=== PATIENT | female | born 1945 | race Caucasian/White ===

== ENCOUNTER → 2019-01-23 11:14 | Outpatient (CLI) | payer MEDICARE, OTHER, SELFPAY ==
[2019-01-23 13:02] LABS: Anion Gap 8 (5-15); BUN 29 mg/dL (7-18); Calcium,Total 9.2 mg/dL (8.5-10.1); Chloride 104 mmol/L (98-107); Cholesterol 211 mg/dL (200); Creatinine, Serum 0.64 mg/dL (0.55-1.02); EST Glomerular Filtration Rate 96 mL/min (>60); Est Glom Filt Rate - Afr Amer 116 mL/min (>60); Glucose 80 mg/dL (74-106); High Density Lipoprotein 80 mg/dL; Sodium Level 140 mmol/L (136-145); Triglycerides 108 mg/dL; Very Low Density Lipoprotein 22 mg/dL (5-40)
== END ==
PROVIDERS: Family Provider Family Medicine; PCP Family Medicine; Referring Provider Family Medicine; Visit Provider Family Medicine
DX: I10 Essential (primary) hypertension (principal)
CPT/HCPCS: 36415; 80048; 80061

== ENCOUNTER → 2019-07-28 | Outpatient (CLI) | payer MEDICARE, OTHER, SELFPAY ==
--- NOTE | 2019-07-28 14:30 | RAD_ITS ---
STUDY: X-RAY CHEST REASON FOR EXAM: Female, 73 years old. Shortness of breath. Right lung mass. TECHNIQUE: Frontal view of the chest COMPARISON: None. FINDINGS: There is a 5.0 x 4.3 cm right apical mass. The lungs are otherwise clear. There are no pleural effusions. There is no pneumothorax. The heart is normal in size. The visualized osseous structures are within normal limits. RAD/Chest PA and Lateral IMPRESSION: 5.0 x 4.3 cm right apical mass. No pulmonary infiltrates or pleural effusions. Electronically Signed: Matty Caldera, at 15:00 EDT Tel , Service support ,
[2019-07-28 17:58] LABS: T4 Total, Thyroxin 9.4 ug/dL (4.8-13.9); Thyroid Stim Hormone (TSH) 1.82 uIU/mL (0.358-3.74)
== END | disposition home or self-care (01) ==
LOC: MTLAB 14:27
PROVIDERS: Family Provider Family Medicine; PCP Family Medicine; Referring Provider Family Medicine; Visit Provider Family Medicine
DX: E04.1 Nontoxic single thyroid nodule (principal); R91.8 Other nonspecific abnormal finding of lung field
CPT/HCPCS: 36415; 71046; 84436; 84443

== ENCOUNTER → 2019-07-31 | Outpatient (CLI) | payer MEDICARE, OTHER, SELFPAY ==
--- NOTE | 2019-07-31 13:13 | US_ITS ---
STUDY: THYROID ULTRASOUND REASON FOR EXAM: Female, 73 years old. Nodule. TECHNIQUE: Ultrasound evaluation of the thyroid was performed with real-time and static silveira-scale imaging. COMPARISON: None. FINDINGS: RIGHT LOBE: The right lobe of the thyroid gland measures 4.1 x 1.0 x 1.6 cm. There is a homogeneous echotexture. There are no demonstrated solid, cystic or complex lesions. Normal vascularity on Doppler imaging. LEFT LOBE: The left lobe of the thyroid gland measures 2.6 x 1.7 x 1.2 cm. There is a homogeneous echotexture. There are no demonstrated solid, cystic or complex lesions. There is normal vascularity on Doppler imaging. ISTHMUS: The isthmus measures 0.2 cm. The regional lymph nodes are normal. US/Thyroid IMPRESSION: Normal ultrasound examination of the thyroid. Electronically Signed: Ilan Delarosa DO at 17:17 EDT Tel [phone], Service support ,
== END | disposition home or self-care (01) ==
LOC: US 13:09
PROVIDERS: Family Provider Family Medicine; PCP Family Medicine; Referring Provider Family Medicine; Visit Provider Family Medicine
DX: E04.1 Nontoxic single thyroid nodule (principal)
CPT/HCPCS: 76536

== ENCOUNTER → 2020-03-02 | Outpatient (CLI) | payer MEDICARE, OTHER, SELFPAY ==
--- NOTE | 2020-03-02 09:15 | RAD_ITS ---
STUDY: X-RAY - LEFT WRIST REASON FOR EXAM: Female, 74 years old. NO KNOWN INJURY. PAIN IN LEFT WRIST LATERALLY FOR ALMOST 2 WEEKS NOW. TECHNIQUE: 3 view(s) of the wrist were obtained. COMPARISON: None. FINDINGS: Normal visualized distal radius and ulna. Normal radiocarpal articulation. Normal distal radioulnar articulation. Normal carpal bones. Normal carpal articulations. Normal carpometacarpal articulation of the thumb. Normal second through fifth carpometacarpal articulations. Normal visualized metacarpal bones. Mild degree of soft tissue swelling. RAD/Wrist min 3 Views IMPRESSION: Mild soft tissue swelling. Electronically Signed: Rik Hanna, at 11:11 EDT , Service support ,
[2020-03-02 10:15] LABS: Anion Gap 1 (5-15); BUN 25 mg/dL (7-18); BUN/Creat Ratio 29.9 RATIO (10-20); Calcium,Total 9.8 mg/dL (8.5-10.1); Chloride 106 mmol/L (98-107); Creatinine, Serum 0.84 mg/dL (0.55-1.02); EST Glomerular Filtration Rate 71 mL/min (>60); Est Glom Filt Rate - Afr Amer 85 mL/min (>60); Glucose 66 mg/dL (74-106); Potassium 4.3 mmol/L (3.5-5.1); Sodium Level 140 mmol/L (136-145)
== END | disposition home or self-care (01) ==
PROVIDERS: PCP Family Medicine; Referring Provider Family Medicine; Visit Provider Family Medicine
DX: I10 Essential (primary) hypertension (principal); M25.532 Pain in left wrist
CPT/HCPCS: 36415; 73110; 80048

== ENCOUNTER → 2020-11-22 14:09 | Outpatient (CLI) | payer MEDICARE, OTHER, SELFPAY ==
[2020-11-22 18:09] LABS: Absolute Lymphocyte Count 1.33 X10^3/uL (0.83-4.51); Absolute Neutrophil Count 3.4 X10^3/uL (2.0-7.7); Basophil# 0.05 X10^3/uL; Basophil% 0.8 % (0-1); Eosinophil# 0.48 X10^3/uL; Eosinophils% 8.1 % (0-5); Hemoglobin 11.1 g/dL (12.0-15.0); Lymphocyte # 1.33 X10^3/ul (4.0); Lymphocyte % 22.6 % (19-41); Mean Corp Hgb Conc 29.2 g/dL (32-36); Mean Corpuscular Hgb 26.9 pg (27.0-32.0); Mean Platelet Vol. 10.4 fl (6.2-12.0); Monocyte# 0.63 X10^3/uL; Monocyte% 10.7 % (0-10); NRBC Flagged by Analyzer 0 % (0-5); Neutrophil # 3.39 X10^3/uL (2.7-7.7); Neutrophil % 57.6 % (47-70); Platelet Count 466 K/mm3 (150-450); RBC Distribution Width CV 14.7 % (11.6-14.6); RBC Distribution Width SD 49.8 fl (35.1-43.9); Red Blood Count 4.13 M/mm3 (4.2-5.4); White Blood Count 5.9 K/mm3 (4.4-11.0)
== END ==
PROVIDERS: PCP Family Medicine; Visit Provider Family Medicine
DX: D64.9 Anemia, unspecified (principal)
CPT/HCPCS: 36415; 85025

== ENCOUNTER → 2021-03-15 12:34 | Outpatient (CLI) | payer MEDICARE, OTHER, SELFPAY ==
--- NOTE | 2021-03-15 12:42 | RAD_ITS ---
INDICATION: NUMBNESS AND TINGLING EXAMINATION/TECHNIQUE: X-RAY - XR Spine Cervical 4 or 5 Views COMPARISON: None. FINDINGS: VERTEBRAE: Preserved vertebral body height. No fracture. Multilevel spondylolisthesis including 2 mm retrolisthesis C2 on C3, 3 mm anterolisthesis C4 on C5, 1 mm anterolisthesis C6 on C7 and 2 mm anterolisthesis C7 on T1. Preservation of the normal cervical lordosis. Moderate multilevel facet arthropathy. Posterior fusion hardware from T1 to T3. DISCS: Moderate multilevel disc space narrowing and osteophytosis. NECK SOFT TISSUES: No prevertebral soft tissue widening. LUNG APICES: Clear. RAD/Cerv Spine 4 or 5 Views IMPRESSION: Multilevel spondylolisthesis as described above. Moderate multilevel cervical spondylosis and facet arthropathy. Posterior fusion T1 to T3. Electronically Signed: Saeid Moyer MD at 23:56 EDT Tel , Service support ,
== END ==
PROVIDERS: PCP Family Medicine; Referring Provider Family Medicine; Visit Provider Family Medicine
DX: R20.0 Anesthesia of skin (principal); R20.2 Paresthesia of skin
CPT/HCPCS: 72050

== ENCOUNTER → 2021-05-31 14:10 | Outpatient (CLI) | payer MEDICARE, OTHER, SELFPAY ==
[2021-05-31 17:39] LABS: Absolute Lymphocyte Count 0.99 X10^3/uL (0.83-4.51); Absolute Neutrophil Count 4.2 X10^3/uL (2.0-7.7); Basophil# 0.04 X10^3/uL; Basophil% 0.7 % (0-1); Eosinophil# 0.09 X10^3/uL; Eosinophils% 1.5 % (0-5); Hematocrit 46.1 % (37-47); Hemoglobin 14.7 g/dL (12.0-15.0); Lymphocyte # 0.99 X10^3/ul (0.83-4.51); Lymphocyte % 16.9 % (19-41); Mean Corp Hgb Conc 31.9 g/dL (32-36); Mean Corpuscular Hgb 27.9 pg (27.0-32.0); Mean Corpuscular Volume 87.6 fL (81-99); Mean Platelet Vol. 10.8 fl (6.2-12.0); Monocyte# 0.58 X10^3/uL; Monocyte% 9.9 % (0-10); NRBC Flagged by Analyzer 0 % (0-5); Neutrophil # 4.15 X10^3/uL (2.7-7.7); Neutrophil % 70.7 % (47-70); Platelet Count 311 K/mm3 (150-450); RBC Distribution Width CV 13.9 % (11.6-14.6); RBC Distribution Width SD 44.5 fl (35.1-43.9); Red Blood Count 5.26 M/mm3 (4.2-5.4); White Blood Count 5.9 K/mm3 (4.4-11.0)
[2021-05-31 18:42] LABS: Anion Gap 6 (5-15); BUN 22 mg/dL (7-18); BUN/Creat Ratio 28.9 RATIO (10-20); Calcium,Total 9.4 mg/dL (8.5-10.1); Chloride 102 mmol/L (98-107); Creatinine, Serum 0.76 mg/dL (0.55-1.02); EST Glomerular Filtration Rate 78 mL/min (>60); Est Glom Filt Rate - Afr Amer 95 mL/min (>60); Glucose 89 mg/dL (74-106); Magnesium 2.1 mg/dL (1.6-2.6); Potassium 3.8 mmol/L (3.5-5.1); Sodium Level 139 mmol/L (136-145)
== END ==
PROVIDERS: PCP Family Medicine; Visit Provider Family Medicine
DX: K21.9 Gastro-esophageal reflux disease without esophagitis (principal); D64.9 Anemia, unspecified; I10 Essential (primary) hypertension
CPT/HCPCS: 36415; 80048; 83735; 85025

== ENCOUNTER → 2022-06-12 | Outpatient (CLI) | payer MEDICARE, OTHER, SELFPAY ==
[2022-06-12 12:31] LABS: Anion Gap 5 (5-15); BUN 25 mg/dL (7-18); BUN/Creat Ratio 39.8 RATIO (10-20); Calcium,Total 9.4 mg/dL (8.5-10.1); Chloride 105 mmol/L (98-107); Cholesterol 217 mg/dL (200); Creatinine, Serum 0.63 mg/dL (0.55-1.02); EST Glomerular Filtration Rate 98 mL/min (>60); Est Glom Filt Rate - Afr Amer 118 mL/min (>60); Glucose 79 mg/dL (74-106); High Density Lipoprotein 70 mg/dL; Sodium Level 142 mmol/L (136-145); Triglycerides 166 mg/dL; Very Low Density Lipoprotein 33 mg/dL (5-40)
== END | disposition home or self-care (01) ==
LOC: MFPLAB 10:17
PROVIDERS: PCP Family Medicine; Visit Provider Family Medicine
DX: I10 Essential (primary) hypertension (principal)
CPT/HCPCS: 36415; 80048; 80061

== ENCOUNTER → 2022-06-21 | Outpatient (CLI) | payer MEDICARE, OTHER, SELFPAY ==
--- NOTE | 2022-06-21 11:00 | BD_ITS ---
STUDY: DUAL ENERGY X-RAY ABSORPTIOMETRY / DXA REASON FOR EXAM: Female, 76 years old. [id number]. Patient is postmenopausal. TECHNIQUE: Bone Mineral Density (BMD) measurements of lumbar spine and bilateral hips were obtained. COMPARISON: None. FINDINGS: Lumbar Spine (L1-L4): g/cm2 (0.680) / T-score (-3.3) / Z-score (-0.8) Findings are suggestive of osteoporosis with a high fracture risk. Left Femur Total: g/cm2 (0.619) / T-score (-2.7) / Z-score (-0.7) Left Femoral Neck: g/cm2 (0.507) / T-score (-3.1) / Z-score (-0.9) Right Femur Total: g/cm2 (0.576) / T-score (-3.0) / Z-score (-1.1) Right Femoral Neck: g/cm2 (0.498) / T-score (-3.2) / Z-score (-1.0) BD/Dexa Bone Density Study IMPRESSION: The patient is considered osteoporotic as outlined below according to World [employer] Organization (WHO) criteria with a high fracture risk. Reference Information: The T-score is the number of standard deviations above or below the standard which is normal for young adults at their peak bone mineral density. The World Health Organization (WHO) interprets the T-scores as follows: Above -1 Normal bone density Between -1 and -2.5 Osteopenia Equal to / or below -2.5 Osteoporosis As a practical clinical guideline, osteopenia may be graded as follows: Mild -1 through -1.5 Moderate -1.6 through -2.0 Severe -2.1 through -2.4 The Z-score is the number of standard deviations above or below age-matched controls. A Z-score of less than -1.5 would be considered abnormal. References: 1. NIH Osteoporosis and Related Bone Diseases www osteo.org 2. International Society for Clinical Densitometry www iscd.org 3. National Osteoporosis Foundation www nof.org Electronically Signed: Rik Hanna MD at 11:21 EDT ,
== END | disposition home or self-care (01) ==
LOC: OPBD 10:52
PROVIDERS: PCP Family Medicine; Visit Provider Family Medicine
DX: M81.0 Age-related osteoporosis without current pathological fracture (principal); Z78.0 Asymptomatic menopausal state; M85.80 Other specified disorders of bone density and structure, unspecified site
CPT/HCPCS: 77080

== ENCOUNTER → 2023-03-11 | Outpatient (CLI) | payer MEDICARE, OTHER, SELFPAY | END | disposition home or self-care (01) | PROVIDERS: PCP Family Medicine; Visit Provider Family Medicine | DX: R19.7 Diarrhea, unspecified (principal) | CPT/HCPCS: 87177; 87209; 87493 ==

== ENCOUNTER → 2023-04-16 | Outpatient (CLI) | payer MEDICARE, OTHER, SELFPAY ==
[2023-04-16 17:58] LABS: Absolute Lymphocyte Count 1.11 X10^3/uL (0.83-4.51); Absolute Neutrophil Count 3.5 X10^3/uL (2.0-7.7); Basophil# 0.04 X10^3/uL; Basophil% 0.7 % (0-1); Eosinophil# 0.22 X10^3/uL; Hematocrit 42.8 % (37-47); Hemoglobin 13.3 g/dL (12.0-15.0); Lymphocyte # 1.11 X10^3/ul (0.83-4.51); Lymphocyte % 20.1 % (19-41); Mean Corp Hgb Conc 31.1 g/dL (32-36); Mean Corpuscular Hgb 28.2 pg (27.0-32.0); Mean Corpuscular Volume 90.9 fL (81-99); Mean Platelet Vol. 10.8 fl (6.2-12.0); Monocyte# 0.63 X10^3/uL; Monocyte% 11.4 % (0-10); NRBC Flagged by Analyzer 0 % (0-5); Neutrophil # 3.52 X10^3/uL (2.7-7.7); Neutrophil % 63.6 % (47-70); Platelet Count 290 K/mm3 (150-450); RBC Distribution Width CV 14.1 % (11.6-14.6); RBC Distribution Width SD 47.4 fl (35.1-43.9); Red Blood Count 4.71 M/mm3 (4.2-5.4); White Blood Count 5.5 K/mm3 (4.4-11.0)
[2023-04-16 18:45] LABS: ALB/GLOB Ratio 0.9 RATIO (0.9-2.4); AST(SGOT) 29 U/L (15-37); Alanine Aminotransfer ALT/SGPT 29 U/L (13-56); Albumin, Serum 3.4 g/dL (3.2-5.0); Alkaline Phosphatase 100 U/L (45-117); Anion Gap 6 (5-15); BUN 27 mg/dL (7-18); BUN/Creat Ratio 36.7 RATIO (10-20); Calcium,Total 8.9 mg/dL (8.5-10.1); Chloride 107 mmol/L (98-107); Creatinine, Serum 0.74 mg/dL (0.55-1.02); EST Glomerular Filtration Rate 81 mL/min (>60); Est Glom Filt Rate - Afr Amer 98 mL/min (>60); Globulin 3.7 g/dL (2.2-4.2); Glucose 88 mg/dL (74-106); Protein, Total 7.1 g/dL (6.4-8.2); Sodium Level 141 mmol/L (136-145); Thyroid Stim Hormone (TSH) 1.55 uIU/mL (0.358-3.74)
== END | disposition home or self-care (01) ==
LOC: MTLAB 16:26
PROVIDERS: PCP Family Medicine; Referring Provider Family Medicine; Visit Provider Family Medicine
DX: R06.02 Shortness of breath (principal)
CPT/HCPCS: 36415; 80053; 82378; 84443; 85025

== ENCOUNTER → 2023-06-12 | Outpatient (CLI) | payer MEDICARE, OTHER, SELFPAY ==
[2023-06-12 12:51] LABS: Cholesterol 210 mg/dL (200); High Density Lipoprotein 78 mg/dL; Triglycerides 124 mg/dL; Very Low Density Lipoprotein 25 mg/dL (5-40)
[2023-06-12 13:14] LABS: Vitamin D,25 Hydroxy 47.8 ng/mL
== END | disposition home or self-care (01) ==
LOC: MFPLAB 09:47
PROVIDERS: PCP Family Medicine; Visit Provider Family Medicine
DX: I10 Essential (primary) hypertension (principal); M81.0 Age-related osteoporosis without current pathological fracture
CPT/HCPCS: 36415; 80061; 82306

== ENCOUNTER 2024-06-28 10:46 | Emergency (ER) | payer MEDICARE, OTHER, SELFPAY ==
[2024-06-28 10:47] VITALS: BP 179/77; PULSE 64; RESP 16; TEMP 36.7; O2SAT 97; BMI 19.5
--- NOTE | 2024-06-28 11:01 | EDS_ITS ---
HPI HPI - Fall History of Present Illness Chief Complaint: Fall PFSH PFSH Allergy/AdvReac Type Severity Reaction Status Date / Time atenolol (From Tenormin) Allergy Mild Other Verified 06/28/24 10:52 lisinopril Allergy Mild Swelling Verified 06/28/24 10:52 Penicillins Allergy Mild RASH Verified 06/28/24 10:52 Social History Smoking Status: Never smoker EXAM Physical Exam Const Vital Signs: 06/28/24 10:47 06/28/24 11:14 Temperature 98.0 F Temperature Source Temporal Pulse Rate 64 Respiratory Rate 16 Respiratory Effort Normal Respiratory Depth Normal Blood Pressure 179/77 H Blood Pressure Mean 111 Pulse Ox 97 Oxygen Delivery Method Room Air MDM MDM MDM Narrative Medical decision making narrative: HISTORY OF PRESENT ILLNESS: 78-year-old female reports fall from stool last night with report of injury to left wrist, bilateral shoulders. Patient also complains about headache but denies head trauma. Notes she was standing on a kid stool. States she was trying to reattach a tension. She notes she fell down onto her back. She is unsure how she fell. She is sure she not hit her head. She complains of bilateral shoulder pain left wrist pain. She notes history of spinal surgery. Denies taking blood thinners. Denies any vomiting. Nothing focal loss of movement or sensation. REVIEW OF SYSTEMS: Pertinent positives: Wrist pain, shoulder pain and headache Pertinent negatives: Vomiting, abdominal pain PHYSICAL EXAM: Nursing triage notes reviewed, Vital signs reviewed Primary Survey Airway: Intact Breathing: Bilateral breath sounds Circulation: Palpable bilateral femorals, Palpable bilateral radial, Palpable bilateral DP and Palpable bilateral PT Disability / Spine precautions GCS Score: Eye Openin Verbal Response: 5 Motor Response: 6 Secondary Survey Constitutional: Please see MDM Head: Atraumatic, Midface stable, NO jaw malocclusion, No Cephalohematoma, and No Lacerations noted Eye: Pupils equal round and reactive to light, Extraocular muscles intact and No periorbital ecchymosis or stepoff, no evidence of entrapment ENT: Oropharynx clear, no lacerations, no hemotympanum, no raccoon eyes or umaña sign Cervical spine / Neck: No cervical spine bony tenderness, crepitance, or stepoff deformity Trachea midline Lungs: Clear to auscultation, No asymmetric rise and No crepitus, no flail chest Cardiac: Regular rate and rhythm and No murmurs Abdomen: Soft, Nontender and No rebound Pelvis: Pelvis stable to compression : No evidence of genital injury Back: TTP over cervical thoracic and upper lumbar vertebrae. Neuro: At baseline, intact strength and sensation in bilateral upper and lower extremities. 2+ patellar reflexes bilaterally. Extremities: NO gross Deformities, TTP over bilateral shoulders and left wrist. Psych: Normal affect Skin: Surgical scars noted over the thoracic spine, clean dry intact no fluctuance induration. Nursing triage notes reviewed, Vital signs reviewed MEDICAL DECISION MAKING: Chief Complaint: Fall External records reviewed: Imaging reviewed: X-ray of the cervical spine from 2020 shows multilevel spondylolisthesis, fusion of T1-T3 Factors affecting care: Prior spinal fusion Social determinants of health: Elderly History obtained from others: Family friend Consults: none MDM Narrative: Patient was initially hypertensive with a blood pressure 179/77, afebrile and nontoxic-appearing Primary and secondary trauma surveys concerning for intracranial, cervical, thoracic, lumbar spine injury, bilateral shoulder injury and left wrist injury. I considered the following differential diagnosis: As above I obtained a broad imaging workup to further elucidate the etiology of the patient complaint. I treated the patient's symptoms with oral Tylenol. ALL IMAGES (IF OBTAINED) HAVE BEEN PERSONALLY REVIEWED AND INTERPRETED BY MYSELF. X-ray of the left wrist and bilateral shoulder was read and reviewed personally by myself and showed no evidence of obvious fracture dislocation. Radiologist agrees my interpretation CT scans of the head, cervical spine thoracic lumbar spine showed no evidence of obvious bony abnormality. Tertiary trauma exam without new injury. Patient ambulated well Emergency Department. Appropriate discharge home. She is concern for contusions of the involved areas. This will improve without intervention. Strict return precautions discussed. The patient and/or family, caregivers express understanding. The patient and/or family, caregivers agrees with the plan. Shared decision making: I will have a discussion with the patient and or visitors regarding risk/benefits of further testing or admission. They will be made aware of of the risk/benefits inherent in this decision they will be given the opportunity to voice understanding. Total critical care time today provided was at least 0 minutes. This excludes separately billable procedures. Critical care time (if documented) is secondary to the patient having high probability of clinically significant/life threatening deterioration in the patient's condition which required my urgent intervention. Impression: 1. Fall 2. Bilateral shoulder contusion 3. Left wrist contusion 4. History of T1-T3 posterior spinal fusion Dispo: Discharge home This note was generated with [employer] dictation software. It may contain incorrect words, spelling, and punctuation that were not noted in review of the chart prior to signing. Radiography Diagnostic Testing: Clinical Impression(s) from Imaging Studies Brain CT 06/28/24 11:12 IMPRESSION: No acute intracranial abnormality. Chronic ischemic and atrophic changes. Electronically Signed: Matty Caldera MD at 12:02 EDT , Cervical Spine CT 06/28/24 11:12 IMPRESSION: No fracture or dislocation in the cervical spine. Normal alignment. Mild degenerative change. Electronically Signed: Matty Caldera MD at 12:05 EDT , Lumbar Spine CT 06/28/24 11:12 IMPRESSION: Multilevel degenerative changes worse at the level of L4-L5 as described above. Electronically Signed: Black León MD at 12:10 EDT , Shoulder X-Ray 06/28/24 11:12 IMPRESSION: Negative radiographs of the bilateral shoulders. Electronically Signed: Matty Caldera MD at 11:55 EDT , Thoracic Spine CT 06/28/24 11:12 IMPRESSION: No fracture or dislocation in the thoracic spine. Status post posterior fusion of T1-T3. Mild degenerative change. Electronically Signed: Matty Caldera MD at 12:11 EDT , Wrist X-Ray 06/28/24 11:12 IMPRESSION: No fracture or dislocation in the left wrist. Mild degenerative change. Electronically Signed: Matty Caldera MD at 11:56 EDT , Discharge Plan Triage Chief Complaint: Fall ED Provider: Ty Veliz Dx/Rx/DC Orders Primary Care Provider: Lesley Bang Referrals: Leslye Bang MD [Primary Care Provider] - Print Language: Croatian
--- NOTE | 2024-06-28 11:12 | CT_ITS ---
INDICATION: back pain EXAMINATION: CT LUMBAR SPINE - CT Spine Lumbar W/O Contrast Injection TECHNIQUE: Helically acquired images were obtained of the lumbar spine. 2D reformats were reviewed. A radiation dose optimization technique was used for this scan. The protocol utilizes one or more of the following dose reduction techniques: automated exposure control, adjustment of mA and/or kV according to patient size,and/or use of iterative reconstruction technique. IV Contrast dosage and agent: None. RADIATION DOSAGE (If Supplied By Facility): CTDIvol = ( 15.05 ) mGy, DLP = ( 347.03 ) mGycm COMPARISON: No relevant prior comparison study available FINDINGS: VERTEBRAE: Demineralization of the osseous structures. No evidence of acute compression fracture deformity. No discrete lytic or blastic abnormality observed. Normal lumbar lordosis. Mild dextroscoliosis. DISCS and SPINAL CANAL: L1-L2: No evidence of central spinal canal or neuroforamina stenosis. L2-L3: Narrowing of the disc space. No evidence of central spinal canal or neural foraminal stenosis. L3-L4: Narrowing of the disc space. Broad-based disc bulging extending to the lateral recesses. No critical stenosis. L4-L5: Mild grade 1 anterolisthesis of L4 over L5. Broad-based disc protrusion extending to the lateral recesses. Hypertrophic degenerative changes of the facet joints. Moderate narrowing of the central spinal canal and left neural foramina. L5-S1: Degenerative changes of the facet joints. Mild broad-based disc bulging. No critical stenosis. VISUALIZED ABDOMEN: Visualized abdominal aorta is not dilated. Right renal cyst. CT/Spine Lumbar without Contrast IMPRESSION: Multilevel degenerative changes worse at the level of L4-L5 as described above. Electronically Signed: Black León MD at 12:10 EDT ,
--- NOTE | 2024-06-28 11:12 | RAD_ITS ---
STUDY: X-RAY - LEFT WRIST REASON FOR EXAM: Female, 78 years old. Fall TECHNIQUE: 3 view(s) of the wrist were obtained. COMPARISON: None. FINDINGS: There is no evidence of fracture or dislocation. There are mild degenerative changes in the radiocarpal joints. There are no radiodense foreign bodies. RAD/Wrist min 3 Views IMPRESSION: No fracture or dislocation in the left wrist. Mild degenerative change. Electronically Signed: Matty Caldera MD at 11:56 EDT ,
--- NOTE | 2024-06-28 11:12 | CT_ITS ---
STUDY: CT BRAIN WITHOUT CONTRAST REASON FOR EXAM: Female, 78 years old. Fall RADIATION DOSAGE (If Supplied By Facility): CTDIvol = ( 44.99 ) mGy, DLP = ( 748.30 ) mGycm TECHNIQUE: Transaxial CT imaging of the brain was performed without administration of intravenous contrast material. Individualized dose optimization techniques were used for this CT. COMPARISON: No relevant prior comparison study available FINDINGS: PARENCHYMA: There is no acute bleed or infarct. There are chronic ischemic and atrophic changes. VENTRICLES: There is no hydrocephalus. MASTOID AIR CELLS AND PARANASAL SINUSES: The visualized paranasal sinuses are clear. The mastoid air cells are clear. BONES: There is no skull fracture. SOFT TISSUES: The visualized soft tissues are within normal limits. CT/Brain/Head without Contrast IMPRESSION: No acute intracranial abnormality. Chronic ischemic and atrophic changes. Electronically Signed: Matty Caldera MD at 12:02 EDT ,
--- NOTE | 2024-06-28 11:12 | CT_ITS ---
STUDY: CT CERVICAL SPINE WITHOUT CONTRAST REASON FOR EXAM: Female, 78 years old. Fall. Pain. RADIATION DOSAGE (If Supplied By Facility): CTDIvol = ( 13.84 ) mGy, DLP = ( 294.75 ) mGycm TECHNIQUE: High resolution transaxial imaging was performed without contrast material. Sagittal and coronal images were reconstructed. Individualized dose optimization techniques were used for this CT. COMPARISON: No relevant prior comparison study available FINDINGS: BONES: There is no fracture in the cervical spine. The dens is intact. The vertebral body heights are maintained. There is fusion hardware noted in the upper thoracic spine. ALIGNMENT: There is no dislocation. Alignment is normal. DISC SPACES: There are mild degenerative changes. LUNG APICES: There is scarring in the lung apices. SOFT TISSUES: The visualized paraspinal soft tissues are within normal limits. CT/Spine Cervical without Contras IMPRESSION: No fracture or dislocation in the cervical spine. Normal alignment. Mild degenerative change. Electronically Signed: Matty Caldera MD at 12:05 EDT ,
--- NOTE | 2024-06-28 11:12 | RAD_ITS ---
STUDY: X-RAY - BILATERAL SHOULDERS REASON FOR EXAM: Female, 78 years old. Fall TECHNIQUE - RIGHT SHOULDER: 2 view(s) of the right shoulder were obtained. TECHNIQUE - LEFT SHOULDER: 2 view(s) of the left shoulder were obtained. COMPARISON: None. FINDINGS - RIGHT SHOULDER: There is no evidence of fracture or dislocation. There are no significant degenerative changes. There are no radiodense foreign bodies. FINDINGS - LEFT SHOULDER: There is no evidence of fracture or dislocation. There are no significant degenerative changes. There are no radiodense foreign bodies. RAD/Shoulder min 2 Views IMPRESSION: Negative radiographs of the bilateral shoulders. Electronically Signed: Matty Caldera MD at 11:55 EDT ,
--- NOTE | 2024-06-28 11:12 | CT_ITS ---
STUDY: CT THORACIC SPINE WITHOUT CONTRAST REASON FOR EXAM: Female, 78 years old. Fall. Pain. RADIATION DOSAGE (If Supplied By Facility): CTDIvol = ( 18.42 ) mGy, DLP = ( 581.19 ) mGycm TECHNIQUE: The patient was scanned in a multi detector CT scanner. High resolution imaging was performed. Images were obtained through the thoracic spine. Sagittal and coronal images were reconstructed. Individualized dose optimization techniques were used for this CT. COMPARISON: No relevant prior comparison study available FINDINGS: BONES: There is fusion hardware spanning T1-T3. There is no fracture in the thoracic spine. The vertebral body heights are maintained. ALIGNMENT: There is no dislocation. DISC SPACES: There are mild degenerative changes. SOFT TISSUES: The visualized paraspinal soft tissues are within normal limits. CT/Spine Thoracic without Contras IMPRESSION: No fracture or dislocation in the thoracic spine. Status post posterior fusion of T1-T3. Mild degenerative change. Electronically Signed: Matty Caldera MD at 12:11 EDT ,
[2024-06-28] MEDS: Acetaminophen 325 MG Tablet 650 MG PO (11:48)
[2024-06-28 13:16] VITALS: BP 156/61; PULSE 64; RESP 16; TEMP 36.7; O2SAT 97
== END 2024-06-28 13:19 | disposition home or self-care (01) ==
PROVIDERS: Emergency Provider Emergency Medicine; PCP Family Medicine; Visit Provider Emergency Medicine
DX: S40.011A Contusion of right shoulder, initial encounter (principal); S40.012A Contusion of left shoulder, initial encounter; S60.212A Contusion of left wrist, initial encounter; W08.XXXA Fall from other furniture, initial encounter; R51.9 Headache, unspecified; Z98.1 Arthrodesis status
CPT/HCPCS: 70450; 72125; 72128; 72131; 73030; 73110; 99282

== ENCOUNTER → 2024-07-17 | Outpatient (CLI) | payer MEDICARE, OTHER, SELFPAY ==
--- NOTE | 2024-07-17 15:17 | RAD_ITS ---
HISTORY: pain, fall. TECHNIQUE: XR Humerus Min 2 Views. COMPARISON: None. FINDINGS: BONES : No acute fracture identified. Mild osteopenia. JOINTS: No dislocation. Mild degenerative change. RAD/Humerus min 2 Views IMPRESSION: No acute fracture or dislocation identified in the right humerus. Electronically Signed: Kalpana Diana MD at 9:58 EDT ,
== END | disposition home or self-care (01) ==
LOC: MTRAD 15:16
PROVIDERS: PCP Family Medicine; Referring Provider Family Medicine; Visit Provider Family Medicine
DX: M79.621 Pain in right upper arm (principal)
CPT/HCPCS: 73060

== ENCOUNTER → 2024-07-26 | Outpatient (CLI) | payer OTHER, MEDICARE, SELFPAY ==
[2024-07-26 14:53] LABS: Bacteria 0 SEEN /hpf (None Seen)
[2024-07-26 16:08] LABS: Color, Urine Yellow (Yellow); Glucose, Dipstick Normal (Normal); Ketone-Dipstick Negative (Negative); Leukocyte Esterase-Dipstick 500 /ul (Negative); Nitrite-Dipstick Negative (Negative); Occult Blood-Urine 50 /ul (Negative); Protein-Dipstick 15 mg/dl (Negative); Specific Gravity, Urine 1.015 (1.002-1.030); Urine Bilirubin Dipstick Negative (Negative); Urine Clarity Sl. Cloudy (Clear); Urine Urobilinogen Normal (Normal)
[2024-07-26 16:52] LABS: Mucous, Urine RARE /hpf (<or=2+); Red Blood Cells-Urine 0-5 SEEN /hpf (0-5); Squamous Epithelial Cells - UA 0-5 SEEN /hpf (5-10); White Blood Cells 5-10 SEEN /hpf (0-5)
== END | disposition home or self-care (01) ==
PROVIDERS: PCP Family Medicine; Referring Provider Physician Assistant; Visit Provider Physician Assistant
DX: N30.01 Acute cystitis with hematuria (principal)
CPT/HCPCS: 81001; 87086; 87088

== ENCOUNTER → 2024-09-21 | Outpatient (CLI) | payer MEDICARE, OTHER, SELFPAY ==
[2024-09-21 15:48] LABS: Mucous, Urine 0 SEEN /hpf (<or=2+); Squamous Epithelial Cells - UA 0 SEEN /hpf (5-10)
[2024-09-21 18:00] LABS: Color, Urine Straw (Yellow); Glucose, Dipstick Normal (Normal); Ketone-Dipstick Negative (Negative); Leukocyte Esterase-Dipstick 500 /ul (Negative); Nitrite-Dipstick Negative (Negative); Occult Blood-Urine 50 /ul (Negative); Protein-Dipstick 30 mg/dl (Negative); Specific Gravity, Urine 1.015 (1.002-1.030); Urine Bilirubin Dipstick Negative (Negative); Urine Clarity Sl. Cloudy (Clear); Urine Urobilinogen Normal (Normal)
[2024-09-21 18:22] LABS: Bacteria 2+ /hpf (None Seen); Red Blood Cells-Urine 5-10 SEEN /hpf (0-5); White Blood Cells 25-50 SEEN /hpf (0-5)
[2024-09-21 18:23] LABS: Amorphous Sediment 2+
--- OUTSIDE RECORDS SUMMARY | 2024-09-21 19:47 | XMS RPT_ITS | CCD ---
Author Organization [facility] Care Team Providers [place] Weighmaster Name Role Phone IMCA Unavailable Unavailable IMCA Unavailable Unavailable IMCA Unavailable Unavailable IMCA Unavailable Unavailable MAGGY SHARP (PA) Unavailable Unavailable MAGGY SHARP (SAVANA) Unavailable Unavailable PRABHU VILLAREAL Unavailable Unavailable Leslye Bang MD Primary Care Provider VELMA GUERIN, DR THORNTON Primary Care Physician Roosevelt PT, Ami Unavailable Unavailable Leslye Bang MD Primary Care Provider Leslye Bang MD Primary Care Provider Hernando OD, India J Unavailable [phone] Tray GUERIN, PhD, Sudish Unavailable Tray GUERIN, PhD, Sudish Unavailable [phone] Veronica Martinez RN Unavailable OHR, ANH Mauricio Attending Unavailable OHR, ANH Mauricio Admitting Unavailable JOLLIFF, LESLYE S Primary Care Unavailable JOLLIFF, LESLYE S Primary Care Unavailable OHR, ANH Mauricio Attending Unavailable SELF, SELF Referring Unavailable JOLLIFF, LESLYE S Attending Unavailable JOLLIFF, LESLYE S Referring Unavailable JOLLIFF, LESLYE S Primary Care Unavailable OHR, ANH Mauricio Referring Unavailable OHR, ANH Mauricio Attending Unavailable JOLLIFF, LESLYE S Primary Care Unavailable SELF, SELF Referring Unavailable OHR, ANH Mauricio Attending Unavailable JOLLIFF, LESLYE S Primary Care Unavailable JOLLIFF, LESLYE S Primary Care Unavailable SELF, SELF Referring Unavailable JOLLIFF, LESLYE S Primary Care Unavailable OHR, ANH Mauricio Attending Unavailable SELF, SELF Referring Unavailable JOLLIFF, LESLYE S Primary Care Unavailable OHR, ANH P Attending Unavailable SELF, SELF Referring Unavailable LESLYE BANG Primary Care Unavailable OHR, ANH P Attending Unavailable SELF, SELF Referring Unavailable MITZI, UZMA Referring Unavailable UZMA HOLGUIN Attending Unavailable UZMA HOLGUIN Referring Unavailable TRAY, SUDISH Referring Unavailable TRAY, SUDISH Referring Unavailable KRISHNANEY, CELIA A Referring Unavailable KRISHNANEY, CELIA A Referring Unavailable KRISHNANEY, CELIA A Attending Unavailable CHARLES PATHAK Attending Unavailable UZMA HOLGUIN Attending Unavailable UZMA HOLGUIN Referring Unavailable Allergies Allergy Classification Reported Allergen(s) Allergy Type Date of Onset Reaction(s) Facility (12 sources) amLODIPine; Translations: [AMLODIPINE BESYLATE] Drug Allergy 6 Swelling [facility] Repository (20 sources) levoFLOXacin; Translations: [LEVOFLOXACIN] Drug Allergy 4 Intolerance [facility] Repository (20 sources) Penicillins; Translations: [PENICILLINS] Propensity to adverse reactions (disorder) 3 Rash [facility] Repository (20 sources) raNITIdine; Translations: [RANITIDINE HCL] Drug Allergy 2 Dizzy/Vertigo, Other: See Comments [facility] Repository (9 sources) amLODIPine; Translations: [AMLODIPINE] Drug Allergy 3 Swelling, Dizzy/Vertigo [facility] Repository (1 source) atenolol; Translations: [ATENOLOL] Drug Allergy 8 [facility] Repository (8 sources) Bacitracin Drug Allergy 0 Itching, Rash, Swelling [facility] (18 sources) Doxycycline; Translations: [DOXYCYCLINE] Drug Allergy 0 Dyspepsia, GI Upset [facility] (12 sources) Lisinopril; Translations: [LISINOPRIL] Drug Allergy 0 [facility] Omeprazole Drug Allergy 3 [facility]iz[facility] (8 sources) Neomycin-Bacitr acin Zn-Polymyx Propensity to adverse reactions to drug 0 Rash [facility] (6 sources) Lisinopril Propensity to adverse reactions to drug 0 Swelling [facility] (10 sources) bacitracin / neomycin / polymyxin b; Translations: [NEOMYCIN-BACIT RACIN-POLYMYXIN ] Drug Allergy 0 Other: See Comments [facility] (10 sources) Mupirocin; Translations: [MUPIROCIN] Drug Allergy 0 Other: See Comments [facility] (10 sources) traMADol; Translations: [TRAMADOL] Drug Allergy 0 Mental Status Change [facility] Work Phone: Medications Current Medications Medication Drug Class(es) Dates Sig (Normalized) Sig (Original) acetaminophen 500 mg oral tablet (17 sources) Start: 11-15-2020 take 1 tablet by mouth every eight hours as needed acetaminophen (TYLENOL EXTRA STRENGTH) 500 mg tablet Take 500 mg by mouth every 8 hours as needed for Pain. 11/15/2020 Active Acetaminophen (T YLENOL EXTRA STRENGTH PO) PRN Active Acetaminophen (T YLENOL EXTRA STRENGTH PO) PRN 0 Active Comment on above: Take 500 mg by mouth every 8 hours as needed for Pain. Biotin w/ Vitamins C & E (HAIR SKIN & NAILS GUMMIES PO) (5 sources) Biotin w/ Vitami ns C & E (HAIR SKIN & NAILS GUMMIES PO) Take by mouth daily. Active Biotin w/ Vitami ns C & E (HAIR SKIN & NAILS GUMMIES PO) Take by mouth daily. 0 Active Calcium Carbonate (9 sources) Start: 11-15-2020 CALCIUM CARBON ATE (TUMS ORAL) Take 1 tablet by mouth as needed (GERD). 11/15/2020 Active Start: 11-15-2020 CALCIUM CARBON ATE (TUMS ORAL) Take 1 tablet by mouth as needed (GERD). 0 11/15/2020 Active Comment on above: Take 1 tablet by juliann th as needed (GERD). Calcium Carbonate Antacid (TUMS PO) (8 sources) Calcium Carbonat e Antacid (TUMS PO) as needed. Active Calcium Carbonat e Antacid (TUMS PO) as needed. 0 Active Calcium Carbonat e Antacid (TUMS PO) cholecalciferol 0.025 mg oral capsule (17 sources) Vitamin D take 1 capsule by mouth once daily Cholecalciferol, Vitamin D3, 1,000 unit cap Take 1,000 Units by mouth once daily. Active Cholecalciferol (VITAMIN D3 PO) Take by mouth. Active Cholecalciferol (VITAMIN D3 PO) Take by mouth. 0 Active Comment on above: Take 1,000 Units by mouth once daily. diphenhydrAMINE hydrochloride 25 mg oral tablet (17 sources) Histamine-1 Receptor Antagonist Start: 11-15-20 take 1 tablet by mouth every six hours as needed diphenhydrAMINE (BENADRYL) 25 mg tablet Take 25 mg by mouth every 6 hours as needed for Itching/Rash. 11/15/2020 Active DiphenhydrAMINE HCl (BENADRYL ALLERGY PO) PRN Active DiphenhydrAMINE HCl (BENADRYL ALLERGY PO) PRN 0 Active Comment on above: Take 25 mg by mouth every 6 hours as needed for Itching/Rash. docusate sodium 100 mg oral tablet (20 sources) take 2 tablets by mouth once daily Docusate Sodium 100 mg Tab Take 2 tablets by mouth once daily. Active DOCUSATE SODIUM 100 mg. 1-2 tablets daily Active DOCUSATE SODIUM 100 mg. 1-2 tablets daily 0 Active Comment on above: Take 2 tablets by [facility] once daily. erythromycin 0.005 mg/mg ophthalmic ointment (8 sources) Macrolide, Macrolide Antimicrobial Start: 12-15-19 apply 3.5 g into the eye(s) three times daily erythromycin 5 MG/GM Ointment ophthalmic ointment Apply to incisions 3 times a day 3.5 g 1 12/15/2021 Active famotidine 20 mg oral tablet (5 sources) Histamine-2 Receptor Antagonist faMOTIdine 20 MG tablet Take 1 tablet by mouth as needed. Active fluticasone propionate 0.05 mg/actuat metered dose nasal spray (17 sources) Corticosteroid Start: 11-15-20 take 2 spray(s) nasal route once daily as needed fluticasone (FLONASE) 50 mcg/actuation nasal spray Use 2 Sprays in each nostril once daily as needed for Cold/Allergy Symptoms. 11/15/2020 Active Start: 01-10-2012 fluticasone (F LONASE) 50 MCG/ACT NA SUSP 2 Sprays by Nasal route daily. 1 Bottle 11 01/10/2012 Active Comment on above: Use 2 Sprays in each nostril once daily as needed for Cold/Allergy Symptoms. hydroCHLOROthiazide 25 mg oral tablet (18 sources) Thiazide Diuretic Start: 11-15-20 20 hydroCHLOROthiazide (HYDRODIURIL, ESIDRIX) 25 mg tablet Take 12.5-25 mg by mouth once daily. 11/15/2020 Active End: 09-20-2023 HYDROCHLOROTHIAZIDE PO HYDROCHLOROTHIAZ DANNY PO Comment on above: Take 12.5-25 mg by m outh once daily. ipratropium bromide 0.021 mg/actuat metered dose nasal spray (8 sources) Anticholinergic Start: 01-10-20 12 ipratropium (ATROVENT) 0.03 % NA SOLN 2 Sprays by Nasal route every 12 hours. 1 Bottle 11 01/10/2012 Active ketorolac tromethamine 5 mg/ml ophthalmic solution (8 sources) Nonsteroidal Anti-inflammatory Drug, Cyclooxygenase Inhibitor Start: 06-29-20 15 take 1 drop(s) into the eye(s) four times daily ketorolac 0.5 % Solution 1 drop by Right Eye route 4 times daily. 1 Bottle 0 06/29/2015 Active Magnesium (8 sources) Magnesium 200 MG Chew Tab 1 tab daily Active Magnesium 200 MG Chew Tab 1 tab daily 0 Active Magnesium 100 MG Cap 1 tab daily 0 Active magnesium hydroxide 80 mg/ml oral suspension (9 sources) Start: 11-04-2020 take 30 mL by mouth once daily as needed for constipation magnesium hydroxide (MOM) 400 mg/5 mL suspension Take 30 mL by mouth once daily as needed for Constipation. 11/04/2020 Active Comment on above: Take 30 mL by mouth once daily as needed for Constipation. Multiple Vitamin (MULTIVITAMIN PO) (8 sources) take 1 tablet by mouth once daily Multiple Vitamin (MULTIVITAMIN PO) 1 Tab daily. Active take 1 tablet by mouth once kya y Multiple Vitamin (MULTIVITAMIN PO) 1 Tab daily. 0 Active MULTIVITAMIN TABLET (9 sources) Start: 08-20-2003 MULTIVITAMIN TABLET Take one(1) tablet daily. 0 08/20/2003 Active Comment on above: Take one(1) tablet d aily. ofloxacin 3 mg/ml ophthalmic solution (5 sources) Quinolone Antimicrobial Start: 12-23-2023 take 1 drop(s) into the eye(s) four times daily ofloxacin (Ocuflox) 0.3 % ophthalmic solution Place 1 drop in left eye 4 times daily. 5 mL 12/23/2023 Active oxymetazoline hydrochloride 1 mg/ml ophthalmic solution (8 sources) Start: 08-16-2021 Oxymetazoline HCl (Upneeq) 0.1 % Solution Indications: Paralytic ptosis, acquired, right Apply 1 vial to eye daily. Lot # [id number] Exp 06/15 5 Each 08/16/2021 Active polymyxin b 22019 unt/ml / trimethoprim 1 mg/ml ophthalmic solution (8 sources) Dihydrofolate Reductase Inhibitor Antibacterial, Polymyxin-class Antibacterial Start: 06-29-2015 take 1 drop(s) into the eye(s) four times daily polymyxin b-trimethoprim (POLYTRIM) 06625-5.1 UNIT/ML-% Solution 1 drop by Right Eye route 4 times daily. 1 Bottle 0 06/29/2015 Active prednisoLONE acetate 10 mg/ml ophthalmic suspension (13 sources) Corticosteroid Start: 06-29-2015 take 1 drop(s) into the eye(s) four times daily prednisoLONE acetate 1 % Suspension ophthalmic suspension Place 1 drop in left eye 4 times daily. 5 mL 12/23/2023 Active vitamin b12 1 mg oral tablet (17 sources) Vitamin B12 take 1 tablet by mouth once daily cyanocobalamin (VITAMIN B-12) 1,000 mcg tab Take 1,000 mcg by mouth once daily. Active Comment on above: Take 1,000 mcg by [facility] once daily. Completed/Discontinued Medications Medication Drug Class(es) Dates Sig (Normalized) Sig (Original) Acetaminophen / HYDROcodone (1 source) Opioid Agonist Start: 11-15-2020 End: 02-12-2022 take 5-325 mg by mouth every eight hours as needed HYDROCODONE-ACETA MINOPHEN ORAL Take 5-325 mg by mouth every 8 hours as needed (Pain). 11/15/2020 02/12/2022 Discontinued (Course of therapy completed) lidocaine 0.04 mg/mg medicated patch (1 source) Antiarrhythmic, Amide Local Anesthetic Start: 11-04-2020 End: 02-12-2022 lidocaine (SALONPAS) 4 % patch Apply 1 Patch as directed as needed. 11/04/2020 02/12/2022 Discontinued (Course of therapy completed) perflutren lipid microspheres 1.3 mL in NaCl (PF) 0.9% 10 mL injection (DEFINITY) (1 source) Start: 09-12-2020 End: 12-12-2021 perflutren lipid microspheres 1.3 mL in NaCl (PF) 0.9% 10 mL injection (DEFINITY) predniSONE 10 mg oral tablet (2 sources) Start: 05-13-2019 End: 03-03-2024 predniSONE (DELTASONE) 10 mg tablet 10 mg. 0 05/13/2019 03/03/2024 Discontinued Comment on above: 10 mg. 125 ml sodium chloride 9 mg/ml prefilled syringe (1 source) Start: 09-12-2020 End: 12-12-2021 sodium chloride 0.9 % (flush) 10 mL (BD POSIFLUSH) sulfamethoxazole 800 mg / trimethoprim 160 mg oral tablet (2 sources) Dihydrofolate Reductase Inhibitor Antibacterial, Sulfonamide Antimicrobial Start: 02-09-2022 End: 03-03-2024 take 1 tablet by mouth twice daily sulfamethoxazole- trimethoprim (BACTRIM DS,SEPTRA DS) 800-160 mg per tablet Take 1 tablet by mouth twice daily. 0 02/09/2022 03/03/2024 Discontinued Comment on above: Take 1 tablet by juliann twice daily. Jhoan misc (1 source) Start: 11-03-2020 End: 02-12-2022 Jhoan misc Indications: Schwannoma , Pain, postoperative, acute 1 Device as needed. 1 Each 11/03/2020 02/12/2022 Discontinued (Course of therapy completed) Problems Active Problems Problem Classification Problem Date Documented Date Episodic/Chronic Blindness and vision defects (1 source) Generalized contraction of visual field, left eye; Translations: [Generalized visual field contraction or constriction] 01-03-2024 Episodic Cancer of rectum and anus (20 sources) History of malignant neoplasm of digestive organ; Translations: [Personal history of other malignant neoplasm of rectum, rectosigmoid junction, and anus] Onset: 05-13-2009 05-13-2009 Episodic Cardiac and circulatory congenital anomalies (9 sources) Patent foramen ovale; Translations: [PFO (patent foramen ovale)] Onset: 10-09-2020 10-09-2020 Chronic Cataract (20 sources) Senile cataract; Translations: [Unspecified age-related cataract] Onset: 05-03-2011 05-03-2011 Chronic Disorders of lipid metabolism (8 sources) Hyperlipidemia; Translations: [Hyperlipidemia, unspecified] Onset: 11-30-2010 11-30-2010 Chronic Esophageal disorders (9 sources) Gastroesophageal reflux disease; Translations: [Gastro-esophageal reflux disease without esophagitis] Onset: 06-01-2013 07-09-2019 Chronic Essential hypertension (17 sources) Hypertensive disorder; Translations: [Essential (primary) hypertension] Onset: 11-30-2010 11-30-2010 Chronic Fracture of lower limb (1 source) Displaced comminuted fracture of right patella, initial encounter for closed fracture; Translations: [Displaced comminuted fracture of right patella, initial encounter for closed fracture] Onset: 06-05-2018 Episodic Heart valve disorders (8 sources) Mitral valve prolapse; Translations: [Nonrheumatic mitral (valve) prolapse] Onset: 11-30-2010 11-30-2010 Chronic Neoplasms of unspecified nature or uncertain behavior (1 source) Neoplasm of lung ; Translations: [Neoplasm of unspecified behavior of respiratory system] 03-03-2024 Episodic Other aftercare (4 sources) Surgical follow-up; Translations: [Encounter for follow-up examination after completed treatment for conditions other than malignant neoplasm] Episodic Other and unspecified benign neoplasm (1 source) Benign neoplasm of peripheral nerves and autonomic nervous system, unspecified; Translations: [Benign neoplasm of peripheral nerves and autonomic nervous system, unspecified] Onset: 05-08-2018 Episodic Other and unspecified benign neoplasm (12 sources) Nevus of choroid of left eye; Translations: [Benign neoplasm of left choroid] Onset: 01-25-2015 Episodic Other and unspecified benign neoplasm (2 sources) Schwannoma of nerve of chest; Translations: [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] 03-02-2024 Episodic Other eye disorders (8 sources) Posterior vitreous detachment; Translations: [Vitreous degeneration, unspecified eye] Onset: 05-03-2011 05-03-2011 Chronic Other eye disorders (1 source) Posterior vitreous detachment of left eye; Translations: [Vitreous degeneration, left eye] 04-13-2024 Chronic Other eye disorders (2 sources) Vitreous degeneration, left eye; Translations: [Vitreous degeneration, left eye] Onset: 05-03-2011 Chronic Other nervous system disorders (1 source) Acquired right-sided Aydin syndrome; 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 Other nervous system disorders (1 source) Abnormal gait; Translations: [Unspecified abnormalities of gait and mobility] 06-23-2024 Episodic Other nervous system disorders (1 source) Poor manual dexterity; Translations: [Other lack of coordination] 06-23-2024 Episodic Other upper respiratory infections (8 sources) Chronic sinusitis; Translations: [Chronic sinusitis, unspecified] Onset: 02-21-2012 02-21-2012 Chronic Retinal detachments; defects; vascular occlusion; and retinopathy (20 sources) Epiretinal membrane; Translations: [Puckering of macula, unspecified eye] Onset: 09-01-2012 09-01-2012 Chronic Spondylosis; intervertebral disc disorders; other back problems (1 source) Cervical spondylosis; Translations: [Other spondylosis with myelopathy, cervical region] 04-24-2024 Chronic Spondylosis; intervertebral disc disorders; other back problems (13 sources) Cervical radiculopathy; Translations: [Radiculopathy, cervical region] Onset: 05-27-2018 05-27-2018 Episodic Unclassified (12 sources) Encounter for screening for other disorder; Translations: [Electrocardiogram abnormal] Onset: 11-30-2010 11-30-2010 Episodic Unclassified (2 sources) Unknown / UNK(Unknown) Onset: 05-08-2018 Unclassified (1 source) Knee Injury / [id number]() Onset: 06-05-2018 Unclassified (1 source) Fall / [id number]() Onset: 06-05-2018 Unclassified (2 sources) Post Op Visit; Translations: [Post Op Visit] Onset: 01-03-2024 Unclassified (2 sources) Blurred Vision; Translations: [Blurred Vision] Onset: 01-03-2024 Past or Other Problems Problem Classification Problem Date Documented Date Episodic/Chronic Acute posthemorrhagic anemia (9 sources) Acute posthemorrhagic anemia; Translations: [Acute posthemorrhagic anemia] Onset: 11-04-2020 11-04-2020 Episodic Administrative/social admission (9 sources) Discharge status; Translations: [Other problems related to medical facilities and other health care] Onset: 11-01-2020 11-04-2020 Episodic Cardiac dysrhythmias (8 sources) Palpitations; Translations: [Palpitations] Onset: 11-30-2010 11-30-2010 Episodic Nonspecific chest pain (20 sources) Chest pain; Translations: [Chest pain, unspecified] Onset: 11-30-2010 Resolved: 07-09-2019 11-30-2010 Episodic Other aftercare (2 sources) Encounter for surgical aftercare following surgery on the sense organs; Translations: [Encounter for surgical aftercare following surgery on the sense organs] Onset: 01-21-2024 Episodic Other and unspecified benign neoplasm (1 source) Nevus of choroid; Translations: [Benign neoplasm of left choroid] Onset: 01-25-2015 01-25-2015 Episodic Other and unspecified benign neoplasm (9 sources) Schwannoma; Translations: [Benign neoplasm of peripheral nerves and autonomic nervous system, unspecified] Onset: 10-27-2020 11-21-2021 Episodic Other and unspecified benign neoplasm (2 sources) Benign neoplasm of left choroid; Translations: [Benign neoplasm of left choroid] Onset: 01-25-2015 Episodic Other and unspecified benign neoplasm (1 source) 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; Translations: [Schwannoma of nerve of chest] Onset: 02-24-2024 Episodic Other eye disorders (9 sources) Paralytic ptosis of right eyelid; Translations: [Paralytic ptosis] Onset: 08-24-2021 Episodic Other eye disorders (8 sources) Ptosis of eyebrow; Translations: [Brow ptosis, unspecified] Onset: 08-24-2021 08-24-2021 Episodic Other eye disorders (9 sources) Ptosis of right upper eyelid; Translations: [Unspecified ptosis of right eyelid] Onset: 11-01-2020 11-04-2020 Episodic Other female genital disorders (8 sources) Mass of vulva; Translations: [Other specified noninflammatory disorders of vulva and perineum] Onset: 06-27-2011 01-28-2022 Episodic Other lower respiratory disease (9 sources) Lung mass; Translations: [Other nonspecific abnormal finding of lung field] Onset: 02-09-2016 02-09-2016 Episodic Other lower respiratory disease (7 sources) Dyspnea; Translations: [Shortness of breath] Onset: 07-08-2019 Resolved: 07-09-2019 07-09-2019 Episodic Other nervous system disorders (9 sources) Acute postoperative pain; Translations: [Other acute postprocedural pain] Onset: 11-01-2020 11-04-2020 Episodic Other upper respiratory disease (8 sources) Hypertrophy of nasal turbinates; Translations: [Hypertrophy of nasal turbinates] Onset: 01-10-2012 01-10-2012 Episodic Other upper respiratory disease (9 sources) Congestion of nasal sinus; Translations: [Nasal congestion] Onset: 06-01-2013 06-01-2013 Episodic Unclassified (1 source) Encounter for screening for other disorder Onset: 05-08-2018 Results Test Name Value Interpretation Reference Range Facility MR Cervical spine WO contras ton 06-10-2024 IMPRESSION: Postsurgical changes from right-sided T2 dorsal decompression and T1-T3 posterior instrumented fusion for right thoracic paraspinal schwannoma resection. Focal area of T1 hypointense tissue in the lateral aspect of the right T2-T3 foramen extending to the paraspinal soft tissues, grossly similar to prior chest CT examinations, most likely reflecting postoperative change/granulation tissue. Attention on follow-up examinations recommended. Cervical spondylosis as detailed, without high-grade canal narrowing. Findings worst at C5-6, with mild canal narrowing, moderate to severe right foraminal narrowing, and moderate left foraminal narrowing. Additional moderate to severe bilateral foraminal narrowing at C4-5. No cord compression or cord signal abnormality. Additional details as above. Anatomic Variant: None. Assume 7 cervical vertebrae with counting from the craniocervical junction. Building Construction Superintendent: PSCB Transcribe Date/Time: Jun 10 2024 9:10A Dictated by : SRIDHAR SAWYER MD This examination was interpreted and the report reviewed and electronically signed by: SRIDHAR SAWYER MD on Jun 10 2024 9:27AM [facility] DIVISION OF RADIOLOGY * * *Final Report* * * DATE OF EXAM: Jun 10 2024 8:45AM [facility] [id number] - MRI CERVICAL SPINE WO IVCON / PROCEDURE REASON: Spinal stenosis of cervical region * * * * Physician Interpretation * * * * EXAMINATION: MRI CERVICAL SPINE WO IVCON CLINICAL HISTORY: Spinal stenosis of cervical region Prior right upper thoracic schwannoma resection 10/2020. Bilateral hand weakness, gait instability, hip flexor weakness, concern for cervical myelopathy. TECHNIQUE: Routine cervical spine MR protocol without gadolinium. MQ: [id number] COMPARISON: Chest CT 03/02/2024. Thoracic MRI 08/12/2020.. RESULT: Counting reference: Craniocervical junction. Anatomic Variants: None. Localizer images: No additional findings. Alignment: S-shaped scoliosis of the cervicothoracic spine, with dextrocurvature at the cervicothoracic junction, apex to the right middle ear T1, and levocurvature partially visualized in the thoracic spine, apex to the left at T7-8. Grade 1 degenerative chronic) of C4 on C5. Craniocervical junction: Craniocervical junction is normal. Cord: The visualized cord is within normal limits of signal intensity and morphology. Bone marrow signal/fracture: Postoperative changes are seen from prior right-sided dorsal decompression at T2, for prior schwannoma resection. Posterior segmented fusion T1-T3 with bilateral pedicle screws at T1 T3, left-sided pedicle screw at T2. Associated hardware artifact partially obscures evaluation in the vicinity. There is T1 hypointense soft tissue along the lateral aspect of the right T2-3 foramen extending to the right paraspinal region, which is only visualized on sagittal images, not included within the [id number] on axial images, with associated hypointense appearance on T2. This measures approximately 1.2 x 2.1 cm in the sagittal plane (oblique AP by CC, series 3, image 4). No prior postoperative MRI for comparison. However, this is grossly similar in size and configuration to CT 03/02/2024 and also dating back to 02/09/2022, within constraints of modality differences. This most likely reflects postoperative change/granulation tissue, however attention on follow-up suggested. Adjacent scarring/atelectasis in the posterior right lung apex. Chronic osseous fusion across left C3-4 facet joint. No evidence of pathologic marrow infiltration. No evidence of prior fracture. Cervical soft tissues: See above. C2-C3: Canal and foramina are patent. C3-C4: Facet and uncovertebral arthropathy, with mild bilateral foraminal narrowing, left worse than right. Canal is patent. C4-C5: Disc bulge and anterolisthesis with slight ventral thecal sac effacement and otherwise been canal. Facet and uncovertebral arthropathy, with moderate to severe bilateral foraminal narrowing. C5-C6: Disc osteophyte convex, eccentric to the right, with mild canal narrowing and slight effacement of the right ventral cord without significant compression or signal abnormality. Facet and uncovertebral arthropathy, with moderate to severe right and moderate left foraminal narrowing. C6-C7: Facet and uncovertebral arthropathy, with mild to moderate right foraminal narrowing. Canal and left foramen are patent. C7-T1: Facet and uncovertebral prominence with mild right foraminal narrowing. Canal and left foramen are patent. Partially visualized subacute changes in the upper thoracic spine, with patent appearance of the upper thoracic canal. See above regarding right T2-3 foramen. Expanded appearance of the right T1-T2 foramen. Otherwise, visualized upper thoracic canal and foramina are grossly patent. 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 Bilateral hand weakness, gait instability, hip flexor weakness, concern for cervical myelopathy. TECHNIQUE: Routine cervical spine MR protocol without gadolinium. MQ: [id number] COMPARISON: Chest CT 03/02/2024. Thoracic MRI 08/12/2020.. RESULT: Counting reference: Craniocervical junction. Anatomic Variants: None. Localizer images: No additional findings. Alignment: S-shaped scoliosis of the cervicothoracic spine, with dextrocurvature at the cervicothoracic junction, apex to the right middle ear T1, and levocurvature partially visualized in the thoracic spine, apex to the left at T7-8. Grade 1 degenerative chronic) of C4 on C5. Craniocervical junction: Craniocervical junction is normal. Cord: The visualized cord is within normal limits of signal intensity and morphology. Bone marrow signal/fracture: Postoperative changes are seen from prior right-sided dorsal decompression at T2, for prior schwannoma resection. Posterior segmented fusion T1-T3 with bilateral pedicle screws at T1 T3, left-sided pedicle screw at T2. Associated hardware artifact partially obscures evaluation in the vicinity. There is T1 hypointense soft tissue along the lateral aspect of the right T2-3 foramen extending to the right paraspinal region, which is only visualized on sagittal images, not included within the [id number] on axial images, with associated hypointense appearance on T2. This measures approximately 1.2 x 2.1 cm in the sagittal plane (oblique AP by CC, series 3, image 4). No prior postoperative MRI for comparison. However, this is grossly similar in size and configuration to CT 03/02/2024 and also dating back to 02/09/2022, within constraints of modality differences. This most likely reflects postoperative change/granulation tissue, however attention on follow-up suggested. Adjacent scarring/atelectasis in the posterior right lung apex. Chronic osseous fusion across left C3-4 facet joint. No evidence of pathologic marrow infiltration. No evidence of prior fracture. Cervical soft tissues: See above. C2-C3: Canal and foramina are patent. C3-C4: Facet and uncovertebral arthropathy, with mild bilateral foraminal narrowing, left worse than right. Canal is patent. C4-C5: Disc bulge and anterolisthesis with slight ventral thecal sac effacement and otherwise been canal. Facet and uncovertebral arthropathy, with moderate to severe bilateral foraminal narrowing. C5-C6: Disc osteophyte convex, eccentric to the right, with mild canal narrowing and slight effacement of the right ventral cord without significant compression or signal abnormality. Facet and uncovertebral arthropathy, with moderate to severe right and moderate left foraminal narrowing. C6-C7: Facet and uncovertebral arthropathy, with mild to moderate right foraminal narrowing. Canal and left foramen are patent. C7-T1: Facet and uncovertebral prominence with mild right foraminal narrowing. Canal and left foramen are patent. Partially visualized subacute changes in the upper thoracic spine, with patent appearance of the upper thoracic canal. See above regarding right T2-3 foramen. Expanded appearance of the right T1-T2 foramen. Otherwise, visualized upper thoracic canal and foramina are grossly patent. IMPRESSION IMPRESSION: Postsurgical changes from right-sided T2 dorsal decompression and T1-T3 posterior instrumented fusion for right thoracic paraspinal schwannoma resection. Focal area of T1 hypointense tissue in the lateral aspect of the right T2-T3 foramen extending to the paraspinal soft tissues, grossly similar to prior chest CT examinations, most likely reflecting postoperative change/granulation tissue. Attention on follow-up examinations recommended. Cervical spondylosis as detailed, without high-grade canal narrowing. Findings worst at C5-6, with mild canal narrowing, moderate to severe right foraminal narrowing, and moderate left foraminal narrowing. Additional moderate to severe bilateral foraminal narrowing at C4-5. No cord compression or cord signal abnormality. Additional details as above. Anatomic Variant: None. Assume 7 cervical vertebrae with counting from the craniocervical junction. Building Construction Superintendent: PATRICIA Transcribe Date/Time: Jun 10 2024 9:10A Dictated by : SRIDHAR SAWYER MD This examination was interpreted and the report reviewed and electronically signed by: SRIDHAR SAWYER MD (more content not included)... 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 Bilateral hand weakness, gait instability, hip flexor weakness, concern for cervical myelopathy. TECHNIQUE: Routine cervical spine MR protocol without gadolinium. MQ: [id number] COMPARISON: Chest CT 03/02/2024. Thoracic MRI 08/12/2020.. RESULT: Counting reference: Craniocervical junction. Anatomic Variants: None. Localizer images: No additional findings. Alignment: S-shaped scoliosis of the cervicothoracic spine, with dextrocurvature at the cervicothoracic junction, apex to the right middle ear T1, and levocurvature partially visualized in the thoracic spine, apex to the left at T7-8. Grade 1 degenerative chronic) of C4 on C5. Craniocervical junction: Craniocervical junction is normal. Cord: The visualized cord is within normal limits of signal intensity and morphology. Bone marrow signal/fracture: Postoperative changes are seen from prior right-sided dorsal decompression at T2, for prior schwannoma resection. Posterior segmented fusion T1-T3 with bilateral pedicle screws at T1 T3, left-sided pedicle screw at T2. Associated hardware artifact partially obscures evaluation in the vicinity. There is T1 hypointense soft tissue along the lateral aspect of the right T2-3 foramen extending to the right paraspinal region, which is only visualized on sagittal images, not included within the [id number] on axial images, with associated hypointense appearance on T2. This measures approximately 1.2 x 2.1 cm in the sagittal plane (oblique AP by CC, series 3, image 4). No prior postoperative MRI for comparison. However, this is grossly similar in size and configuration to CT 03/02/2024 and also dating back to 02/09/2022, within constraints of modality differences. This most likely reflects postoperative change/granulation tissue, however attention on follow-up suggested. Adjacent scarring/atelectasis in the posterior right lung apex. Chronic osseous fusion across left C3-4 facet joint. No evidence of pathologic marrow infiltration. No evidence of prior fracture. Cervical soft tissues: See above. C2-C3: Canal and foramina are patent. C3-C4: Facet and uncovertebral arthropathy, with mild bilateral foraminal narrowing, left worse than right. Canal is patent. C4-C5: Disc bulge and anterolisthesis with slight ventral thecal sac effacement and otherwise been canal. Facet and uncovertebral arthropathy, with moderate to severe bilateral foraminal narrowing. C5-C6: Disc osteophyte convex, eccentric to the right, with mild canal narrowing and slight effacement of the right ventral cord without significant compression or signal abnormality. Facet and uncovertebral arthropathy, with moderate to severe right and moderate left foraminal narrowing. C6-C7: Facet and uncovertebral arthropathy, with mild to moderate right foraminal narrowing. Canal and left foramen are patent. C7-T1: Facet and uncovertebral prominence with mild right foraminal narrowing. Canal and left foramen are patent. Partially visualized subacute changes in the upper thoracic spine, with patent appearance of the upper thoracic canal. See above regarding right T2-3 foramen. Expanded appearance of the right T1-T2 foramen. Otherwise, visualized upper thoracic canal and foramina are grossly patent. IMPRESSION: Postsurgical changes from right-sided T2 dorsal decompression and T1-T3 posterior instrumented fusion for right thoracic paraspinal schwannoma resection. Focal area of T1 hypointense tissue in the lateral aspect of the right T2-T3 foramen extending to the paraspinal soft tissues, grossly similar to prior chest CT examinations, most likely reflecting postoperative change/granulation tissue. Attention on follow-up examinations recommended. Cervical spondylosis as detailed, without high-grade canal narrowing. Findings worst at C5-6, with mild canal narrowing, moderate to severe right foraminal narrowing, and moderate left foraminal narrowing. Additional moderate to severe bilateral foraminal narrowing at C4-5. No cord compression or cord signal abnormality. Additional details as above. Anatomic Variant: None. Assume 7 cervical vertebrae with counting from the craniocervical junction. Building Construction Superintendent: [facility] HOSPITAL[facility]uela Transcribe Date/Time: Jun 10 2024 9:10A Dictated by : SRIHDAR SAWYER MD This examination was interpreted and the report reviewed and electronically signed by: SRIDHAR SAWYER MD on Jun 10 2024 9:27AM EST [id number] Normal [facility] Eye - left US 2Don [facility] FUNDUS PHOTOGRAPHY-OUon 03-26 [facility] No Panel Informationon 04-21 Radiology Study observation (narrative) [facility] OCT/HRT [facility] CNOV Office Visit (GILLIAN ) HEIDI MTZ ([id number]) 1945 F Date Time Provider Department 04/09/24 10:00 AM CHARLES PATHAK During your visit today, we recorded the following information about you: Temperature Pulse Blood pressure Weight 97.7 degrees 62/minute 188/78 43.5 kg Height 1.543 m Charles Pathak MD 04/10/2024 10:49 AM Signed COLORECTAL SURGERY New Patient Visit April 09, 2024 New Pt former Pt DX: Surgery/Procedure 08/24/20 Colonoscopy Findings: The digital rectal examinations via stoma but able to accomodate small finger. No stricture at stoma. There was evidence of a prior surgical anastomosis in the ascending colon. The anastomosis was traversed. Biopsies were taken with a cold forceps for histology. The terminal ileum appeared normal. Impression: - Several sharp angulations in colon but no strictures. Likley related to adhesions in the pelvis. - Surgical anastomosis with some eythema. Biopsied. - The examined portion of the ileum was normal. Clinical Notes 07/18/20 Office Visit Chief Complaint: Establish follow up History of Present Illness: Heidi Mtz is a 74 year old year old female with h/o rectal cancer, s/p FEB 1997, then in 1997 underwent an exlap for EDUIN for recurrent small bowel obstruction and placement of a g-tube, and in 05/1998 went back to OR at which time she got strictureplasties. Since that time, Her last colonoscopy in [address] Dave and no polyps were found. Has chronic bowel obstructions, last hospitalized about 5 years ago in [place]. However in the last 2 months, she feels like she's had 3 obstructions with crampy pain, nausea and vomiting and decreased ostomy output. She resolves this herself by making herself nothing by mouth and will take a laxative and that will usually resolve it usually in a day or 2. On average she thinks she has 5 episodes of bowel obstructions a year. She is mainly here to establish care as Dr. Dave is no longer available especially because she requires anesthesia for her colonoscopies Assessment and Plan: Heidi Mtz is a 74 year old female with history of rectal cancer s/p APR in 1996 and recurrent bowel obstructions previous underwent 2 exlaps during which time she got stricturplasties. She's here to establish care for her surveillance colonoscopies as she requires anesthesia for them. She has recurrent bowel obstructions but they have always resolved on their own. - Will refer her to Dr. Hardy for colonoscopy under [place] IMPRESSION: Heidi Mtz is a 74 year old s/p remote APR / adjuvant XRT now with recurrent psbo - manages conservatively. Here to establish care and arrange colostomy. PLAN: will refer to Dr. Vilchis for colonoscopy under [place] with a peds scope. 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 She states that she feels that she gets obstructed once in a month or every other month, she did not need to be hospitalized for these episodes, after she vomits the symptoms resolve in 1-2 days, ostomy working well now, today denies any obstructive symptoms Never been in the hospital for this. Stops eating and it goes away. She will throw up and then intestines start working. Tries to avoid heavy eating or rice, beef or other roughage or dry foods Assessment 71 year old female with h/o rectal cancer, s/p FEB 1997, lat colonoscopy in 2012 RECOMMENDATION 71yo F s/p APER for rectal cancer for colonoscopy in OR due to tortuous colon ET care Chief Complaint: chronic SBOs History of Present Illness: Heidi Mtz is a 78 year old year old female with complex history as above including APR for rectal cancer and recurrent SBOs requiring surgical and endoscopic interventions. Since 2019 she's been doing ok, but has had some obstructive episodes that she self manages. She can feel an obstruction starting and then self-regulates with decreased PO intake, and milk of mag and dulcolax. These types of episodes have happened 3-5 times a year. Otherwise she eats well with regular stoma output and her weight is stable. The stoma is patent and working but she feels it's looking wrinkly. However it is still protruding and productive. No bagging issues. 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 Normal [facility] HISTORY PHYSICALon HISTORY PHYSICAL HNO ID: [id number] Author: CHARLES PATHAK MD Service: ? Author Type: Physician Type: H&P Filed: 04/10/2024 10:49 Note Text: COLORECTAL SURGERY New Patient Visit April 09, 2024 New Pt former Pt DX: Surgery/Procedure 08/24/20 Colonoscopy Findings: The digital rectal examinations via stoma but able to accomodate small finger. No stricture at stoma. There was evidence of a prior surgical anastomosis in the ascending colon. The anastomosis was traversed. Biopsies were taken with a cold forceps for histology. The terminal ileum appeared normal. Impression: - Several sharp angulations in colon but no strictures. Likley related to adhesions in the pelvis. - Surgical anastomosis with some eythema. Biopsied. - The examined portion of the ileum was normal. Clinical Notes 07/18/20 Office Visit Chief Complaint: Establish follow up History of Present Illness: Heidi Mtz is a 74 year old year old female with h/o rectal cancer, s/p FEB 1997, then in 1997 underwent an exlap for EDUIN for recurrent small bowel obstruction and placement of a g-tube, and in 05/1998 went back to OR at which time she got strictureplasties. Since that time, Her last colonoscopy in [address] Dave and no polyps were found. Has chronic bowel obstructions, last hospitalized about 5 years ago in [place]. However in the last 2 months, she feels like she's had 3 obstructions with crampy pain, nausea and vomiting and decreased ostomy output. She resolves this herself by making herself nothing by mouth and will take a laxative and that will usually resolve it usually in a day or 2. On average she thinks she has 5 episodes of bowel obstructions a year. She is mainly here to establish care as Dr. Dave is no longer available especially because she requires anesthesia for her colonoscopies Assessment and Plan: Heidi Mtz is a 74 year old female with history of rectal cancer s/p APR in 1996 and recurrent bowel obstructions previous underwent 2 exlaps during which time she got stricturplasties. She's here to establish care for her surveillance colonoscopies as she requires anesthesia for them. She has recurrent bowel obstructions but they have always resolved on their own. - Will refer her to Dr. Hardy for colonoscopy under [place] IMPRESSION: Heidi Mtz is a 74 year old s/p remote APR / adjuvant XRT now with recurrent psbo - manages conservatively. Here to establish care and arrange colostomy. PLAN: will refer to Dr. Vilchis for colonoscopy under [place] with a peds scope. 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 She states that she feels that she gets obstructed once in a month or every other month, she did not need to be hospitalized for these episodes, after she vomits the symptoms resolve in 1-2 days, ostomy working well now, today denies any obstructive symptoms Never been in the hospital for this. Stops eating and it goes away. She will throw up and then intestines start working. Tries to avoid heavy eating or rice, beef or other roughage or dry foods Assessment 71 year old female with h/o rectal cancer, s/p FEB 1997, lat colonoscopy in 2013 RECOMMENDATION 71yo F s/p APER for rectal cancer for colonoscopy in OR due to tortuous colon ET care Chief Complaint: chronic SBOs History of Present Illness: Heidi Mtz is a 78 year old year old female with complex history as above including APR for rectal cancer and recurrent SBOs requiring surgical and endoscopic interventions. Since 2019 she's been doing ok, but has had some obstructive episodes that she self manages. She can feel an obstruction starting and then self-regulates with decreased PO intake, and milk of mag and dulcolax. These types of episodes have happened 3-5 times a year. Otherwise she eats well with regular stoma output and her weight is stable. The stoma is patent and working but she feels it's looking wrinkly. However it is still protruding and productive. No bagging issues. 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 Normal [facility] MAMMO SCREENING WITH SHARONDA BI LATERALon 03-04-2024 MAMMO SCREENING WITH SHARONDA BILATERAL EXAM: MAMMO SCREENING WITH SHARONDA BILATERAL, 03/03/2024 15:57 PM CLINICAL INDICATIONS: Screening COMPARISON: Screening mammogram 02/14/2023, 11/30/2021, 04/19/2020. TECHNIQUE: 3-D MLO and CC digital tomosynthesis images were obtained of the bilateral breasts. Synthetic 2-D images were generated from the tomosynthesis data. Computer aided detection was utilized. FINDINGS: Breast Density: The breasts are heterogeneously dense, which may obscure small masses. Bilateral benign appearing calcifications are noted. There are no suspicious masses, calcifications, or architectural distortions. IMPRESSION: No mammographic evidence of malignancy. BI-RADS: 2: Benign Recommendation: Routine mammography. Recommendation Laterality: Bilateral The current National [employer] Network and [place] [employer] guidelines recommend women undergo a screening mammogram every year over the age of 40 and continue mammographic screening as long as they are in good health. Screening mammography under age 40 may occur for women who are at increased risk for breast cancer. I personally viewed and interpreted these images and I have reviewed and approved this report. Table formatting from the original result was not included. MAMMO STANDARD RISK Normal [facility] CT CHEST W IVCONon CT CHEST W IVCON * * *Final Report* * * DATE OF EXAM: Mar 02 2024 11:46AM [facility] [id number] - CT CHEST W IVCON / PROCEDURE REASON: Schwannoma of nerve of chest * * * * Physician Interpretation * * * * EXAMINATION: CHEST CT WITH CONTRAST CLINICAL HISTORY: Schwannoma of chest. Technique: Spiral CT acquisition of the chest from the thoracic inlet to the upper abdomen following IV contrast. MQ: [id number] Contrast: 50 mL Omnipaque [address] Radiation dose: Integrated Dose-length product (DLP) for this visit = 111 mGy*cm CT Dose Reduction Employed: Automated exposure control(AEC) and iterative recon Comparison: 11/29/2023 RESULT: Limitations: None. Lines, tubes, and devices: None. Lung parenchyma and airways: Evaluation of lung parenchyma demonstrates biapical fibrosis, not significantly changed. The previously noted 4 mm nodule in the posterior medial left lower lobe has resolved. There has been interval development of a subtle groundglass infiltrate in the superior segment of the right lower lobe as seen on image 74. No new nodule is identified. No bronchiectasis is present. Pleural space: No pleural effusion. No pleural thickening. Lower neck, lymph nodes, and mediastinum: The imaged thyroid gland is normal. No lymphadenopathy in the supraclavicular, axillary, mediastinal, or hilar regions. Heart, pericardium, and thoracic vessels: The thoracic aorta and main pulmonary artery are normal in caliber. The cardiac chambers are normal in size. No coronary artery atherosclerotic calcifications are noted, although the study is not optimized for coronary assessment. No pericardial effusion or thickening. Bones and soft tissues: No destructive bone lesion. Chest wall is unremarkable. Upper abdomen: No abnormality in the imaged upper abdomen. Localizer images: No additional findings. IMPRESSION: 1. Resolution of the previously noted 4 mm nodule in the posterior medial left lower lobe. 2. Interval development of a subtle groundglass opacity in the superior segment of the right lower lobe possibly in the setting of an infectious/inflammatory process. This is amenable to follow-up. Building Construction Superintendent: AR[facility] WAY HOSPITALManuela Transcribe Date/Time: Mar 06 2024 8:35A Dictated by : VENECIA BARRY MD This examination was interpreted and the report reviewed and electronically signed by: VENECIA BARRY MD on Mar 06 2024 8:42AM EST [id number] Normal [facility] CREATININE [facility] 02-24-2024 Creatinine [Mass/Vol] 0.75 mg/dL Normal 0.58-0.96 [facility] Comment on above: Order Comment: Speci men Type: BLOOD SPECIMEN Ordering Facility: [facility] Address: [address] [place] [address] Performed By: #### C RET1 #### [facility] CLIA [id number] [address] [place] [address] [place] [address] [place] Creatinine and Glomerular filtration rate.predicted panel (S/P/Bld) 81 mL/min/1.73m??? Normal >=60 [facility] Comment on above: Order Comment: Ana Paula kan Type: BLOOD SPECIMEN Ordering Facility: [facility] Address: [address] [place] [address] Result Comment: Gissell mated Glomerular Filtration Rate (eGFR) is calculated using the 2020 CKD-EPI creatinine equation. This equation utilizes serum creatinine, sex, and age as parameters. The creatinine assay has traceable calibration to isotope dilution-mass spectrometry. Refer to KDIGO guidelines for clinical interpretation. In patients with unstable renal function, e.g. those with acute kidney injury, the eGFR may not accurately reflect actual GFR. Performed By: #### C RET1 #### [facility] CLIA [id number] [address] [place] [address] OF [facility] Mitch 02-20-2024 CNPN Telephone (HVICTR) HEIDI MTZ ([id number]) 1945 F Date Time Provider Department 02/20/24 BRANDEE FELIZ LICHA During your visit today, we recorded the following information about you: Vini Valdivia I, RN 02/20/2024 9:38 AM Signed [facility] Phone Encounter DATE of SERVICE: 02/20/2024 TIME of SERVICE: 9:33 AM Status: Non-urgent, needs attention Service/Provider: Thoracic Surgery Brandee Feliz M.D. Reason for call: Other Issue Contact information: [phone] Resolution: Sent to [facility] Comments: Pt calling in. States she is scheduled to have CT w/contrast on March 02. Typically she has creatinine level drawn prior to testing. Asking that if this needs to be done, can an order be placed and she will have drawn at [facility] location in [place]. Please notify. Thank you, Vini Valdivia RN [facility] Resource Nurse Date of Resolution: 02/20/2024 Time of Resolution 9:33 AM Allergies As of Date: 02/20/2024 Noted Allergy Reaction DOXYCYCLINE 07/18/2020 8 - GI Upset Comments: pt states GI system shut down LEVAQUIN (LEVOFLOXACIN) 02/09/2016 5 - Intolerance Comments: Joint/muscle pain LISINOPRIL 10/27/2020 7 - Swelling Comments: Swelling in legs MUPIROCIN 10/07/2020 14 - Other: See Comments Comments: Skin irritation. Allergy confirmed by testing. NEOSPORIN ([id number]* 14 - Other: See Comments Comments: Skin reaction. Allergy confirmed by testing. NORVASC (AMLODIPINE BESYLATE) 02/09/2016 7 - Swelling Comments: Lower extremity swelling PENICILLINS 08/20/2003 2 - Rash TRAMADOL 11/11/2020 1 - Mental Status Change ZANTAC (RANITIDINE HCL) 05/29/2017 14 - Other: See Comments Comments: Dizziness Date Reviewed: 12/03/2023 Reviewed by: Dari Youngblood MA - Fully Assessed Reason for Visit: Post Dc Program Call - Needs Attn [[id number]] Prescriptions as of 02/20/2024 - sulfamethoxazole-trimethopr im (BACTRIM DS,SEPTRA DS) 800-160 mg per tablet Take 1 tablet by mouth twice daily. - predniSONE (DELTASONE) 10 mg tablet 10 mg. - magnesium hydroxide (MOM) 400 mg/5 mL suspension Take 30 mL by mouth once daily as needed for Constipation. - hydroCHLOROthiazide (HYDRODIURIL, ESIDRIX) 25 mg tablet Take 12.5-25 mg by mouth once daily. - acetaminophen (TYLENOL EXTRA STRENGTH) 500 mg tablet Take 500 mg by mouth every 8 hours as needed for Pain. - cyanocobalamin (VITAMIN B-12) 1,000 mcg tab Take 1,000 mcg by mouth once daily. - Cholecalciferol, Vitamin D3, 1,000 unit cap Take 1,000 Units by mouth once daily. - diphenhydrAMINE (BENADRYL) 25 mg tablet Take 25 mg by mouth every 6 hours as needed for Itching/Rash. - fluticasone (FLONASE) 50 mcg/actuation nasal spray Use 2 Sprays in each nostril once daily as needed for Cold/Allergy Symptoms. - Docusate Sodium 100 mg Tab Take 2 tablets by mouth once daily. - CALCIUM CARBONATE (TUMS ORAL) Take 1 tablet by mouth as needed (GERD). - MULTIVITAMIN TABLET Take one(1) tablet daily. Meds Comments as of 12/07/2020: 12/07/20 No severe interactions noted at time of Discharge Problem List As Of Date 02/20/2024 Noted Resolved PERS HX RECTAL AND ANAL MALIGN [Z85.048] 05/13/2009 Sinus congestion [R09.81] 06/01/2013 GERD (gastroesophageal reflux disease) [K21.9] 06/01/2013 Essential hypertension [I10] 06/01/2013 Mass of right lung [R91.8] 02/09/2016 Radiculopathy, cervical region [M54.12] 05/27/2018 Other chest pain [R07.89] 07/08/2019 07/09/2019 SOB (shortness of breath) [R06.02] 07/08/2019 07/09/2019 Chest pain [R07.9] 07/08/2019 07/09/2019 PFO (patent foramen ovale) [Q21.12] 10/09/2020 History of rectal cancer [Z85.048] Schwannoma [D36.10] 10/27/2020 Pain, postoperative, acute [G89.18] 11/01/2020 Discharge planning issues [Z02.9] 11/01/2020 Ptosis of right eyelid [H02.401] 11/01/2020 Acute blood loss anemia [D62] 11/04/2020 Encounter Status:Closed by VINI DOSHI I on 02/20/24 Normal [facility] FUNDUS PHOTOGRAPHY-OU*on FUNDUS PHOTOGRAPHY-OU* Right Eye Floaters. Disc findings include increased cup to disc ratio. Vessel findings include normal. Macula findings include normal observations. Normal. Interval change is same. Recommendation for management is to observe. Left Eye Clear. Disc findings include normal observations. Vessel findings include normal. Macula findings include normal observations. Normal. Interval change is same. Recommendation for management is to observe. Normal [facility] Right Eye Floaters. Disc findings include increased cup to disc ratio. Vessel findings include normal. Macula findings include normal observations. Normal. Interval change is same. Recommendation for management is to observe. Left Eye Clear. Disc findings include normal observations. Vessel findings include normal. Macula findings include normal observations. Normal. Interval change is same. Recommendation for management is to observe. ORDEROUT [facility] FUNDUS PHOTOGRAPHY-OU*on Radiology Study observation (narrative) [facility] OCT/HRT MACULA OU*on 024 OCT/HRT MACULA OU* Right Eye Quality was good. Findings include inner retinal layer disruption. Interval change is same. Recommendation for management is to observe. Left Eye Quality was good. Findings include normal observations. Interval change is same. Recommendation for management is to observe. Normal [facility] Right Eye Quality was good. Findings include inner retinal layer disruption. Interval change is same. Recommendation for management is to observe. Left Eye Quality was good. Findings include normal observations. Interval change is same. Recommendation for management is to observe. RADIOLOGY [facility] Radiology Study observation (narrative) [facility] FUNDUS PHOTOGRAPHY-OU*on FUNDUS PHOTOGRAPHY-OU* Right Eye Floaters. Disc findings include increased cup to disc ratio. Vessel findings include normal. Macula findings include normal observations. Normal. Interval change is same. Recommendation for management is to observe. Left Eye Clear. Disc findings include normal observations. Vessel findings include normal. Macula findings include normal observations. Normal. Interval change is same. Recommendation for management is to observe. Normal [facility] Right Eye Floaters. Disc findings include increased cup to disc ratio. Vessel findings include normal. Macula findings include normal observations. Normal. Interval change is same. Recommendation for management is to observe. Left Eye Clear. Disc findings include normal observations. Vessel findings include normal. Macula findings include normal observations. Normal. Interval change is same. Recommendation for management is to observe. ORDEROUT [facility] Radiology Study observation (narrative) [facility] HVF 30-2 FAST - OUon 024 HVF 30-2 FAST - OU Baseline, Good Quali ty, Decreased temporal sensitivity Right Eye - decreased central sensitivity Left Eye Normal [facility] OCT/HRT MACULA OUon 01-03-20 24 OCT/HRT MACULA OU Right Eye Quality was good. Findings include thickening without cystic edema. Interval change is same. Recommendation for management is to observe. Left Eye Quality was good. Findings include normal observations. Interval change is same. Recommendation for management is to observe. Normal [facility] Right Eye Quality was good. Findings include thickening without cystic edema. Interval change is same. Recommendation for management is to observe. Left Eye Quality was good. Findings include normal observations. Interval change is same. Recommendation for management is to observe. RADIOLOGY [facility] Radiology Study observation (narrative) [facility] Perimetry studyon 01-03-2024 Baseline, Good Quali ty, Decreased temporal sensitivity Right Eye - decreased central sensitivity Left Eye RADIOLOGY [facility] Radiology [facility] (narrative) [facility] Office Visit (ALBERT ) HEIDI MTZ ([id number]) 1945 F Date Time Provider Department 12/03/23 11:30 AM UZMA HOLGUIN During your visit today, we recorded the following information about you: Pulse Respiration Blood pressure Weight 66/minute 14/minute 167/88 44 kg Height 1.448 m Uzma Holguin APRN.PIANO REGULATOR 12/03/2023 4:02 PM Signed Part of this note was copied from previous note, all content has been individually reviewed, updated as necessary, and thoroughly reviewed. [facility] - OUTPATIENT THORACIC SURGERY CLINIC NOTE PT NAME: Heidi Mtz [facility] NO: [id number] THORACIC SURGEON: Brandee Feliz M.D. DATE OF SERVICE: 12/03/2023 PRINCIPAL DX: Schwannoma SURGICAL HX: 10/27/2020: JASON- Neurosurg T1-T3 posterior segmental instrumentation ([place]), T1-T3 posterolateral arthrodesis with local bone autograft, T1, T2, T3 right-sided costotransversectomy and extracavitary approach for resection and separation of spinal/paraspinal mass, use of operating microscope, use of intraoperative navigation, use of intraoperative neuromonitoring. 10/31/2020: Robotic-assisted resection of superior sulcus/thoracic inlet mass with mediastinum. Surgical Pathology: FINAL DIAGNOSIS 1. Mediastinal mass with superior and inferior margins, excisions (A-C) - Schwannoma. - Resection margins are negative for tumor. 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 Feliz on 10/31/20. First incidental discovered paraspinal mass with no symptoms. Met with thoracic surgery, decision made to observe. Over time, developed numbness in R arm, SOB, and back pain. Imaging with interval growth. Pain with staged/combined resection with neurosurgery. On 10/27/20, underwent T1-T4 posterior instrumented fusion, allograft. T2 laminectomy with pedicle takedown and separation of tumor with Dr Soto. On 10/31/2020 Dr Feliz performed a Robotic-assisted resection of superior sulcus/thoracic inlet mass with mediastinum. BP 167/88 Pulse 66 Resp 14 Ht 144.8 cm (4' 9 ) Wt 44 kg (97 lb) SpO2 95% BMI 20.99 kg/m? GENERAL no acute distress alert and oriented x3 HEENT normocephalic, head midline, oral mucous membranes moist HEART regular rate and rhythm S1-S2 normal, no murmur LUNGS clear to auscultation bilaterally, no rhonchi rales or wheezing ABDOMEN soft nontender, nondistended. Bowel sounds active x 4 quadrants EXTREMITIES no clubbing, cyanosis or edema MUSCULOSKELETAL gait within normal limits SKIN no rashes or petechiae IMAGING/TESTS: CT Chest 12/03/2023: IMPRESSION: Right upper paravertebral postoperative changes with no compelling CT evidence of recurrence. Left lower lobe new small nodular opacity, nonspecific, likely benign and to be assessed on follow up exam. INTERVAL HISTORY: Ms Mtz returns to clinic today following CT scan of the chest. She states that over the last few months she has been more fatigued. She had COVID in July, but feels this has been going on longer than the covid. Also has some tingling in her hands and sometimes in her feet. Has not had a follow up with Dr Overton in some time. Will get her back to see him. Weight is stable, but finds it difficult to gain. CT scan shows no evidence of new or recurrent disease. New small left lower lobe lung nodule noted which is most likely benign. Will repeat a CT scan in 3 months in [place] and follow up with a virtual visit. If the nodule has cleared, will then follow with next scan in 2 years. IMPRESSION: 77 year old female s/p Robotic-assisted resection of superior sulcus/thoracic inlet mass with mediastinum 10/31/[address] Feliz for schwannoma. New small LLL nodule PLAN: - CT chest in 3 months at [place], VV next day - f/u with dr Carmel Holguin, ANDROID IOS DEVELOPER.PIANO REGULATOR Referring Provider: UZMA HOLGUIN [[id number]] Allergies As of Date: 12/03/2023 Noted Allergy Reaction DOXYCYCLINE 07/18/2020 8 - GI Upset Comments: pt states GI system shut down LEVAQUIN (LEVOFLOXACIN) 02/09/2016 5 - Intolerance Comments: Joint/muscle pain LISINOPRIL 10/27/2020 7 - Swelling Comments: Swelling in legs MUPIROCIN 10/07/2020 14 - Other: See Comments Comments: Skin irritation. Allergy confirmed by testing. NEOSPORIN ([id number]* 14 - Other: See Comments Comments: Skin reaction. Allergy confirmed by testing. NORVASC (AMLODIPINE BESYLATE) 02/09/2016 7 - Swelling Comments: Lower extremity swelling PENICILLINS 08/20/2003 2 - Rash TRAMADOL 11/11/2020 1 - Mental Status Change ZANTAC (RANITIDINE HCL) 05/29/2017 14 - Other: See Comments Comments: Dizziness Date Reviewed: 12/03/2023 Reviewed by: Dari Youngblood MA - Full (more content not included)... Normal [facility] CT CHEST W IVCONon 4 CT CHEST W IVCON * * *Final Report* * * DATE OF EXAM: Nov 29 2023 9:39AM [facility] 0539 - CT CHEST W IVCON / PROCEDURE REASON: Schwannoma of nerve of chest * * * * Physician Interpretation * * * * EXAMINATION: CHEST CT WITH CONTRAST CLINICAL HISTORY: History of thoracic inlet schwannoma status post resection in 2019. Technique: Spiral CT acquisition of the chest from the thoracic inlet to the upper abdomen following IV contrast. MQ: [id number]_6 Contrast: 50 mL Omnipaque [address] Radiation dose: Integrated Dose-length product (DLP) for this visit = 114 mGy*cm CT Dose Reduction Employed: Automated exposure control(AEC) and iterative recon Comparison: Chest CT 02/09/2022, 11/10/2021, 10/07/2020, 07/08/2019 RESULT: Limitations: None. Lines, tubes, and devices: None. Lung parenchyma and airways: Patent central airways. Biapical scarring with nodular opacities, unchanged. Scattered linear scarring. Mild lingular and middle lobe cylindrical bronchiectasis with small mucous plugs. - New left basilar centrilobular 4 mm nodular opacity, nonspecific and likely benign, image 161. - No enlarging or suspicious nodule Pleural space: No effusion or nodular thickening Lower neck, lymph nodes, and mediastinum: Stable small thyroid nodule. No enlarged lymph nodes Heart, pericardium, and thoracic vessels: Normal heart size. Mild coronary calcification. No central PE. Normal pericardium Bones and soft tissues: Stable right upper thoracic paravertebral postsurgical changes with no discrete nodule or nodular thickening. Decreased bone density. Mild scoliosis. Upper thoracic spinal fusion. Upper abdomen: Right renal cyst. Transfer And Line Up Worker (topogram) images: No additional findings. IMPRESSION: Right upper paravertebral postoperative changes with no compelling CT evidence of recurrence. Left lower lobe new small nodular opacity, nonspecific, likely benign and to be assessed on follow up exam. Building Construction Superintendent: PATRICIA Transcribe Date/Time: Nov 29 2023 12:00P Dictated by : RIO CASILLAS MD This examination was interpreted and the report reviewed and electronically signed by: JULIO CONWAY MD on Nov 29 2023 2:06PM EST [id number] Normal [facility] CREATININE BLDon 11-19-2023 Creatinine [Mass/Vol] 0.88 mg/dL Normal 0.58-0.96 [facility] Comment on above: Order Comment: Speci men Type: BLOOD SPECIMENOrdering Facility: [facility] Address: [address] [place] [address] Performed By: #### C RET1 ####[facility] [id number] [place] [address] [place] Creatinine and Glomerular filtration rate.predicted panel (S/P/Bld) 67 mL/min/1.73m??? Normal >=60 [facility] Comment on above: Order Comment: Speci men Type: BLOOD SPECIMENOrdering Facility: [facility] Address: [place] [id number] Result Comment: Gissell mated Glomerular Filtration Rate (eGFR) is calculated using the 2020 CKD-EPI creatinine equation. This equation utilizes serum creatinine, sex, and age as parameters. The creatinine assay has traceable calibration to isotope dilution-mass spectrometry. Refer to KDIGO guidelines for clinical interpretation. In patients with unstable renal function, e.g. those with acute kidney injury, the eGFR may not accurately reflect actual GFR. Performed By: #### C RET1 ####[facility] [id number] [address] [place] Mitch 11-15-2023 CNPN Telephone (ALBERT) HEIDI MTZ ([id number]) 1945 F Date Time Provider Department 11/15/23 BRANDEE FELIZ During your visit today, we recorded the following information about you: Denice Venegas 11/15/2023 12:31 PM Signed Received call from pt stating she was suppose to have a f/u visit with CT scan 11/16 she has not heard from anyone to schedule her. Pt's last office visit note states f/u 11/16 CT Chest and f/u with ENT Pt was informed, nurse will put in orders and scheduling will call pt to schedule. Denice Venegas, loan administrator [place] Aburto RN 11/15/2023 2:06 PM Signed per last OPD appt 01/2022 PIANO REGULATOR Season IMPRESSION: 76 year old female s/p Robotic-assisted resection of superior sulcus/thoracic inlet mass with mediastinum 10/31/[address] Feliz for schwannoma. PLAN: - Return in October of [address] Chest [place] Aburto RN 11/15/2023 2:06 PM Signed Addended by: INDIA ABURTO on: 11/15/2023 02:06 PM Modules accepted: Orders Shonna Rodrigez 11/21/2023 12:30 PM Signed Patient was contacted and scheduled for f/u per [place]'s tele Allergies As of Date: 11/15/2023 Noted Allergy Reaction DOXYCYCLINE 07/18/2020 8 - GI Upset Comments: pt states GI system shut down LEVAQUIN (LEVOFLOXACIN) 02/09/2016 5 - Intolerance Comments: Joint/muscle pain LISINOPRIL 10/27/2020 7 - Swelling Comments: Swelling in legs MUPIROCIN 10/07/2020 14 - Other: See Comments Comments: Skin irritation. Allergy confirmed by testing. NEOSPORIN ([id number]* 14 - Other: See Comments Comments: Skin reaction. Allergy confirmed by testing. 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 Discontinue saline lock post exam. If Pt. has a central line or IVAD, may access for administration according to line specific nursing protocol. Once exam is complete flush line and de-access according to line specific nursing protocol in the CT contrast administration guidelines link.Disp: 1 EachRfl: 0 CREATININE BLD [SQCRET] Order #: [id number] FUTURE Prescriptions as of 11/21/2023 - sulfamethoxazole-trimethopr im (BACTRIM DS,SEPTRA DS) 800-160 mg per tablet Take 1 tablet by mouth twice daily. - predniSONE (DELTASONE) 10 mg tablet 10 mg. - magnesium hydroxide (MOM) 400 mg/5 mL suspension Take 30 mL by mouth once daily as needed for Constipation. - hydroCHLOROthiazide (HYDRODIURIL, ESIDRIX) 25 mg tablet Take 12.5-25 mg by mouth once daily. - acetaminophen (TYLENOL EXTRA STRENGTH) 500 mg tablet Take 500 mg by mouth every 8 hours as needed for Pain. - cyanocobalamin (VITAMIN B-12) 1,000 mcg tab Take 1,000 mcg by mouth once daily. - Cholecalciferol, Vitamin D3, 1,000 unit cap Take 1,000 Units by mouth once daily. - diphenhydrAMINE (BENADRYL) 25 mg tablet Take 25 mg by mouth every 6 hours as needed for Itching/Rash. - fluticasone (FLONASE) 50 mcg/actuation nasal spray Use 2 Sprays in each nostril once daily as needed for Cold/Allergy Symptoms. - Docusate Sodium 100 mg Tab Take 2 tablets by mouth once daily. - CALCIUM CARBONATE (TUMS ORAL) Take 1 tablet by mouth as needed (GERD). - MULTIVITAMIN TABLET Take one(1) tablet daily. Meds Comments as of 12/07/2020: 12/07/20 No severe interactions noted at time of Discharge Problem List As Of Date 11/15/2023 Noted Resolved PERS HX RECTAL AND ANAL MALIGN [Z85.048] 05/13/2009 Sinus congestion [R09.81] 06/01/2013 GERD (gastroesophageal reflux disease) [K21.9] 06/01/2013 Essential hypertension [I10] 06/01/2013 Mass of right lung [R91.8] 02/09/2016 Radiculopathy, cervical region [M54.12] 05/27/2018 Other chest pain [R07.89] 07/08/2019 07/09/2019 SOB (shortness of breath) [R06.02] 07/08/2019 07/09/2019 Chest pain [R07.9] 07/08/2019 07/09/2019 PFO (patent foramen ovale) [Q21.12] 10/09/2020 History of rectal cancer [Z85.048] Schwannoma [D36.10] 10/27/2020 Pain, postoperative, acute [G89.18] 11/01/2020 Discharge planning issues [Z02.9] 11/01/2020 Ptosis of right eyelid [H02.401] 11/01/2020 Acute blood loss anemia [D62] 11/04/2020 Prescriptions ordered this encounter Disp Refills Start End IV CONTRAST (RADIOLOGY [place] (more content not included)... Normal [facility] CORNEAL TOPOGRAPHY OU*on Baseline, Good Quali ty, Moderate/Minimal Astigmatism RADIOLOGY [facility] CORNEAL TOPOGRAPHY-OUon 08-26 CORNEAL TOPOGRAPHY-OU Baseline, Good Quality, Moderate/Minimal Astigmatism Normal [facility] FUNDUS PHOTOGRAPHY-OUon 08-26 FUNDUS PHOTOGRAPHY-OU Right Eye Hazy. Disc findings include normal observations. Vessel findings include normal. Macula findings include RPE mottling. Interval change is same. Recommendation for management is to observe. Left Eye Soliz ring. Disc findings include normal observations. Vessel findings include normal. Macula findings include nevus, RPE mottling. Nevus. Interval change is same. Recommendation for management is to observe. Normal [facility] Right Eye Hazy. Disc findings include normal observations. Vessel findings include normal. Macula findings include RPE mottling. Interval change is same. Recommendation for management is to observe. Left Eye Soliz ring. Disc findings include normal observations. Vessel findings include normal. Macula findings include nevus, RPE mottling. Nevus. Interval change is same. Recommendation for management is to observe. RADIOLOGY [facility] IOL MASTER OUon 09-21-2023 IOL MASTER OU [id number] 19.50 Diopter (-2.72) Left Eye Normal [facility] [id number] 19.50 Diopter (-2.72) Left Eye RADIOLOGY [facility] OCT/HRT MACULA OUon 09-21-20 [facility] No Panel Informationon 09-20 Radiology Study observation (narrative) [facility] Eye - left US 2Don Ultrasound findings were a mass Notes Transverse: 2.46 mm Ht: 0.97 mm Longitudinal: 2.80 mm Ht: 0.75 mm [facility]ative[facility] FUNDUS PHOTOGRAPHY-OUon 03- Right Eye Clear. Disc findings include normal observations. Vessel findings include normal. Macula findings include normal observations. Interval change is same. Recommendation for management is to observe. Left Eye Clear. Disc findings include normal observations. Vessel findings include normal. Macula findings include nevus. Nevus. Interval change is same. Recommendation for management is to observe. [facility] Study [facility] (narrative) [facility] OCT/HRT MACULA OUon 02-15-20 Right Eye Central subfield thickness is 350. Quality was good. Findings include thickening without cystic edema. Interval change is same. Recommendation for management is to observe. Left Eye Central subfield thickness is 267. Quality was good. Findings include normal observations. Interval change is same. Recommendation for management is to observe. [facility] (narrative) [facility] .GFRon 04-13-2022 GFR 97 ml/min/1.73sqm Normal [facility] ([place]) Comment on above: Result Comment: GFR Population mean for , Non- Americans Ages 20-29 = 116 mL/min/1.73 sq.m. Ages 30-39 = 107 mL/min/1.73 sq.m. Ages 40-49 = 99 mL/min/1.73 sq.m. Ages 50-59 = 93 mL/min/1.73 sq.m. Ages 60-69 = 85 mL/min/1.73 sq.m. Ages 70+ = 75 mL/min/1.73 sq.m. Chronic Kidney Disease: Less than 60 mL/min/1.73 square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 HISTORYNo family history on file.SOCIAL HISTORYSocial HistorySocial History -Marital status:MarriedSpouse name:N/A -Number of children:N/A -Years of education:N/ASocial History Main Topics -Smoking status:Never Smoker -Smokeless tobacco:Never Used -Alcohol useYesComment: occ -Drug use:No -Sexual activity:Not AskedOther TopicsConcern -NoneSocial History Narrative -NoneSURGICAL HISTORYPast Surgical History:ProcedureLaterality Date -COLON SURGERY -EXPLORATORY LAPAROTOMY -HYSTERECTOMYCURRENT MEDICATIONSOutpatient Prescriptions Marked as Taking for the 06/05/18 encounter (Hospital Encounter)MedicationSigDisp enseRefill -hydroCHLOROthiazide (HYDRODIURIL) 25 mg tabletTake 25 mg by mouth daily.ALLERGIESAllergiesAll ergenReactions -Norvasc [Amlodipine] -Penicillins -Tenormin [Atenolol]PHYSICAL EXAMVITAL SIGNS:ED Triage Vitals [06/05/18 1641]BP171/66Axlh95.2 ?F (36.8 ?C)Heart [id number] %Nnbvyo197 lb (46.7 kg)Index Coma Scale Jrvbc03RWR (Calculated)17.7Constitutio nal: Well developed, Well nourished, No acute distress, Non-toxic appearance.HENT: Normocephalic, Atraumatic, Bilateral external ears normal, Oropharynx moist, No oralexudates, Nose normal.Eyes: PERRLA, EOMI, Conjunctiva normal, No discharge.Neck: Normal range of motion, No tenderness, Supple, No stridor.Cardiovascular: Normal heart rate, Normal rhythm, No murmurs, No rubs, No gallops.Thorax AND Lungs: Normal breath sounds, No respiratory distress, No wheezing, No chest tenderness.Abdomen: Bowel sounds normal, Soft, No tenderness, No masses, No pulsatile masses.Skin: Warm, Dry, No erythema, No rash.Back: No tenderness, No CVA tenderness.Extremities: Patient has moderate swelling and ecchymosis to the right knee. Patient tender withpalpation of the patella. Limited range of motion at the knee. Patient has good distal sensationcapillary refill and pulses. No ankle tenderness or hip tenderness in the right leg withpalpation. Patient moving all other extremities without difficulty.Neurologic: Alert AND oriented x 3, Normal motor function, Normal sensory function, No focal deficitsnoted. GCS 15RADIOLOGY/PROCEDURESLast Imaging resultsResults for orders placed or performed during the hospital encounter of 06/05/18XR-KNEE RIGHT 1-2 VIEWSNarrativePROCEDURE:XR- KNEE RIGHT 1-2 VIEWSDATE OF EXAM: 06/05/2018 5:39 PMDEMOGRAPHICS: 72 years old FemaleINDICATION: fall with injury History: fall with injury. Number of Series/Images: 2.COMPARISON: No existing relevant imaging study corresponding to the same anatomical region isavailable.FINDINGS:2 views of the Right knee were obtained. There is a transverse fracture through the midportion ofthe patella with proximal migration of the proximal pole. There is angulation at fracture site withmild comminution. Soft tissue swelling overlies the fracture site. The joint spaces are maintained.There is no significant soft tissue swelling.ImpressionMildly comminuted and distracted fracture of the mid patella.Electronically Signed by: Efrain Alcantar MD, 06/05/2018 5:44 PMCOURSE AND MEDICAL DECISION MAKINGPertinent Labs AND Imaging studies reviewed. (See chart for details)I have seen this patient in conjunction with Dr. VillarealBP 171/62 Pulse 63 Temp 98.2 ?F (36.8 ?C) Resp 18 Ht 5' 4 (1.626 m) Wt 103 lb (46.7kg) SpO2 100% BMI 17.68 kg/m? Patient with patellar fracture. Spoke with orthopedic physician on-call who requested placing thepatient in the immobilizer and given her a walker. Will follow-up in the office as directed.Discussed reasons for immediate return the emergency department with patient. Patient given Norcofor pain. Vital signs stable prior to discharge.FINAL [id number].Closed displaced comminuted fracture of right patella, rspnmyubihzyvyjeI35.041AHYD ROcodone-acetaminophen (NORCO) 5-325 mg tabletElectronicallysigned by: Fabian Trejo PA-C, 06/05/2018 7:05 PMMELY BradyC006/05/18 1904BranMELY BuenoC006/05/18 1905BranMELY BuenoC006/05/18 1909 Normal [facility] XR-KNEE RIGHT 1-2 VIEWSon XR-KNEE RIGHT 1-2 VIEWS PROCEDURE: XR-KNEE RIGHT 1-2 VIEWSDATE OF EXAM: 06/05/2018 5:39 PMDEMOGRAPHICS: 72 years old Female INDICATION: fall with injury History: fall with injury. Number of Series/Images: 2. COMPARISON: No existing relevant imaging study corresponding to the same anatomical region is available.FINDINGS:2 views of the Right knee were obtained. There is a transverse fracture through the midportion of the patella with proximal migration of the proximal pole. There is angulation at fracture site with mild comminution. Soft tissue swelling overlies the fracture site. The joint spaces are maintained. There is no significant soft tissue swelling. IMPRESSION:IMPRESSION:Mildl y comminuted and distracted fracture of the mid patella. Electronically Signed by: Efrain Alcantar MD, 06/05/2018 5:44 PM Normal [facility] Basic Metabolic Panelon 04-25 Anion gap molar conc 12.90 mmol/L Normal 8.00-16.00 [facility] Comment on above: Order Comment: Fasti n hours Performed By: #### C 215, C304, C8, C45, C48, C4124 #### [facility] [address] [place] [address] B/C Ratio 25.7 Ratio Normal [facility] Comment on above: Order Comment: Fasti n hours Performed By: #### C 215, C304, C8, C45, C48, C4124 #### [facility] [address] [place] [address] Calcium mass conc 9.6 mg/dL Normal 8.5-10.5 [facility] Comment on above: Order Comment: Fasti n hours Performed By: #### C 215, C304, C8, C45, C48, C4124 #### [facility] [place] [address] Chloride molar conc 98 mmol/L Normal 98-107 [facility] Comment on above: Order Comment: Fasti n hours Performed By: #### C 215, C304, C8, C45, C48, C4124 #### [facility] [address] [place] [address] [place] [address] CO2 molar conc 31.1 mmol/L High 22.0-30.0 [facility] Comment on above: Order Comment: Fasti n hours Performed By: #### C 215, C304, C8, C45, C48, C4124 #### [facility] [address] [place] [address] [place] [address] Creatinine mass conc 0.7 mg/dL Normal 0.1-1.2 [facility] Comment on above: Order Comment: Fasti n hours Performed By: #### C 215, C304, C8, C45, C48, C4124 #### [facility] [address] [place] [address] [address] [place] [address] GFR/1.73 sq M.predicted MDRD vol rate/area 82 mL/min per 1.73 Normal >60 [facility] Comment on above: Order Comment: Fasti n hours Result Comment: The GFR estimate is not adjusted for race. If the patient's race is -[place], the GFR estimate must be multiplied by a factor of 1.21. Performed By: #### C 215, C304, C8, C45, C48, C4124 #### [facility] [address] [place] [address] Glucose mass conc 85 mg/dL Normal 74-100 [facility] Comment on above: Order Comment: Fasti n hours Performed By: #### C 215, C304, C8, C45, C48, C4124 #### [facility] [address] [place] [address] Potassium molar conc 3.6 mmol/L Normal 3.5-5.3 [facility] Comment on above: Order Comment: Fasti n hours Performed By: #### C 215, C304, C8, C45, C48, C4124 #### [facility] [address] [place] [address] Sodium molar conc 142 mmol/L Normal 135-145 [facility] Comment on above: Order Comment: Fasti n hours Performed By: #### C 215, C304, C8, C45, C48, C4124 #### [facility] [address] [place] [address] Urea nitrogen mass conc 18 mg/dL Normal 6-22 [facility] Comment on above: Order Comment: Fasti n hours Performed By: #### C 215, C304, C8, C45, C48, C4124 #### [facility] [address] [place] [address] CBC with differentialon 04-25 Basophils #/vol (Bld) 0.0 K CUMM Normal 0.0-0.2 [facility] Comment on above: Order Comment: Items in this order include: Lipid Panel, Basic Metabolic Panel , CBC with differential, TSH w/ reflex to FT4, Urinalysis, Hepatic Panel, , , , Fastin hours Performed By: #### C 215, C304, C8, C45, C48, C4124 #### [facility] [address] [place] [address] Basophils/100 WBC (Bld) 0.7 % Normal 0.0-3.0 [facility] Comment on above: Order Comment: Items in this order include: Lipid Panel, Basic Metabolic Panel , CBC with differential, TSH w/ reflex to FT4, Urinalysis, Hepatic Panel, , , , Fastin hours Performed By: #### C 215, C304, C8, C45, C48, C4124 #### [facility] [address] [place] [address] Eosinophils #/vol (Bld) 0.1 K CUMM Normal 0.0-0.4 [facility] Comment on above: Order Comment: Items in this order include: Lipid Panel, Basic Metabolic Panel , CBC with differential, TSH w/ reflex to FT4, Urinalysis, Hepatic Panel, , , , Fastin hours Performed By: #### C 215, C304, C8, C45, C48, C4124 #### [facility] [address] [place] [address] [place] [address] Eosinophils/100 WBC (Bld) 1.7 % Normal 0.0-7.0 [facility] Comment on above: Order Comment: Items in this order include: Lipid Panel, Basic Metabolic Panel , CBC with differential, TSH w/ reflex to FT4, Urinalysis, Hepatic Panel, , , , Fastin hours Performed By: #### C 215, C304, C8, C45, C48, C4124 #### [facility] [address] [place] [address] Erythrocyte distribution width Ratio (RBC) 14.2 % Normal 11.5-15.5 [facility] Comment on above: Order Comment: Items in this order include: Lipid Panel, Basic Metabolic Panel , CBC with differential, TSH w/ reflex to FT4, Urinalysis, Hepatic Panel, , , , Fastin hours Performed By: #### C 215, C304, C8, C45, C48, C4124 #### [facility] [address] [place] [address] Hematocrit Volume Fraction (Bld) 43.3 % Normal 37.0-47.0 [facility] Comment on above: Order Comment: Items in this order include: Lipid Panel, Basic Metabolic Panel , CBC with differential, TSH w/ reflex to FT4, Urinalysis, Hepatic Panel, , , , Fastin hours Performed By: #### C 215, C304, C8, C45, C48, C4124 #### [facility] [address] [place] [address] Hemoglobin mass conc (Bld) 14.6 g/dL Normal 11.5-15.5 [facility] Comment on above: Order Comment: Items in this order include: Lipid Panel, Basic Metabolic Panel , CBC with differential, TSH w/ reflex to FT4, Urinalysis, Hepatic Panel, , , , Fastin hours Performed By: #### C 215, C304, C8, C45, C48, C4124 #### [facility] [address] [place] [address] Lymphocytes #/vol (Bld) 1.2 K CUMM Normal 0.7-4.5 [facility] Comment on above: Order Comment: Items in this order include: Lipid Panel, Basic Metabolic Panel , CBC with differential, TSH w/ reflex to FT4, Urinalysis, Hepatic Panel, , , , Fastin hours Performed By: #### C 215, C304, C8, C45, C48, C4124 #### [facility] [address] [place] [address] Lymphocytes/100 WBC (Bld) 24.7 % Normal 14.0-46.0 [facility] Comment on above: Order Comment: Items in this order include: Lipid Panel, Basic Metabolic Panel , CBC with differential, TSH w/ reflex to FT4, Urinalysis, Hepatic Panel, , , , Fastin hours Performed By: #### C 215, C304, C8, C45, C48, C4124 #### [facility] [address] [place] [address] MCH Entitic mass (RBC) 29.1 pg Normal 27.0-31.0 [facility] Comment on above: Order Comment: Items in this order include: Lipid Panel, Basic Metabolic Panel , CBC with differential, TSH w/ reflex to FT4, Urinalysis, Hepatic Panel, , , , Fastin hours Performed By: #### C 215, C304, C8, C45, C48, C4124 #### [facility] [address] [place] [address] MCHC mass conc (RBC) 33.8 g/dL Normal 32.0-36.0 [facility] Comment on above: Order Comment: Items in this order include: Lipid Panel, Basic Metabolic Panel , CBC with differential, TSH w/ reflex to FT4, Urinalysis, Hepatic Panel, , , , Fastin hours Performed By: #### C 215, C304, C8, C45, C48, C4124 #### [facility] [address] [place] [address] MCV Entitic volume (RBC) 86.0 fL Normal 78.0-100.0 [facility] Comment on above: Order Comment: Items in this order include: Lipid Panel, Basic Metabolic Panel , CBC with differential, TSH w/ reflex to FT4, Urinalysis, Hepatic Panel, , , , Fastin hours Performed By: #### C 215, C304, C8, C45, C48, C4124 #### [facility] [address] [place] [address] Monocytes #/vol (Bld) 0.6 K CUMM Normal 0.1-1.0 [facility] Comment on above: Order Comment: Items in this order include: Lipid Panel, Basic Metabolic Panel , CBC with differential, TSH w/ reflex to FT4, Urinalysis, Hepatic Panel, , , , Fastin hours Performed By: #### C 215, C304, C8, C45, C48, C4124 #### [facility] [address] [place] [address] Monocytes/100 WBC (Bld) 11.1 % Normal 4.0-13.0 [facility] Comment on above: Order Comment: Items in this order include: Lipid Panel, Basic Metabolic Panel , CBC with differential, TSH w/ reflex to FT4, Urinalysis, Hepatic Panel, , , , Fastin hours Performed By: #### C 215, C304, C8, C45, C48, C4124 #### [facility] [address] [place] [address] Neutrophils #/vol (Bld) 3.1 K CUMM Normal 1.8-7.8 [facility] Comment on above: Order Comment: Items in this order include: Lipid Panel, Basic Metabolic Panel , CBC with differential, TSH w/ reflex to FT4, Urinalysis, Hepatic Panel, , , , Fastin hours Performed By: #### C 215, C304, C8, C45, C48, C4124 #### [facility] [address] [place] [address] [place] [address] Neutrophils/100 WBC (Bld) 61.8 % Normal 40.0-74.0 [facility] Comment on above: Order Comment: Items in this order include: Lipid Panel, Basic Metabolic Panel , CBC with differential, TSH w/ reflex to FT4, Urinalysis, Hepatic Panel, , , , Fastin hours Performed By: #### C 215, C304, C8, C45, C48, C4124 #### [facility] [address] [place] [address] [place] [address] Platelet mean volume Entitic volume (Bld) 8.8 fL Normal 7.4-10.4 [facility] Comment on above: Order Comment: Items in this order include: Lipid Panel, Basic Metabolic Panel , CBC with differential, TSH w/ reflex to FT4, Urinalysis, Hepatic Panel, , , , Fastin hours Performed By: #### C 215, C304, C8, C45, C48, C4124 #### [facility], [facility] [address] [place] [address] Platelets #/vol (Bld) 282 K CUMM Normal 130-400 [facility] Comment on above: Order Comment: Items in this order include: Lipid Panel, Basic Metabolic Panel , CBC with differential, TSH w/ reflex to FT4, Urinalysis, Hepatic Panel, , , , Fastin hours Performed By: #### C 215, C304, C8, C45, C48, C4124 #### [facility] [address] [place] [address] RBC #/vol (Bld) 5.03 M CUMM Normal 3.80-5.10 [facility] Comment on above: Order Comment: Items in this order include: Lipid Panel, Basic Metabolic Panel , CBC with differential, TSH w/ reflex to FT4, Urinalysis, Hepatic Panel, , , , Fastin hours Performed By: #### C 215, C304, C8, C45, C48, C4124 #### [facility] [address] [place] [address] [place] [address] WBC #/vol (Bld) 5.0 K CUMM Normal 3.8-10.6 [facility] Comment on above: Order Comment: Items in this order include: Lipid Panel, Basic Metabolic Panel , CBC with differential, TSH w/ reflex to FT4, Urinalysis, Hepatic Panel, , , , Fastin hours Performed By: #### C 215, C304, C8, C45, C48, C4124 #### [facility] [address] [place] [address] [place] [address] Hepatic Panelon 05-12-2018 Albumin mass conc 4.4 g/dL Normal 3.5-5.0 [facility] Comment on above: Order Comment: Fasti n hours Performed By: #### C 215, C304, C8, C45, C48, C4124 #### [facility] [place] [address] Alk Phos 90 U/L Normal 23-159 [facility] Comment on above: Order Comment: Fasti n hours Performed By: #### C 215, C304, C8, C45, C48, C4124 #### [facility] [address] [place] [address] [address] [place] [address] ALT enzyme act/vol 28 U/L Normal 10-52 [facility] Comment on above: Order Comment: Fasti n hours Performed By: #### C 215, C304, C8, C45, C48, C4124 #### [facility] [address] [place] [address] AST enzyme act/vol 47 U/L High 11-43 [facility] Comment on above: Order Comment: Fasti n hours Performed By: #### C 215, C304, C8, C45, C48, C4124 #### [facility] [address] [place] [address] Bili (Direct) 0.0 mg/dL Normal 0.0-0.3 [facility] Comment on above: Order Comment: Fasti n hours Performed By: #### C 215, C304, C8, C45, C48, C4124 #### [facility] [address] [place] [address] [address] [place] [address] Bili (Indirect) 0.2 mg/dL Normal 0.0-1.1 [facility] Comment on above: Order Comment: Fasti n hours Performed By: #### C 215, C304, C8, C45, C48, C4124 #### [facility] [address] [place] [address] Bilirubin mass conc 0.5 mg/dL Normal 0.2-1.3 [facility] Comment on above: Order Comment: Fasti n hours Performed By: #### C 215, C304, C8, C45, C48, C4124 #### [facility] [address] [place] [address] Protein mass conc 7.5 g/dL Normal 6.3-8.4 [facility] Comment on above: Order Comment: Fasti n hours Performed By: #### C 215, C304, C8, C45, C48, C4124 #### [facility] [address] [place] [address] Lipid Panelon 05-12-2018 Cholesterol in HDL mass conc 88 mg/dL Normal >50 [facility] Comment on above: Order Comment: Items in this order include: Lipid Panel, Basic Metabolic Panel , CBC with differential, TSH w/ reflex to FT4, Urinalysis, Hepatic Panel, , , , Fastin hours Performed By: #### C 215, C304, C8, C45, C48, C4124 #### [facility] [address] [place] [address] Cholesterol in LDL mass conc 141 mg/dL High <130 [facility] Comment on above: Order Comment: Items in this order include: Lipid Panel, Basic Metabolic Panel , CBC with differential, TSH w/ reflex to FT4, Urinalysis, Hepatic Panel, , , , Fastin hours Performed By: #### C 215, C304, C8, C45, C48, C4124 #### [facility] [address] [place] [address] [address] [place] [address] Cholesterol mass conc 246 mg/dL High <200 [facility] Comment on above: Order Comment: Items in this order include: Lipid Panel, Basic Metabolic Panel , CBC with differential, TSH w/ reflex to FT4, Urinalysis, Hepatic Panel, , , , Fastin hours Performed By: #### C 215, C304, C8, C45, C48, C4124 #### [facility] [address] [place] [address] Cholesterol.total/C holesterol in HDL mass ratio 2.8 {ratio} Normal <4.0 [facility] Comment on above: Order Comment: Items in this order include: Lipid Panel, Basic Metabolic Panel , CBC with differential, TSH w/ reflex to FT4, Urinalysis, Hepatic Panel, , , , Fastin hours Performed By: #### C 215, C304, C8, C45, C48, C4124 #### [facility] [address] [place] [address] [address] [place] [address] CO2 molar conc 84 mg/dL Normal <150 [facility] Comment on above: Order Comment: Items in this order include: Lipid Panel, Basic Metabolic Panel , CBC with differential, TSH w/ reflex to FT4, Urinalysis, Hepatic Panel, , , , Fastin hours Performed By: #### C 215, C304, C8, C45, C48, C4124 #### [facility] [address] [place] [address] Non-HDL Chol 158 Normal LDL Goal + 30 [facility] Comment on above: Order Comment: Items in this order include: Lipid Panel, Basic Metabolic Panel , CBC with differential, TSH w/ reflex to FT4, Urinalysis, Hepatic Panel, , , , Fastin hours Result Comment: LDL and Non-HDL goal dependent upon individual risk Performed By: #### C 215, C304, C8, C45, C48, C4124 #### [facility] [address] [place] [address] VLDL-Calc 17 mg/dl Normal <30 [facility] Comment on above: Order Comment: Items in this order include: Lipid Panel, Basic Metabolic Panel , CBC with differential, TSH w/ reflex to FT4, Urinalysis, Hepatic Panel, , , , Fastin hours Performed By: #### C 215, C304, C8, C45, C48, C4124 #### [facility] [address] [place] [address] TSH w/ reflex to FT4on 05-12 Thyrotropin Qn 3.05 MIU/mL Normal 0.50-6.00 [facility] Comment on above: Order Comment: Items in this order include: Lipid Panel, Basic Metabolic Panel , CBC with differential, TSH w/ reflex to FT4, Urinalysis, Hepatic Panel, , , , Fastin hours Performed By: #### C 215, C304, C8, C45, C48, C4124 #### [facility] [address] [place] [address] Urinalysison 05-12-2018 Bilirubin mass conc Negative Normal negative [facility] Comment on above: Order Comment: Items in this order include: Lipid Panel, Basic Metabolic Panel , CBC with differential, TSH w/ reflex to FT4, Urinalysis, Hepatic Panel, , , , Fastin hours Performed By: #### C 215, C304, C8, C45, C48, C4124 #### [facility] [address] [place] [address] [place] [address] Blood Negative Normal negative [facility] Comment on above: Order Comment: Items in this order include: Lipid Panel, Basic Metabolic Panel , CBC with differential, TSH w/ reflex to FT4, Urinalysis, Hepatic Panel, , , , Fastin hours Performed By: #### C 215, C304, C8, C45, C48, C4124 #### [facility] [address] [place] [address] [place] [address] Clarity Nom (U) Clear Normal clear [facility] Comment on above: Order Comment: Items in this order include: Lipid Panel, Basic Metabolic Panel , CBC with differential, TSH w/ reflex to FT4, Urinalysis, Hepatic Panel, , , , Fastin hours Performed By: #### C 215, C304, C8, C45, C48, C4124 #### [facility] [address] [place] [address] [place] [address] Color Nom (U) yellow Normal yellow [facility] Comment on above: Order Comment: Items in this order include: Lipid Panel, Basic Metabolic Panel , CBC with differential, TSH w/ reflex to FT4, Urinalysis, Hepatic Panel, , , , Fastin hours Performed By: #### C 215, C304, C8, C45, C48, C4124 #### [facility] [address] [place] [address] [place] [address] Glucose mass conc Negative Normal negative [facility] Comment on above: Order Comment: Items in this order include: Lipid Panel, Basic Metabolic Panel , CBC with differential, TSH w/ reflex to FT4, Urinalysis, Hepatic Panel, , , , Fastin hours Performed By: #### C 215, C304, C8, C45, C48, C4124 #### [facility] [address] [place] [address] Ketones Ql (U) Negative Normal negative [facility] Comment on above: Order Comment: Items in this order include: Lipid Panel, Basic Metabolic Panel , CBC with differential, TSH w/ reflex to FT4, Urinalysis, Hepatic Panel, , , , Fastin hours Performed By: #### C 215, C304, C8, C45, C48, C4124 #### [facility] [address] [place] [address] Nitrite Ql (U) Negative Normal negative [facility] Comment on above: Order Comment: Items in this order include: Lipid Panel, Basic Metabolic Panel , CBC with differential, TSH w/ reflex to FT4, Urinalysis, Hepatic Panel, , , , Fastin hours Performed By: #### C 215, C304, C8, C45, C48, C4124 #### [facility] [address] [place] [address] [address] [place] [address] pH (Bld) 6.0 Normal 5.0-9.0 [facility] Comment on above: Order Comment: Items in this order include: Lipid Panel, Basic Metabolic Panel , CBC with differential, TSH w/ reflex to FT4, Urinalysis, Hepatic Panel, , , , Fastin hours Performed By: #### C 215, C304, C8, C45, C48, C4124 #### [facility] [address] [place] [address] [address] [place] [address] Protein mass conc (U) Negative Normal negative [facility] Comment on above: Order Comment: Items in this order include: Lipid Panel, Basic Metabolic Panel , CBC with differential, TSH w/ reflex to FT4, Urinalysis, Hepatic Panel, , , , Fastin hours Performed By: #### C 215, C304, C8, C45, C48, C4124 #### [facility] [address] [place] [address] [place] [address] S.G. 1.016 Normal 1.001-1.03 5 [facility] Comment on above: Order Comment: Items in this order include: Lipid Panel, Basic Metabolic Panel , CBC with differential, TSH w/ reflex to FT4, Urinalysis, Hepatic Panel, , , , Fastin hours Performed By: #### C 215, C304, C8, C45, C48, C4124 #### [facility] [address] [place] [address] Urobilinogen Qn (U) Negative Normal negative [facility] Comment on above: Order Comment: Items in this order include: Lipid Panel, Basic Metabolic Panel , CBC with differential, TSH w/ reflex to FT4, Urinalysis, Hepatic Panel, , , , Fastin hours Performed By: #### C 215, C304, C8, C45, C48, C4124 #### [facility] [address] [place] [address] WBC #/vol (Bld) Negative Normal negative [facility] Comment on above: Order Comment: Items in this order include: Lipid Panel, Basic Metabolic Panel , CBC with differential, TSH w/ reflex to FT4, Urinalysis, Hepatic Panel, , , , Fastin hours Performed By: #### C 215, C304, C8, C45, C48, C4124 #### [facility] 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 No abnormal enhancement of the spinal cord. No evidence of cord edema. Bone marrow signal/fracture: No evidence of pathologic marrow infiltration. No evidence of acute and chronic fracture. Thoracic paraspinal soft tissues: The paraspinal soft tissues are within normal limits. Canal and foramina: Evidence of a large inhomogeneous/heterogeneous signal intensity mass with cystic and solid components involving the right apical region with chronic remodeling and enlargement of the right T2-T3 neural foramen. Very mild extension into the lateral portion of the right side of the spinal canal with mild mass effect right lateral thecal sac seen on axial image 11, unchanged. Evidence of inhomogeneous enhancement of the mass.Mass measures 3.8 cm craniocaudal by 5 cm AP by 4.2 cm transverse.No additional enhancing intradural or extradural masses are seen. No evidence of a disc herniation.No evidence of degenerative disc changes. IMPRESSION: Compared to 05/13/2017 MRI, no significant change in the large heterogeneous enhancing mass in the right upper thorax with chronic remodeling/enlargement of the right T2-T3 neural foramen. Leading MRI diagnostic consideration remains a schwannoma. No new peripheral nerve lesions are seen. Normal [facility] Vital Signs Date Time Vital Sign Value Performing Clinician Janell gooden 04-09-2024 11:[id number] Body height 154.3 cm Charles Pathak MD Work Phone: [facility] 04-09-2024 11:02-0400 Body mass index (BMI) [Ratio] 18.29 kg/m2 Charles Pathak MD Work Phone: [facility] 04-09-2024 11:02-0400 Body temperature 97.7 [degF] Charles Pathak MD Work Phone: [facility] 04-09-2024 11:02-0400 Body weight 43.55 kg Charles Pathak MD Work Phone: [facility] 04-09-2024 11:02-0400 Diastolic blood pressure 78 mm[Hg] Charles Pathak MD Work Phone: [facility] 04-09-2024 11:02-0400 Heart rate 62 /min Charles Pathak MD Work Phone: [facility] 04-09-2024 11:02-0400 SaO2% (BldA) [Mass fraction] 95 % Charles Pathak MD Work Phone: [facility] 04-09-2024 11:02-0400 Systolic blood pressure 188 mm[Hg] Charles Pathak MD Work Phone: [facility] Encounters Encounter Date Encounter Type Care Provider Facility Start: 06-15-2024 ambulatory Celia french MD Work Phone: [facility] [place] Comment on above: MRI Cervical spine Start: 06-15-2024 Telephone encounter Ирина lucio MD Work Phone: Gastroenterology Start: 06-10-2024 End: 06-10-2024 ambulatory CELIA SOTO Facility:[facility] Start: 06-10-2024 End: 06-10-2024 Subsequent hospital visit by physician Mri [facility] (I-Stat/1.5t) Work Phone: Radiology Comment on above: Spinal stenosis of c ervical region [M48.02] Start: 04-24-2024 End: 04-24-2024 ambulatory Celia Soto MD Work Phone: [facility] [place] Comment on above: Cervical spondylosis with myelopathy (Primary Dx); Spinal stenosis of cervical region Start: 04-24-2024 End: 04-24-2024 Telemedicine consultation with patient Celia Soto MD Work Phone: [facility] [place] Start: 04-21-2024 ambulatory ANH EPPS Facility: [facility] Start: 04-21-2024 End: 04-21-2024 Office outpatient visit 15 minutes Anh Epps MD Work Phone: [facility] [place] [facility] Comment on above: 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); Posterior vitreous detachment of left eye; Pseudophakia, left eye Start: 04-09-2024 End: 04-09-2024 Patient encounter procedure Charles Pathak MD Work Phone: Colorectal Surgery Comment on above: History of rectal ca ncer (Primary Dx) Start: 04-09-2024 End: 04-09-2024 ambulatory CHARLES PATHAK Facility:[facility] Start: 04-08-2024 Chart abstracting Huma Page RN Colorectal Surgery Start: 03-03-2024 End: 03-03-2024 ambulatory Uzma Holguin ANDROID IOS DEVELOPER.PIANO REGULATOR Work Phone: [facility] Comment on above: Neoplasm of lung (Pr imary Dx); Schwannoma of nerve of chest Start: 03-03-2024 End: 03-03-2024 Telemedicine consultation with patient Uzma Holguin APRN.PIANO REGULATOR Work Phone: [facility] Start: 03-03-2024 End: 03-03-2024 Subsequent hospital visit by physician Leslye Bang MD Work Phone: [facility] Start: 03-02-2024 End: [facility]20[facility] Start: 03-02-2024 End: 03-02-2024 Subsequent hospital visit by physician Zahida [facility] (I-Stat) Work Phone: Cat Scan Comment on above: 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] Start: 02-24-2024 End: 02-24-2024 ambulatory [facility] Facility[facility] Start: 01-21-2024 ambulatory LESLYE BANG Facility: [facility] Start: 01-21-2024 End: 01-21-2024 Postop follow up visit related to original px Anh Epps MD Work Phone: [facility] [place] [facility] Comment on above: Aftercare following surgery of a sensory organ (Primary Dx); Choroidal nevus of left eye; Epiretinal membrane (ERM) of right eye Start: 01-03-2024 ambulatory LESLYE BANG Facility: [facility] Start: 01-03-2024 End: 01-03-2024 Postop follow up visit related to original px Anh Epps MD Work Phone: [facility] [place] Comment on above: Aftercare following surgery of a sensory organ (Primary Dx); Epiretinal membrane (ERM) of right eye; Choroidal nevus of left eye; Visual field constriction of left eye Start: 12-31-2023 ambulatory LESLYE S JOLLIFF Facility: [facility] Start: 12-31-2023 End: 12-31-2023 Postop follow up visit related to original px Anh Epps MD Work Phone: [facility] [place] Comment on above: Aftercare following surgery of a sensory organ (Primary Dx); Epiretinal membrane (ERM) of right eye Start: 12-24-2023 ambulatory LESLYE BANG Facility: [facility] Start: 12-23-2023 End: 12-23-2023 ambulatory ANH EPPS Facility:[facility] Start: 12-03-2023 End: 12-03-2023 ambulatory UZMA HOLGUIN Facility:[facility] Start: 11-29-2023 End: 11-29-2023 ambulatory [facility] Facility:[facility] Start: 11-19-2023 End: 11-19-2023 ambulatory [facility] Facility:[facility] Start: 10-01-2023 ambulatory LESLYE S VELMA Facility: [facility] Start: 10-01-2023 Encounter for other preprocedural examination LESLYE BANG Facility:[facility] Start: 09-20-2023 ambulatory SELF SELF Facility:[facility] Start: 09-20-2023 End: 09-20-2023 Office outpatient visit 25 minutes Anh Epps MD Work Phone: [facility] [place] Comment on above: Nuclear sclerotic ca taract of left eye (Primary Dx); Epiretinal membrane (ERM) of right eye; Choroidal nevus of left eye Start: 02-14-2023 End: 02-14-2023 Office outpatient visit 25 minutes Anh Epps MD Work Phone: [facility] [place] Comment on above: 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); Epiretinal membrane (ERM) of right eye; Nuclear sclerotic cataract of left eye Start: 04-13-2022 End: 04-13-2022 Patient encounter procedure SHANNAN OTRO MD [facility] Start: 02-15-2022 End: 02-15-2022 Postop follow up visit related to original px Kody Grey MD Work Phone: [facility] [place] Comment on above: Postop check - Right Eye (Primary Dx); Paralytic ptosis, acquired, right - Right Eye; Acquired right-sided Aydin syndrome Start: 11-03-2021 End: 11-03-2021 Subsequent hospital visit by physician [facility] Yeni Work Phone: Radiology Comment on above: 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] Start: 06-05-2018 End: 06-05-2018 Emergency department patient visit [facility] Start: 05-08-2018 End: 05-09-2018 Ambulatory IMCA Facility:[facility] Procedures Date Procedure Procedure Detail Performing Clinician Start: 06-10-2024 Mri spinal canal cer vical w/o contrast akshatl Celia Soto MD Work Phone: Start: 04-21-2024 End: 04-21-2024 Fundus photography w/interpretation & report Anh Epps MD Work Phone: Start: 04-21-2024 Ophthalmic ultrasoun d dx b-scan w/wo a-scan Anh Epps MD Work Phone: Start: 01-21-2024 Optical coherence tomography of retina Anh Epps MD Work Phone: Start: 01-21-2024 Fundus photography w/interpretation & report Anh Epps MD Work Phone: Start: 01-03-2024 Fundus photography w/interpretation & report Anh Epps MD Work Phone: Start: 01-03-2024 End: 01-03-2024 Computerized ophthalmic imaging retina Anh Epps MD Work Phone: Start: 09-20-2023 Fundus photography w/interpretation & report Anh Epps MD Work Phone: Start: 09-20-2023 Oph bmtry prtl coher intrfrmtry io lens pwr roel Anh Epps MD Work Phone: Start: 02-14-2023 Ophthalmic ultrasoun d dx b-scan w/wo a-scan Anh Epps MD Work Phone: Start: 02-14-2023 End: 02-14-2023 Fundus photography w/interpretation & report Anh Epps MD Work Phone: Start: 11-03-2021 [facility] spine thoracic 2 views Maggy Sharp PA-C Work Phone: Plan of Treatment Date Care Activity Detail Author Start: 03-03-2025 Screening for malignant neoplasm of breast MAMMOGRAM SCREENING DISCUSSION [facility] Start: 08-04-2024 End: 08-04-2024 Patient encounter procedure 08/04/2024 3:00 PM EDT Appointment Gastroenterology [address] [address] Ирина Hardy MD [address] [address] History of rectal cancer Gastroenterology Comment on above: History of rectal cancer Start: 07-26-2024 Covid-19 Vaccine ( season) Covid-19 Vaccine ( season) [facility] Start: 07-26-2024 Influenza vaccination [facility] Start: 06-17-2024 End: 06-17-2024 Patient encounter procedure 06/17/2024 8:30 AM EDT Appointment Gastroenterology [address] [address] Ирина Hardy MD [address] [address] History of rectal cancer Gastroenterology Comment on above: History of rectal cancer Start: 04-24-2024 End: 04-24-2024 Follow-up encounter 04/24/2024 2:[address] [facility] [address] [place] [address] Celia Soto MD [address] [place] [address] follow up [facility] [place] Comment on above: follow up Start: 04-21-2024 End: 04-21-2024 Patient encounter procedure 04/21/2024 1:00 PM EDT Office Visit [facility] [place] [facility] [address] [place], [place] [id number] OhAnh gil MD [address] [facility] [address] [place] [address] [facility] [place] [facility] Start: 04-09-2024 End: 04-09-2024 Patient encounter procedure 04/09/2024 10:00 AM EDT Office Visit Colorectal Surgery [address] [address] Charles Pathak MD [address] [place] [address] last seen in 2019 Colorectal Surgery Comment on above: last seen in 2019 Start: 03-12-2024 End: 03-12-2024 Patient encounter procedure 03/12/2024 2:00 PM EDT Appointment [facility] [address] [facility] [address] [place] [address] Leslye Bang MD [address] [place] [address] [facility] Start: 02-15-2024 Screening for malignant neoplasm of breast MAMMOGRAM SCREENING DISCUSSION [facility] Start: 01-31-2024 End: 01-03-2025 Optical coherence tomography of retina OCT/HRT [facility]* [place] - OFFICE PERFORMED IMAGING Routine Epiretinal membrane (ERM) of right eye Expected: 01/31/2024 (Approximate), [facility] on above: Expected: 01/31/2024 (Approximate), Expi res: 01/03/2025 Start: 01-21-2024 End: 01-21-2024 Patient encounter procedure 01/21/2024 1:20 PM EST Office Visit [facility] [address] [place] [address] Anh Epps MD [address] [place] [id number] [facility] [place] Start: 11-25-2023 Advance Directive Discussion Advance Directive Discussion [facility] Start: 11-25-2023 Behavioral Health Screening Behavioral Health Screening [facility] Start: 11-04-2023 Diabetes Screening Diabetes Screening [facility] Start: 10-21-2023 Subsequent hospital visit by physician 10/21/2023 Hospital Encounter [facility] [address] [place] [address] Anh Epps MD [address] [place] [address] Nuclear sclerotic cataract of left eye [facility] [place] Comment on above: Nuclear sclerotic cataract of left eye Start: 10-01-2023 End: 10-01-2023 ambulatory 10/01/2023 8:30 AM EST Pre-Operative Nurse Assessment Telehealth Pre Procedure Preparation [place] [address] Christine Asher, LASHANDA Telehealth Pre Procedure Preparation Start: 07-26-2023 COVID-19 VACCINE () COVID-19 VACCINE () [facility] Start: 07-26-2023 Influenza vaccination INFLUENZA VACCINE (#1) [facility] Start: 11-30-2022 Screening mammography MAMMOGRAM SCREENING DISCUSSION [facility] [facility] Start: 07-11-2021 COVID-19 VACCINE (3 - Booster for Pfizer series) COVID-19 VACCINE (3 - Booster for Pfizer series) [facility] Start: 04-05-2021 COVID-19 VACCINE (3 - Booster for Pfizer series) COVID-19 VACCINE (3 - Booster for Pfizer series) [facility] Start: 2019 RSV Vaccine (1 - 1-dose 75+ series) RSV Vaccine (1 - 1-dose 75+ series) [facility] Start: 12-05-2011 Potassium [Moles/volume] in Serum or Plasma POTASSIUM [facility] Start: 2009 Pneumococcal vaccination PNEUMOCOCCAL VACCINE SERIES (1 of 1 - PPSV23) [facility] Start: 2009 Pneumococcal Vaccine: 65+ (1 of 1 - PCV) Pneumococcal Vaccine: 65+ (1 of 1 - PCV) [facility] Start: 2009 Screening for osteoporosis Bone Density Screening [facility] Start: 05-14-2009 Screening for osteoporosis DEXA SCAN DISCUSSION [facility] Start: 2004 RSV Vaccine (1 - 1-dose 60+ series) RSV Vaccine (1 - 1-dose 60+ series) [facility] Start: 1994 Shingrix Vaccine (1 of 2) Shingrix Vaccine (1 of 2) [facility] Start: 1994 Zoster vaccine hzv live for subcutaneous use ZOSTER (SHINGLES) VACCINE (1 of 2) [facility] Start: 1989 Colonoscopy COLORECTAL CANCER SCREENING DISCUSSION [facility] Start: 1989 Screening for malignant neoplasm of colon COLORECTAL CANCER SCREENING DISCUSSION [facility] Start: 1965 Screening for malignant neoplasm of cervix CERVICAL CANCER SCREENING DISCUSSION [facility] Start: 1963 Third diphtheria, tetanus and acellular pertussis (DTaP) vaccination TDAP (ADULT) [facility] Start: 1963 Urine microalbumin profile DTaP,Tdap,Td Vaccine (1 - Tdap) [facility] Start: 1962 Annual PCP Team Chronic Disease Visit Annual PCP Team Chronic Disease Visit [facility] Start: 1962 Anxiety Screening Anxiety Screening [facility] Start: 1962 BP Controlled (<130/80) BP Controlled (<130/80) [facility] Start: 1962 Depression Screening Depression Screening [facility] Start: 1962 Tetanus vaccination TETANUS [facility] Start: 1950 Pneumococcal vaccination [facility] Start: 1944 Hepatitis C antibody, confirmatory test HEPATITIS C VIRUS SCREENING [facility] Start: 1944 Hepatitis C screening HEPATITIS C VIRUS SCREENING [facility] Start: 1944 Tetanus vaccination TETANUS [facility] CT Chest W contrast IV CT CHEST W IVCON Radiology Routine Schwannoma of nerve of chest 03/02/2024 11:46 AM EDT [facility] Work Phone: End: 04-02-2025 CT Chest WO contrast CT CHEST WO IVCON Radiology Routine Neoplasm of lung 1 Occurrences starting 03/03/2024 until 04/02/[address] [facility] Work Phone: Comment on above: 1 Occurrences starting 03/03/2024 until 04/02/2025 EXTRACTION EXTRACAPSULAR CATARACT W/ IMPLANT (ECCE IOL) EXTRACTION EXTRACAPSULAR CATARACT W/ IMPLANT (ECCE IOL) Nuclear sclerotic cataract of left eye [facility] End: 04-13-2025 Fundus photography w/interpretation & report FUNDUS PHOTOGRAPHY-OU WI - OFFICE PERFORMED IMAGING Routine Choroidal nevus of left eye Posterior vitreous detachment of left eye 10 Occurrences starting 04/20/2024 until 04/13/2025, 1 completed [facility] Comment on above: 10 Occurrences starting 04/20/2024 until 04/13/2025, 1 completed End: 03-03-2024 MG Breast - bilateral Screening [facility] Work Phone: Comment on above: 1 Occurrences starting 03/03/2024 until 03/03/2024 End: 05-24-2025 MR Cervical spine WO contrast MRI CERVICAL SPINE WO IVCON Radiology Routine Spinal stenosis of cervical region 1 Occurrences starting 04/24/2024 until 05/24/[address] [facility] Work Phone: Comment on above: 1 Occurrences starting 04/24/2024 until 05/24/2025 End: 01-25-2024 Optical coherence tomography of retina OCT/HRT MACULA OU [place] - OFFICE PERFORMED IMAGING Routine Choroidal nevus of left eye Epiretinal membrane (ERM) of right eye 6 Occurrences starting 02/11/2023 until 01/25/2024, 1 completed [facility] Comment on above: 6 Occurrences starting 02/11/2023 until 01/25/2024, 1 completed End: 04-13-2025 Optical coherence tomography of retina OCT/HRT [facility] [place] - OFFICE PERFORMED IMAGING Routine Choroidal nevus of left eye Posterior vitreous detachment of left eye 12 Occurrences starting 04/20/2024 until 04/13/2025, 1 completed [facility] Comment on above: 12 Occurrences starting 04/20/2024 until 04/13/2025, 1 completed End: 04-09-2025 Screening colonoscopy COLONOSCOPY SCREENING Endoscopy Routine History of rectal cancer 1 Occurrences starting 04/09/2024 until 04/09/[address] [facility] Work Phone: Comment on above: 1 Occurrences starting 04/09/2024 until 04/09/2025 [facility] Immun[facility] Immunization Date Immunization Notes Care Provider [facility] 10-12-2022 influenza virus vaccine, unspecified formulation Anh Epps MD Work Phone: [facility] 02-08-2021 COVID-19 original vaccine, age 12+ yr, monovalent (PFIZER-BIONTECH - PURPLE TOP) Ct (I-Stat) Work Phone: [facility] 01-18-2021 COVID-19 original vaccine, age 12+ yr, monovalent (PFIZER-BIONTECH - PURPLE TOP) Ct (I-Stat) Work Phone: [facility] 09-09-2020 influenza, injectabl e, quadrivalent, preservative free Ct (I-Stat) Work Phone: [facility] 09-06-2015 influenza, injectabl e, quadrivalent, contains preservative Ct (I-Stat) Work Phone: [facility] 10-07-2014 influenza, seasonal, injectable Ct (I-Stat) Work Phone: [facility] 08-18-2013 influenza, seasonal, injectable Ct (I-Stat) Work Phone: [facility] 09-12-2012 influenza, seasonal, injectable, preservative free Ct (I-Stat) Work Phone: [facility] 09-27-2009 novel [id number], preservative-free, injectable Ct (I-Stat) Work Phone: [facility] Payers Date Payer Category Payer Unknown [id number] 2012 Unknown [id number] 2012 Medicare [id number] 2012 Medicare [id number] 1945 Unknown [id number] 2.16. [id number] 1944 Unknown [id number] 2.16. [id number] 1944 Unknown [id number] 2.16. [id number] 1944 Unknown [id number] 2.16. [id number] 1944 Unknown [id number] 2.16. [id number] 1944 Unknown [id number] 2.16. [id number] 1944 Unknown [id number] 2.16. [id number] 1944 Unknown [id number] 2.16. [id number] 1944 Unknown [id number] 2.16. [id number] Medicare [id number] Unknown [id number] Social History Date Type Detail Facility Start: 04-24-2017 End: 11-22-2017 Tobacco smoking status NHIS Never smoked tobacco [facility] Start: 04-24-2017 End: 11-22-2017 Tobacco use and exposure Smokeless tobacco non-user [facility] Start: 02-15-2022 End: 04-21-2024 Alcohol intake Current non-drinker of alcohol (finding) [facility] Start: 11-14-2021 History SDOH Alcohol Comment 1 glass of wine 1-2 times per year [facility] Start: 1945 Sex Assigned At Not on file [facility] Start: 10-04-2021 End: 02-15-2022 Exposure to SARS-CoV-2 (event) Not sure [facility] Start: 10-29-2020 End: 09-20-2023 History of Social function [facility] Work Phone: Start: 10-29-2020 End: 09-20-2023 Tobacco use panel [facility] Work Phone: Start: 07-18-2020 Gender identity Identifies as female gender (finding) [facility] Start: 07-18-2020 Sexual orientation Heterosexual (kimmy ramirez) [facility] Start: 12-21-2020 End: 12-03-2023 Alcohol intake Current drinker of alcohol (finding) [facility] How hard is it for y ou to pay for the very basics like food, housing, medical care, and heating Not hard at all [facility] Work Phone: (I/We) worried timmy er (my/our) food would run out before (I/we) got money to buy more. Never true [facility] Work Phone: Start: 02-09-2016 Alcohol Comment rare [facility] Start: 1945 Sex Assigned At Female C [facility] Medical Equipment Procedure Code Equipment Code Equipment Origin al Text Equipment Identifier Dates Lens [id number] - [id number] FDA Start: 06-29-2015 Ring Capsular Tension Thk.15mm Reform Pmma 10-12.3mm Sterile - [id number] Start: 12-23-2023 Lens Iol Sy60wf.195 [place] Sy60wf.195 - [id number] Start: 12-23-2023 Graft Duragen Bovine Collagen Matrix 2x2in Soft Tissue Patch Resorbable - [id number] Start: 10-27-2020 [place] Oct Spinal System Contoured Nick 4mm X 55mm [id number] Start: 10-27-[address] Spnl Oc t [place] Ns Lf - [id number] Start: 10-27-2020 K2m [id number] Start: 10-27-2020 Comment on above: Description: [id number] SCREW [place] Oct Polyaxial Screw 4.5mm X 28mm [id number] Start: 10-27-2020 [place] Oct Spinal System Polyaxial Screw 4.5mm X 26mm [id number] Start: 10-27-2020 [place] Polyaxial Screw 4.5mm X 24mm [id number] Start: 10-27-2020 Clinical Notes 07-08-2019 to 06-23-2024 Telephone Encounter - Maggy Sharp PA-C - 06/23/2024 12:49 PM EDTTelephone Encounter - Maggy Sharp PA-C - 06/23/2024 12:49 PM EDTTelephone Encounter - Janice Santos - 06/15/2024 11:28 AM EDT Note Date & Type Note Facility 06-23-2024 Telephone encounter Note Called and spoke with patient. Consult order placed for Neurology, scheduled phone # provided. She will schedule Dr Soto had reviewed the MRI cervical spine, as per him: Cervical MRI looks fine, lets have her see neurology Maggy Sharp PA-C [facility] 06-23-2024 Miscellaneous Notes Called and spoke with patient. Consult order placed for Neurology, scheduled phone # provided. She will schedule Dr Soto had reviewed the MRI cervical spine, as per him: Cervical MRI looks fine, lets have her see neurology Maggy Sharp PA-C documented in this encounter [facility] 06-15-2024 Telephone encounter Note Patient called stating she has a colonoscopy Saturday but she is unable to drink all of the liquid she was told to drink. She stated she does not remember all the details. She is wondering if someone can call and answer a few questions and concerns about everything. Carolyne Camacho [facility] 06-15-2024 Miscellaneous Notes Patient called stating she has a colonoscopy Saturday but she is unable to drink all of the liquid she was told to drink. She stated she does not remember all the details. She is wondering if someone can call and answer a few questions and concerns about everything. Carolyne Camacho documented in this encounter [facility] 06-10-2024 History of Present illness Narrative Radiology Service Progress Note PATIENT NAME: Heidi Mtz DATE OF SERVICE: June 10, 2024 TIME: 8:47 AM PATIENT IDENTITY VERIFICATION COMPLETED USING TWO (2) IDENTIFIERS: Name and Date of confirmed by patient verbally. FALL SCREENING: Has the patient had 2 falls in the last year or 1 fall with injury or currently using an Ambulatory Assistive Device (Walker, Cane, Wheelchair, Crutches, etc.)? No PATIENT GENDER DATA: Female. status: : No status: NO. PATIENT RELEVANT IMPLANT DATA REVIEWED: Yes PATIENT PRESENTS WITH AN IMPLANTABLE OR ATTACHED ORDER MAKE UP CLERK: No RADIOLOGY DEPARTMENT: MR; Exam(s) Completed: Spine: Cervical spine PERIPHERAL IV DATA: Not applicable SIGNED BY: RUBIO Cardenas) June 10, 2024 8:47 AM documented in this encounter [facility] 06-10-2024 Note HNO ID: [id number] Author: AMI JUAREZ RT (R) Service: ? Author Type: Technologist Type: Progress Notes Filed: 06/10/2024 08:47 Note Text: Radiology Service Progress Note PATIENT NAME: Heidi Mtz DATE OF SERVICE: June 10, 2024 TIME: 8:47 AM PATIENT IDENTITY VERIFICATION COMPLETED USING TWO (2) IDENTIFIERS: Name and Date of confirmed by patient verbally. FALL SCREENING: Has the patient had 2 falls in the last year or 1 fall with injury or currently using an Ambulatory Assistive Device (Walker, Cane, Wheelchair, Crutches, etc.)? No PATIENT GENDER DATA: Female. status: : No status: NO. PATIENT RELEVANT IMPLANT DATA REVIEWED: Yes PATIENT PRESENTS WITH AN IMPLANTABLE OR ATTACHED ORDER MAKE UP CLERK: No RADIOLOGY DEPARTMENT: MR; Exam(s) Completed: Spine: Cervical spine PERIPHERAL IV DATA: Not applicable SIGNED BY: RUBIO Cardenas) June 10, 2024 8:47 AM [facility] 04-24-2024 Note HNO ID: [id number] Author: CELIA SOTO MD Service: ? Author Type: Physician Type: Progress Notes Filed: 04/24/2024 17:49 Note Text: SPINE SURGERY FOLLOW UP This is a virtual visit using [employer] Video Visit. It required patient-provider interaction for the medical decision making as documented below. I have communicated my name and active licensure. The patient's identity and physical location were verified at the time of this visit. Either the patient or their legal direct customer service representative has been informed of the risks and benefits of -- and alternatives to -- treatment through a remote evaluation and consents to proceed with the evaluation remotely. SERVICE DATE: 04/24/2024 SURGERY DATE: 10/27/2020 Heidi Mtz is seen for 4 year post operative follow up. doing well from surgery Has d/o feeling her hands are weak, diminished fine motor coordination and worsening balance over the last 1-2 years ANTIPLATELET OR ANTICOAGULATION STATUS: No Patient Entered Questionnaires 03/31/2021 11/02/2021 04/20/2024 Spine Questions Pain Location: Neck Arm None, my primary complaint is not pain-related Pain Duration: 1-3 months 6 months - 1 year Pain over last 6 months: Less than half the days in the past 6 months Symptoms from neck/cervical spine: Yes No No Employment Status: Retired Retired Retired Involved in law suit/legal claim: No No No 11/02/2021 Spine Red Flags Any type of cancer: Yes Unexplained fever: No Bowel or bladder disfunction: No Unintentional weight loss: No Osteoporosis: Yes 11/08/2020 03/31/2021 Neck Questionnaires Benzel Modified BRIANNA Score 14 (Moderate Myelopathy Symptoms) 15 (Mild Myelopathy Symptoms) PROMIS Score Percentiles 03/31/2021 11/02/2021 04/20/2024 Physical Health Physical Function Percentile 16* 46 18* Sleep Percentile 12 54 21* Fatigue Percentile 24* 58 31 Pain Interference Percentile 18* 27* 03/31/2021 11/02/2021 04/20/2024 PROMIS SOCIAL ROLE SCORE Social Role Satisfaction Percentile 7 86 58 03/31/2021 11/02/2021 04/20/2024 PROMIS Global Health Scale Physical Health Percentile 15 41 41 Mental Health Percentile 34 53 34 Percentiles provide an indication of how the patient's score ranks in relation to the general population. Higher percentile rankings indicate better function/quality of life. 50th percentile is the average of the general population and indicates half of respondents had a worse score. Descriptive Summary for PROMIS Physical Function T-score = 41 (Percentile 18) Much difficulty - Do 2 hours of physical labor. Some difficulty - Walk more than a mile (1.6 km). Depression Screenin03/31/2021 11/02/2021 04/20/2024 PHQ-9 Score 6 3 4 03/31/2021 11/02/2021 04/20/2024 PHQ-9 Self-harm Question Question 9 Not at all Not at all Not at all PHQ-9 Self-Harm (Item 9) response options: 0 Not at all 1 Several days 2 More than half the days 3 Nearly every day PHQ-9 Levels: 0-4 No to mild depression 5-9 Mild depression 10-14 Moderate depression 15-19 Moderately severe depression 20-27 Severe depression PHYSICAL EXAM: There were no vitals taken for this visit. GENERAL APPEARANCE: Well nourished, well developed, and no apparent distress. NEURO PSYCH: Patient oriented to person, place, and time. Mood pleasant. Benign affect. MUSCULOSKELETAL VISUAL INSPECTION CERVICAL: WNL THORACIC: WNL LUMBAR: WNL DATA REVIEW [facility] records independently reviewed ASSESSMENT/PLAN (M47.12) Cervical spondylosis with myelopathy (primary encounter diagnosis) (M48.02) Spinal stenosis of cervical region Bilateral hand weakness, gait instability, hip flexor weakness concerning for cervical myelopathy. Will order C-spine MRI Heidi Mtz has a condition that requires further workup. 1. Imaging: Cervical MRI Without Contrast Symptoms of neuro deficit or red flag symptoms listed in HPI 2. Follow up: Following above Imaging Ordered: For possible Cervical Myelopathy due to presence of red flags detailed in HPI and impaired manual dexterity. I spent a total of 24 minutes on the date of the service which included preparing to see the patient, [id number] patient care, completing clinical documentation, obtaining and/or reviewing separately obtained history, and ordering medications, tests, or procedures. SIGNATURE: Celia Soto MD PATIENT NAME: Heidi Mtz DATE: April 24, 2024 TIME: 2:50 PM PAGER: [facility] 04-24-2024 History of Present illness Narrative Images from the original note were not included. SPINE SURGERY FOLLOW UP This is a virtual visit using [employer] Video Visit. It required patient-provider interaction for the medical decision making as documented below. I have communicated my name and active licensure. The patient's identity and physical location were verified at the time of this visit. Either the patient or their legal direct customer service representative has been informed of the risks and benefits of -- and alternatives to -- treatment through a remote evaluation and consents to proceed with the evaluation remotely. SERVICE DATE: 04/24/2024 SURGERY DATE: 10/27/2020 Heidi Mtz is seen for 4 year post operative follow up. doing well from surgery Has d/o feeling her hands are weak, diminished fine motor coordination and worsening balance over the last 1-2 years ANTIPLATELET OR ANTICOAGULATION STATUS: No Patient Entered Questionnaires 03/31/2021 11/02/2021 04/20/2024 Spine Questions Pain Location: Neck Arm None, my primary complaint is not pain-related Pain Duration: 1-3 months 6 months - 1 year Pain over last 6 months: Less than half the days in the past 6 months Symptoms from neck/cervical spine: Yes No No Employment Status: Retired Retired Retired Involved in law suit/legal claim: No No No 11/02/2021 Spine Red Flags Any type of cancer: Yes Unexplained fever: No Bowel or bladder disfunction: No Unintentional weight loss: No Osteoporosis: Yes 11/08/2020 03/31/2021 Neck Questionnaires Benzel Modified BRIANNA Score 14 (Moderate Myelopathy Symptoms) 15 (Mild Myelopathy Symptoms) PROMIS Score Percentiles 03/31/2021 11/02/2021 04/20/2024 Physical Health Physical Function Percentile 16* 46 18* Sleep Percentile 12 54 21* Fatigue Percentile 24* 58 31 Pain Interference Percentile 18* 27* 03/31/2021 11/02/2021 04/20/2024 PROMIS SOCIAL ROLE SCORE Social Role Satisfaction Percentile 7 86 58 03/31/2021 11/02/2021 04/20/2024 PROMIS Global Health Scale Physical Health Percentile 15 41 41 Mental Health Percentile 34 53 34 Percentiles provide an indication of how the patient's score ranks in relation to the general population. Higher percentile rankings indicate better function/quality of life. 50th percentile is the average of the general population and indicates half of respondents had a worse score. Descriptive Summary for PROMIS Physical Function T-score = 41 (Percentile 18) Much difficulty - Do 2 hours of physical labor. Some difficulty - Walk more than a mile (1.6 km). Depression Screenin03/31/2021 11/02/2021 04/20/2024 PHQ-9 Score 6 3 4 03/31/2021 11/02/2021 04/20/2024 PHQ-9 Self-harm Question Question 9 Not at all Not at all Not at all PHQ-9 Self-Harm (Item 9) response options: 0 Not at all 1 Several days 2 More than half the days 3 Nearly every day PHQ-9 Levels: 0-4 No to mild depression 5-9 Mild depression 10-14 Moderate depression 15-19 Moderately severe depression 20-27 Severe depression PHYSICAL EXAM: There were no vitals taken for this visit. GENERAL APPEARANCE: Well nourished, well developed, and no apparent distress. NEURO PSYCH: Patient oriented to person, place, and time. Mood pleasant. Benign affect. MUSCULOSKELETAL VISUAL INSPECTION CERVICAL: WNL THORACIC: WNL LUMBAR: WNL DATA REVIEW [facility] records independently reviewed ASSESSMENT/PLAN (M47.12) Cervical spondylosis with myelopathy (primary encounter diagnosis) (M48.02) Spinal stenosis of cervical region Bilateral hand weakness, gait instability, hip flexor weakness concerning for cervical myelopathy. Will order C-spine MRI Heidi Mtz has a condition that requires further workup. 1. Imaging: Cervical MRI Without Contrast Symptoms of neuro deficit or red flag symptoms listed in HPI 2. Follow up: Following above Imaging Ordered: For possible Cervical Myelopathy due to presence of red flags detailed in HPI and impaired manual dexterity. I spent a total of 24 minutes on the date of the service which included preparing to see the patient, [id number] patient care, completing clinical documentation, obtaining and/or reviewing separately obtained history, and ordering medications, tests, or procedures. SIGNATURE: Celia Soto MD PATIENT NAME: Heidi Mtz DATE: April 24, 2024 TIME: 2:50 PM PAGER: documented in this encounter [facility] 04-22-2024 Note Procedure date: 04/21. Ultrasound findings were a mass Lesion One Longitudinal & Transverse Measurements Lesion one longitudinal base measurement is 2.79 mm. Lesion one longitudinal height is 0.30 mm. Lesion one transverse base measurement is 2.44 mm. Lesion one transverse height measurement is 0.30 mm. [facility] 04-22-2024 Note Procedure date: 04/21. Ultrasound findings were a mass Lesion One Longitudinal & Transverse Measurements Lesion one longitudinal base measurement is 2.79 mm. Lesion one longitudinal height is 0.30 mm. Lesion one transverse base measurement is 2.44 mm. Lesion one transverse height measurement is 0.30 mm. ORDEROUT 04-21-2024 Note Procedure date: 04/21. Right Eye Hazy. Disc findings include normal observations. Vessel findings include normal. Macula findings include RPE mottling. Interval change is same. Recommendation for management is to observe. Left Eye Soliz ring. Disc findings include normal observations. Vessel findings include normal. Macula findings include nevus, RPE mottling. Nevus. Interval change is same. Recommendation for management is to observe. [facility] 04-21-2024 Note Procedure date: 04/21. Right Eye Quality was good. Findings include abnormal foveal contour. Interval change is same. Recommendation for management is to observe. Left Eye Quality was good. Findings include normal observations. Interval change is same. Recommendation for management is to observe. [facility] 04-21-2024 Note Procedure date: 04/21. Right Eye Hazy. Disc findings include normal observations. Vessel findings include normal. Macula findings include RPE mottling. Interval change is same. Recommendation for management is to observe. Left Eye Soliz ring. Disc findings include normal observations. Vessel findings include normal. Macula findings include nevus, RPE mottling. Nevus. Interval change is same. Recommendation for management is to observe. ORDEROUT 04-21-2024 Note Procedure date: 04/21. Right Eye Quality was good. Findings include abnormal foveal contour. Interval change is same. Recommendation for management is to observe. Left Eye Quality was good. Findings include normal observations. Interval change is same. Recommendation for management is to observe. ORDEROUT 04-21-2024 History of Present illness Narrative Chief Complaint Patient presents with Blurred Vision HPI 78 y.o. female presents today for 3 month follow up with POH of s/p Phacoemulsification with intraocular Lens implant and CTR for zonular weakness Left eye (12/23/2023, Choroidal Nevus Left eye Patient states that her vision is good both eyes. Patient will be getting glasses as soon as the frame comes in. Patient has had more floaters than usual but unsure which eye. Patient denies flashes of light, eye pain or ocular discomfort in either eye. Ocular Meds: Artificial tears PRN OU Last edited by Krystyna Giron MA on 04/21/2024 12:46 PM. Referring Doctor: Dr. Barton Structural Steel Equipment Erector: Dr. Osman Kan O.D. [id number] [place] [address] Assessment: - Was Moving to [facility] - Goal -2.00 - Getting new Rx at local optom - Very Happy w vision s/p YAG Right Eye (01/04/2021) T: Diam: 7.31; Ht: 0.59 L: Diam: 6.80; Ht: 0.68 (01/04/2022) T: Diam: 7.91; Ht: 0.61 L: Diam: 6.84; Ht: 0.75 (02/14/2023) T: Diam: 2.46; Ht: 0.97 L: Diam: 2.80; Ht: 0.75 Refraction Manifest Sphere Cylinder [place] Add Dist [place] Right Left #. Choroidal Nevus Left Eye - Slight elevation, even coloring, distinct border, small (0.5DD), 3 DD from [facility] within S/T arcade - No fluorescence on FAF - Reports many basal cell carcinomas on head - Squamous cell carcinomas on back and waistline - Hx of rectal cancer - Discussed referral to Dr. Blair for evaluation if any changes noted - Documented since 2010 (appears stable when compared with documentation) - (12/23/2018) Observe Left Eye; stable - (12/25/2019) Observe Left Eye; stable - (12/29/2020) Bscan done today - (12/29/2020) Observe Left Eye; Images Stable - (01/04/2022) Observe Left Eye, Imaging and exam stable, 1 year - (02/14/2023) Observe, stable on imaging and exam - Longitudinal: 2.80 Base 0.75 Height -- Transverse: 2.46 Base 0.97 Height - (04/21/2024) Observe Left eye, stable on imaging and exam - Longitudinal: 2.79 Base 0.30 Height -- Transverse: 2.44 Base 0.30 Height #) s/p Phacoemulsification with intraocular Lens implant and CTR for zonular weakness Left eye (12/23/2023) - Westley [id number] 19.50 diopter (-2.72) - (04/21/2024) lens in good position. #. 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 In addition her vision is blurred in both eyes. - (01/04/2022) Repair by Dr. Grey - Patient happy #. s/p PEM/IOL/IVT Right Eye for Cataract Right Eye (Goal is -2.00; Hx of ERM) (06/29/2015) - [id number] 20.00 (-2.54) - (10/22/2016) s/p Yag Right Eye #. PVD Left Eye - No evidence of retinal detachment - No evidence of holes or tears by examination - Reviewed signs of retinal detachment including flashes, floaters, and loss of peripheral visual field - Return to clinic immediately with vision changes #. s/p 25gPPV/MP/ILM peel for ERM Right Eye (02/24/14) - Retina flat, blunted contour - VAcc Right Eye 20/20 #. s/p Yag Right Eye (10/22/2016) I, Adore Hummel, WONG acted as a scribe for Anh Epps MD for this note of 04/21/2024 1:30 PM. I have reviewed the dictated documentation as scribed by Adore Hummel, and it accurately reflects the work performed and the decisions made. Anh Epps MD I saw and independently examined this patient today. I discussed my findings and the therapeutic plan with the patient. I agree with the history, physical examination, and medical decisions as outlined. I have reviewed the documentation and it accurately reflects the work performed and the decisions made. NEXT VISIT ORDERS Tropicamide 1% 1 drop both eyes Phenylephrine 2.5% 1 drop to both eyes Elliott applanation: Both Eye OCT Macula: Both Eyes Photo and Red Free Left Eye (Nevus-Optos) B-scan nevus Left Eye (due January 2025) Follow-up 12 months REASON FOR VISIT Heidi Mtz presents to clinic today for a Follow-Up Patient visit. HISTORY OF PRESENT ILLNESS HPI 78 y.o. female presents today for 3 month follow up with POH of s/p Phacoemulsification with intraocular Lens implant and CTR for zonular weakness Left eye (12/23/2023, Choroidal Nevus Left eye Patient states that her vision is good both eyes. Patient will be getting glasses as soon as the frame comes in. Patient has had more floaters than usual but unsure which eye. Patient denies flashes of light, eye pain or ocular discomfort in either eye. Ocular Meds: Artificial tears PRN OU Last edited by Krystyna Giron MA on 04/21/2024 12:46 PM. Allergies, medications & history reviewed & updated by Krystyna Giron MA REVIEW OF SYSTEMS Review of Systems 10 minutes of face to face time was spent with patient performing the production line technician work of this visit. Referring Physician: documented in this encounter [facility] 04-09-2024 Instructions Emery Newton MD - 04/09/2024 11:40 AM EDT Images from the original note were not included. Bowel Preparation Instructions for: Miralax-Gatorade Preparations IF YOU DO NOT FOLLOW THESE DIRECTIONS, YOUR COLONOSCOPY WILL BE CANCELLED. Maxwell Instructions: Your bowel must be empty so that your doctor can clearly view your colon. Follow all of the instructions in this handout EXACTLY as they are written. Do NOT eat any solid food the ENTIRE day before your colonoscopy. Buy your bowel preparation at least 5 days before your colonoscopy. Four (4) Dulcolax laxative tablets containing 5mg of bisacodyl each (NOT Dulcolax stool softener) One (1) 8.3oz. bottle Miralax (238 grams) or generic equivalent 2 x 32oz. Bottles of Gatorade (NOT RED) Diabetic Patients: Use G2 (Gatorade 2) TRANSPORTATION on the Day of Your Exam A responsible adult MUST be present with you at Check In prior to your colonoscopy and REMAIN in the endoscopy area until you are discharged. You are NOT ALLOWED to drive, take a taxi or bus, or leave the Endoscopy Center ALONE. If you do not have a responsible regional owner operator truck driver (family member or friend) with you to take you home, your exam cannot be done with sedation and will be cancelled. Please bring a list of all of your current medications, including any Vdae-ejj-[id number] medications with you. Medications If you take insulin, diabetic medications or blood thinners such as Coumadin (warfarin), Plavix (clopidogrel), Ticlid (ticlopidine hydrochloride), Agrylin (anagrelide), Xarelto (Rivaroxaban), Pradaxa (Dabigatran), Eliquis (Apixaban), and Effient (Prasugrel). You MUST call the doctors who orders those medicines for instructions on altering the dosage before your colonoscopy. All other medications should be taken the day of the exam with a sip of water including ASPIRIN. Five (5) Days Before Your Colonoscopy Do NOT take medicines that stop diarrhea - such as Imodium, Kaopectate, or Pepto Bismol. Do NOT take fiber supplements - such as Metamucil, Citrucel, or Perdiem. Do NOT take products that contain iron - such as multi-vitamins (the label lists what is in the products). Three (3) Days Before Your Colonoscopy Do NOT eat high-fiber foods - such as popcorn, beans, seeds (flax, sunflower, quinoa), multigrain bread, nuts, salad/vegetables, or fresh and dried fruit. 1 Bowel Preparation Instructions for: Miralax-Gatorade Preparations One (1) Day Before Your Colonoscopy Only drink clear liquids the ENTIRE DAY before your colonoscopy. Do NOT eat any solid foods. Drink at least 8 ounces of clear liquids every hour after waking up. The clear liquids you can drink include: Clear Liquid (NO RED LIQUIDS) DO NOT DRINK Gatorade, Pedialyte or Powerade Clear broth or bouillon Coffee or tea (no milk or non-dairy creamer) Carbonated and non-carbonated soft drinks Kiet-Aid or other fruit flavored drinks Strained fruit juices (no pulp) Jell-O, popsicles, hard candy Water Alcohol Milk or non-dairy creamers Noodles or vegetables in soup Juice with pulp Liquid you cannot see through Do not use tobacco/vaping products Mix 1/2 of Miralax bottle (119 grams) in each 32 ounces of Gatorade bottle until dissolved. Keep cool in the refrigerator. DO NOT ADD ICE. The bowel preparation solution will be consumed in two parts. Part 1 5:00 PM - Evening before your colonoscopy Take 4 Dulcolax tablets. 6 PM - Evening before your colonoscopy Drink 32 oz. of the mixed solution. Drink an 8 oz. glass of bowel preparation every 15 minutes for a total of 4 glasses. Fifteen (15) minutes later, drink an 8 oz. glass of of clear liquids every 15 minutes for a total of 2 glasses. You may continue to drink clear liquids till midnight. Part 2 On the day of your colonoscopy you may drink clear liquids up to (three) 3 hours prior to procedure. 4 1/2 hours before your colonoscopy Take another 32 oz. bottle of mixed solution. Drink an 8 oz. glass of bowel prep every 15 minutes for a total of 4 glasses. Fifteen (15) minutes later, drink an 8 oz. glass of clear liquids every 15 minutes for a total of 2 glasses. You may continue to drink clear liquids up to (three) 3 hours before your exam. 2 10/2019 documented in this encounter [facility] 04-09-2024 History and physical note Images from the original note were not included. COLORECTAL SURGERY New Patient Visit April 09, 2024 New Pt former Pt DX: Surgery/Procedure 08/24/20 Colonoscopy Findings: The digital rectal examinations via stoma but able to accomodate small finger. No stricture at stoma. There was evidence of a prior surgical anastomosis in the ascending colon. The anastomosis was traversed. Biopsies were taken with a cold forceps for histology. The terminal ileum appeared normal. Impression: - Several sharp angulations in colon but no strictures. Likley related to adhesions in the pelvis. - Surgical anastomosis with some eythema. Biopsied. - The examined portion of the ileum was normal. Clinical Notes 07/18/20 Office Visit Chief Complaint: Establish follow up History of Present Illness: Heidi Mtz is a 74 year old year old female with h/o rectal cancer, s/p FEB 1997, then in 1997 underwent an exlap for EDUIN for recurrent small bowel obstruction and placement of a g-tube, and in 05/1998 went back to OR at which time she got strictureplasties. Since that time, Her last colonoscopy in [address] Dave and no polyps were found. Has chronic bowel obstructions, last hospitalized about 5 years ago in [place]. However in the last 2 months, she feels like she's had 3 obstructions with crampy pain, nausea and vomiting and decreased ostomy output. She resolves this herself by making herself nothing by mouth and will take a laxative and that will usually resolve it usually in a day or 2. On average she thinks she has 5 episodes of bowel obstructions a year. She is mainly here to establish care as Dr. Dave is no longer available especially because she requires anesthesia for her colonoscopies Assessment and Plan: Heidi Mtz is a 74 year old female with history of rectal cancer s/p APR in 1996 and recurrent bowel obstructions previous underwent 2 exlaps during which time she got stricturplasties. She's here to establish care for her surveillance colonoscopies as she requires anesthesia for them. She has recurrent bowel obstructions but they have always resolved on their own. - Will refer her to Dr. Hardy for colonoscopy under [place] IMPRESSION: Heidi Mtz is a 74 year old s/p remote APR / adjuvant XRT now with recurrent psbo - manages conservatively. Here to establish care and arrange colostomy. PLAN: will refer to Dr. Vilchis for colonoscopy under [place] with a peds scope. 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 She states that she feels that she gets obstructed once in a month or every other month, she did not need to be hospitalized for these episodes, after she vomits the symptoms resolve in 1-2 days, ostomy working well now, today denies any obstructive symptoms Never been in the hospital for this. Stops eating and it goes away. She will throw up and then intestines start working. Tries to avoid heavy eating or rice, beef or other roughage or dry foods Assessment 71 year old female with h/o rectal cancer, s/p FEB 1997, lat colonoscopy in 2012 RECOMMENDATION 71yo F s/p APER for rectal cancer for colonoscopy in OR due to tortuous colon ET care Chief Complaint: chronic SBOs History of Present Illness: Heidi Mtz is a 78 year old year old female with complex history as above including APR for rectal cancer and recurrent SBOs requiring surgical and endoscopic interventions. Since 2019 she's been doing ok, but has had some obstructive episodes that she self manages. She can feel an obstruction starting and then self-regulates with decreased PO intake, and milk of mag and dulcolax. These types of episodes have happened 3-5 times a year. Otherwise she eats well with regular stoma output and her weight is stable. The stoma is patent and working but she feels it's looking wrinkly. However it is still protruding and productive. No bagging issues. PAST MEDICAL HISTORY Diagnosis Date Basal cell cancer scalp Bowel obstruction (HCC) due to adhesions GERD (gastroesophageal reflux disease) Hypertension Mass of right lung Rectal cancer (HCC) s/p resection with ostomy, XRT/chemo Schwannoma at T1-T2 Squamous carcinoma back, removed in 2012 PAST SURGICAL HISTORY Procedure Laterality Date PAST SURGICAL HISTORY OF , , colon surgeries PAST SURGICAL HISTORY OF 1969 adhesions d/t endometriosis PAST SURGICAL HISTORY OF 1996 postabdominoperineal resection on May 25, 1997 PAST SURGICAL HISTORY OF skin cancer removals, BCCs and SCCs, 18 removals TOTAL ABDOMINAL HYSTERECT W/WO RMVL TUBE OVARY 1982 Hysterectomy, JONI Current Outpatient Medications Medication Sig Dispense Refill magnesium hydroxide (MOM) 400 mg/5 mL suspension Take 30 mL by mouth once daily as needed for Constipation. hydroCHLOROthiazide (HYDRODIURIL, ESIDRIX) 25 mg tablet Take 12.5-25 mg by mouth once daily. acetaminophen (TYLENOL EXTRA STRENGTH) 500 mg tablet Take 500 mg by mouth every 8 hours as needed for Pain. cyanocobalamin (VITAMIN B-12) 1,000 mcg tab Take 1,000 mcg by mouth once daily. Cholecalciferol, Vitamin D3, 1,000 unit cap Take 1,000 Units by mouth once daily. diphenhydrAMINE (BENADRYL) 25 mg tablet Take 25 mg by mouth every 6 hours as needed for Itching/Rash. fluticasone (FLONASE) 50 mcg/actuation nasal spray Use 2 Sprays in each nostril once daily as needed for Cold/Allergy Symptoms. Docusate Sodium 100 mg Tab Take 2 tablets by mouth once daily. CALCIUM CARBONATE (TUMS ORAL) Take 1 tablet by mouth as needed (GERD). MULTIVITAMIN TABLET Take one(1) tablet daily. 0 No current facility-administered medications for this visit. ALLERGIES Allergen Reactions Doxycycline GI Upset pt states GI system shut down Levaquin [Levofloxa* Intolerance Joint/muscle pain Lisinopril Swelling Swelling in legs Mupirocin Other: See Comments Skin irritation. Allergy confirmed by testing. Neosporin [Neomycin* Other: See Comments Skin reaction. Allergy confirmed by testing. Norvasc [Amlodipine* Swelling Lower extremity swelling Penicillins Rash Tramadol Mental Status Change Zantac [Ranitidine * Other: See Comments Dizziness Review of Systems / PACC screen: Do you have difficulty climbing a full flight of stairs without feeling short of breath? no Do you require oxygen for your breathing or have your gone to an emergency department because of breathing problems? no Are you on dialysis or have you been told that your kidneys do not work well as they should? no Do have an implanted cardiac device (pacemaker, defibrillator etc.) that has not been checked in the last 6 months? no Have you had an organ transplant? no Have you been told that you had excessive bleeding during surgical procedures or do you take blood thinning medications other than aspirin? no Have you ever had a heart attack, heart stents/surgery, valve problems, or other heart problems? no Have you had a stroke, seizures, or unexplained loss of consciousness? no Do you have a neurologic condition like Parkinson's disease or multiple sclerosis? no Have you or a blood relative had a life-threatening reaction to anesthesia? no Do you have cirrhosis of the liver or other liver disease? no Have you had a blood clot within the past year? no Do you take insulin or other injections for diabetes? no Do you have sleep apnea or have you been told you may have sleep apnea? no Do you have other implanted devices (deep brain stimulator, spinal cord stimulator, etc.)? no Physical Exam: There were no vitals taken for this visit. General Appearance: Well appearing, alert, in no acute distress, well-hydrated, well nourished. Lungs: Lungs clear to auscultation. No wheezing, rhonchi, rales. Heart: RRR without murmur, gallop, or rubs. No ectopy Edema: no Abdomen: Normal abdominal exam, Abdomen soft, non-tender. Bowel sounds normal. No masses, organomegaly. Stoma in place, pink, protruding, healthy. Assessment Medical Decision Making: Assessment & Diagnosis: Heidi Mtz is a 78 year old female with history of rectal cancer s/p APR in 1996 followed by chemoradiation and recurrent bowel obstructions, previously underwent 2 exlaps during which time she got stricturoplasties. Last colonoscopy 2019 was clear. We discussed that she has the option of no longer undergoing colonoscopies however she is interested in continuing surveillance. Data Reviewed: Tests & Documents Reviewed/ordered: Review of prior notes from [facility] Review of Procedures / Tests: Colonoscopy I have independently interpreted: n/a I have discussed Heidi Mtz's treatment plan and/or results with the patient. Treatment plan: - Surveillance colonoscopy via stoma with Dr. Hardy (this can be her last screening colonoscopy) Colorectal Surgery Risk of morbidity, mortality and/or complications of treatment plan: Emery Ashley MD [employer] STAFF PHYSICIAN NOTE OF PERSONAL INVOLVEMENT IN CARE I have reviewed the history and physical exam obtained and documented by the fellow and I personally participated in the maxwell components. I have confirmed and edited as necessary, the PFSH and ROS obtained by others. I have discussed the case and management of the patient's care. The following comments revise or confirm relevant maxwell components of the note. IMPRESSION: Heidi Mtz is a 78 year old PLAN: Emery Mercer MD has accurately documented our encounter which we discussed and real-time and my recommendations were scribed. I spent a total of 60 minutes on the date of the service which included preparing to see the patient, [id number] patient care, completing clinical documentation, obtaining and/or reviewing separately obtained history, performing a medically appropriate examination, counseling and educating the patient/family/caregiver, ordering medications, tests, or procedures, communicating with other HCPs (not separately reported), independently interpreting results (not separately reported), communicating results to the patient/family/caregiver, and care coordination (not separately reported). CC No primary care provider on file. Charles Pathak MD, MS, FACS, FASCRS Inflammatory Bowel Disease Surgery Section Director of Research, Department of Colorectal Surgery Digestive Disease & Surgery [place] [facility] [address] [place] [address] [facility] Work Phone: 04-09-2024 History and physical note Images from the original note were not included. COLORECTAL SURGERY New Patient Visit April 09, 2024 New Pt former Pt DX: Surgery/Procedure 08/24/20 Colonoscopy Findings: The digital rectal examinations via stoma but able to accomodate small finger. No stricture at stoma. There was evidence of a prior surgical anastomosis in the ascending colon. The anastomosis was traversed. Biopsies were taken with a cold forceps for histology. The terminal ileum appeared normal. Impression: - Several sharp angulations in colon but no strictures. Likley related to adhesions in the pelvis. - Surgical anastomosis with some eythema. Biopsied. - The examined portion of the ileum was normal. Clinical Notes 07/18/20 Office Visit Chief Complaint: Establish follow up History of Present Illness: Heidi Mtz is a 74 year old year old female with h/o rectal cancer, s/p FEB 1997, then in 1997 underwent an exlap for EDUIN for recurrent small bowel obstruction and placement of a g-tube, and in 05/1998 went back to OR at which time she got strictureplasties. Since that time, Her last colonoscopy in [address] Dave and no polyps were found. Has chronic bowel obstructions, last hospitalized about 5 years ago in [place]. However in the last 2 months, she feels like she's had 3 obstructions with crampy pain, nausea and vomiting and decreased ostomy output. She resolves this herself by making herself nothing by mouth and will take a laxative and that will usually resolve it usually in a day or 2. On average she thinks she has 5 episodes of bowel obstructions a year. She is mainly here to establish care as Dr. Dave is no longer available especially because she requires anesthesia for her colonoscopies Assessment and Plan: Heidi Mtz is a 74 year old female with history of rectal cancer s/p APR in 1996 and recurrent bowel obstructions previous underwent 2 exlaps during which time she got stricturplasties. She's here to establish care for her surveillance colonoscopies as she requires anesthesia for them. She has recurrent bowel obstructions but they have always resolved on their own. - Will refer her to Dr. Hardy for colonoscopy under [place] IMPRESSION: Heidi Mtz is a 74 year old s/p remote APR / adjuvant XRT now with recurrent psbo - manages conservatively. Here to establish care and arrange colostomy. PLAN: will refer to Dr. Vilchis for colonoscopy under [place] with a peds scope. 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 She states that she feels that she gets obstructed once in a month or every other month, she did not need to be hospitalized for these episodes, after she vomits the symptoms resolve in 1-2 days, ostomy working well now, today denies any obstructive symptoms Never been in the hospital for this. Stops eating and it goes away. She will throw up and then intestines start working. Tries to avoid heavy eating or rice, beef or other roughage or dry foods Assessment 71 year old female with h/o rectal cancer, s/p FEB 1997, lat colonoscopy in 2013 RECOMMENDATION 71yo F s/p APER for rectal cancer for colonoscopy in OR due to tortuous colon ET care Chief Complaint: chronic SBOs History of Present Illness: Heidi Mtz is a 78 year old year old female with complex history as above including APR for rectal cancer and recurrent SBOs requiring surgical and endoscopic interventions. Since 2019 she's been doing ok, but has had some obstructive episodes that she self manages. She can feel an obstruction starting and then self-regulates with decreased PO intake, and milk of mag and dulcolax. These types of episodes have happened 3-5 times a year. Otherwise she eats well with regular stoma output and her weight is stable. The stoma is patent and working but she feels it's looking wrinkly. However it is still protruding and productive. No bagging issues. PAST MEDICAL HISTORY Diagnosis Date Basal cell cancer scalp Bowel obstruction (HCC) due to adhesions GERD (gastroesophageal reflux disease) Hypertension Mass of right lung Rectal cancer (HCC) s/p resection with ostomy, XRT/chemo Schwannoma at T1-T2 Squamous carcinoma back, removed in 2012 PAST SURGICAL HISTORY Procedure Laterality Date PAST SURGICAL HISTORY OF , , colon surgeries PAST SURGICAL HISTORY OF 1969 adhesions d/t endometriosis PAST SURGICAL HISTORY OF 1996 postabdominoperineal resection on May 25, 1997 PAST SURGICAL HISTORY OF skin cancer removals, BCCs and SCCs, 18 removals TOTAL ABDOMINAL HYSTERECT W/WO RMVL TUBE OVARY 1982 Hysterectomy, JONI Current Outpatient Medications Medication Sig Dispense Refill magnesium hydroxide (MOM) 400 mg/5 mL suspension Take 30 mL by mouth once daily as needed for Constipation. hydroCHLOROthiazide (HYDRODIURIL, ESIDRIX) 25 mg tablet Take 12.5-25 mg by mouth once daily. acetaminophen (TYLENOL EXTRA STRENGTH) 500 mg tablet Take 500 mg by mouth every 8 hours as needed for Pain. cyanocobalamin (VITAMIN B-12) 1,000 mcg tab Take 1,000 mcg by mouth once daily. Cholecalciferol, Vitamin D3, 1,000 unit cap Take 1,000 Units by mouth once daily. diphenhydrAMINE (BENADRYL) 25 mg tablet Take 25 mg by mouth every 6 hours as needed for Itching/Rash. fluticasone (FLONASE) 50 mcg/actuation nasal spray Use 2 Sprays in each nostril once daily as needed for Cold/Allergy Symptoms. Docusate Sodium 100 mg Tab Take 2 tablets by mouth once daily. CALCIUM CARBONATE (TUMS ORAL) Take 1 tablet by mouth as needed (GERD). MULTIVITAMIN TABLET Take one(1) tablet daily. 0 No current facility-administered medications for this visit. ALLERGIES Allergen Reactions Doxycycline GI Upset pt states GI system shut down Levaquin [Levofloxa* Intolerance Joint/muscle pain Lisinopril Swelling Swelling in legs Mupirocin Other: See Comments Skin irritation. Allergy confirmed by testing. Neosporin [Neomycin* Other: See Comments Skin reaction. Allergy confirmed by testing. Norvasc [Amlodipine* Swelling Lower extremity swelling Penicillins Rash Tramadol Mental Status Change Zantac [Ranitidine * Other: See Comments Dizziness Review of Systems / PACC screen: Do you have difficulty climbing a full flight of stairs without feeling short of breath? no Do you require oxygen for your breathing or have your gone to an emergency department because of breathing problems? no Are you on dialysis or have you been told that your kidneys do not work well as they should? no Do have an implanted cardiac device (pacemaker, defibrillator etc.) that has not been checked in the last 6 months? no Have you had an organ transplant? no Have you been told that you had excessive bleeding during surgical procedures or do you take blood thinning medications other than aspirin? no Have you ever had a heart attack, heart stents/surgery, valve problems, or other heart problems? no Have you had a stroke, seizures, or unexplained loss of consciousness? no Do you have a neurologic condition like Parkinson's disease or multiple sclerosis? no Have you or a blood relative had a life-threatening reaction to anesthesia? no Do you have cirrhosis of the liver or other liver disease? no Have you had a blood clot within the past year? no Do you take insulin or other injections for diabetes? no Do you have sleep apnea or have you been told you may have sleep apnea? no Do you have other implanted devices (deep brain stimulator, spinal cord stimulator, etc.)? no Physical Exam: There were no vitals taken for this visit. General Appearance: Well appearing, alert, in no acute distress, well-hydrated, well nourished. Lungs: Lungs clear to auscultation. No wheezing, rhonchi, rales. Heart: RRR without murmur, gallop, or rubs. No ectopy Edema: no Abdomen: Normal abdominal exam, Abdomen soft, non-tender. Bowel sounds normal. No masses, organomegaly. Stoma in place, pink, protruding, healthy. Assessment Medical Decision Making: Assessment & Diagnosis: Heidi Mtz is a 78 year old female with history of rectal cancer s/p APR in 1996 followed by chemoradiation and recurrent bowel obstructions, previously underwent 2 exlaps during which time she got stricturoplasties. Last colonoscopy 2020 was clear. We discussed that she has the option of no longer undergoing colonoscopies however she is interested in continuing surveillance. Data Reviewed: Tests & Documents Reviewed/ordered: Review of prior notes from [facility] Review of Procedures / Tests: Colonoscopy I have independently interpreted: n/a I have discussed Heidi Mtz's treatment plan and/or results with the patient. Treatment plan: - Surveillance colonoscopy via stoma with Dr. Hardy (this can be her last screening colonoscopy) Colorectal Surgery Risk of morbidity, mortality and/or complications of treatment plan: Emery Ashley MD [employer] STAFF PHYSICIAN NOTE OF PERSONAL INVOLVEMENT IN CARE I have reviewed the history and physical exam obtained and documented by the fellow and I personally participated in the maxwell components. I have confirmed and edited as necessary, the PFSH and ROS obtained by others. I have discussed the case and management of the patient's care. The following comments revise or confirm relevant maxwell components of the note. IMPRESSION: Heidi Mtz is a 78 year old PLAN: Emery Mercer MD has accurately documented our encounter which we discussed and real-time and my recommendations were scribed. I spent a total of 60 minutes on the date of the service which included preparing to see the patient, [id number] patient care, completing clinical documentation, obtaining and/or reviewing separately obtained history, performing a medically appropriate examination, counseling and educating the patient/family/caregiver, ordering medications, tests, or procedures, communicating with other HCPs (not separately reported), independently interpreting results (not separately reported), communicating results to the patient/family/caregiver, and care coordination (not separately reported). CC No primary care provider on file. Charles Pathak MD, MS, FACS, FASCRS Inflammatory Bowel Disease Surgery Section Director of Research, Department of Colorectal Surgery Digestive Disease & Surgery [place] [facility] [address] [place], [place] [address]. [address] [place], [place] [id number] documented in this encounter [facility] 04-08-2024 Nurse Note New Pt former Pt DX: Surgery/Procedure 08/24/20 Colonoscopy Findings: The digital rectal examinations via stoma but able to accomodate small finger. No stricture at stoma. There was evidence of a prior surgical anastomosis in the ascending colon. The anastomosis was traversed. Biopsies were taken with a cold forceps for histology. The terminal ileum appeared normal. Impression: - Several sharp angulations in colon but no strictures. Likley related to adhesions in the pelvis. - Surgical anastomosis with some eythema. Biopsied. - The examined portion of the ileum was normal. Clinical Notes 07/18/20 Office Visit Chief Complaint: Establish follow up History of Present Illness: Heidi Mtz is a 74 year old year old female with h/o rectal cancer, s/p FEB 1997, then in 1997 underwent an exlap for EDUIN for recurrent small bowel obstruction and placement of a g-tube, and in 05/1998 went back to OR at which time she got strictureplasties. Since that time, Her last colonoscopy in [address] Dave and no polyps were found. Has chronic bowel obstructions, last hospitalized about 5 years ago in [place]. However in the last 2 months, she feels like she's had 3 obstructions with crampy pain, nausea and vomiting and decreased ostomy output. She resolves this herself by making herself nothing by mouth and will take a laxative and that will usually resolve it usually in a day or 2. On average she thinks she has 5 episodes of bowel obstructions a year. She is mainly here to establish care as Dr. Dave is no longer available especially because she requires anesthesia for her colonoscopies Assessment and Plan: Heidi Mtz is a 74 year old female with history of rectal cancer s/p APR in 1996 and recurrent bowel obstructions previous underwent 2 exlaps during which time she got stricturplasties. She's here to establish care for her surveillance colonoscopies as she requires anesthesia for them. She has recurrent bowel obstructions but they have always resolved on their own. - Will refer her to Dr. Hardy for colonoscopy under [place] IMPRESSION: Heidi Mtz is a 74 year old s/p remote APR / adjuvant XRT now with recurrent psbo - manages conservatively. Here to establish care and arrange colostomy. PLAN: will refer to Dr. Vilchis for colonoscopy under [place] with a peds scope. 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 She states that she feels that she gets obstructed once in a month or every other month, she did not need to be hospitalized for these episodes, after she vomits the symptoms resolve in 1-2 days, ostomy working well now, today denies any obstructive symptoms Never been in the hospital for this. Stops eating and it goes away. She will throw up and then intestines start working. Tries to avoid heavy eating or rice, beef or other roughage or dry foods Assessment 71 year old female with h/o rectal cancer, s/p FEB 1997, lat colonoscopy in 2012 RECOMMENDATION 71yo F s/p APER for rectal cancer for colonoscopy in OR due to tortuous colon ET care [facility] 04-08-2024 Nurse Note New Pt former Pt DX: Surgery/Procedure 08/24/20 Colonoscopy Findings: The digital rectal examinations via stoma but able to accomodate small finger. No stricture at stoma. There was evidence of a prior surgical anastomosis in the ascending colon. The anastomosis was traversed. Biopsies were taken with a cold forceps for histology. The terminal ileum appeared normal. Impression: - Several sharp angulations in colon but no strictures. Likley related to adhesions in the pelvis. - Surgical anastomosis with some eythema. Biopsied. - The examined portion of the ileum was normal. Clinical Notes 07/18/20 Office Visit Chief Complaint: Establish follow up History of Present Illness: Heidi Mtz is a 74 year old year old female with h/o rectal cancer, s/p FEB 1997, then in 1997 underwent an exlap for EDUIN for recurrent small bowel obstruction and placement of a g-tube, and in 05/1998 went back to OR at which time she got strictureplasties. Since that time, Her last colonoscopy in [address] Dave and no polyps were found. Has chronic bowel obstructions, last hospitalized about 5 years ago in [place]. However in the last 2 months, she feels like she's had 3 obstructions with crampy pain, nausea and vomiting and decreased ostomy output. She resolves this herself by making herself nothing by mouth and will take a laxative and that will usually resolve it usually in a day or 2. On average she thinks she has 5 episodes of bowel obstructions a year. She is mainly here to establish care as Dr. Dave is no longer available especially because she requires anesthesia for her colonoscopies Assessment and Plan: Heidi Mtz is a 74 year old female with history of rectal cancer s/p APR in 1996 and recurrent bowel obstructions previous underwent 2 exlaps during which time she got stricturplasties. She's here to establish care for her surveillance colonoscopies as she requires anesthesia for them. She has recurrent bowel obstructions but they have always resolved on their own. - Will refer her to Dr. Hardy for colonoscopy under [place] IMPRESSION: Heidi Mtz is a 74 year old s/p remote APR / adjuvant XRT now with recurrent psbo - manages conservatively. Here to establish care and arrange colostomy. PLAN: will refer to Dr. Vilchis for colonoscopy under [place] with a peds scope. 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 She states that she feels that she gets obstructed once in a month or every other month, she did not need to be hospitalized for these episodes, after she vomits the symptoms resolve in 1-2 days, ostomy working well now, today denies any obstructive symptoms Never been in the hospital for this. Stops eating and it goes away. She will throw up and then intestines start working. Tries to avoid heavy eating or rice, beef or other roughage or dry foods Assessment 71 year old female with h/o rectal cancer, s/p FEB 1997, lat colonoscopy in 2012 RECOMMENDATION 71yo F s/p APER for rectal cancer for colonoscopy in OR due to tortuous colon ET care documented in this encounter [facility] 03-03-2024 Note HNO ID: [id number] Author: UZMA HOLGUIN APRN.CNP Service: ? Author Type: Nurse Practitioner Type: Progress Notes Filed: 03/03/2024 18:38 Note Text: Heart, Vascular AND Thoracic [place] Department of Thoracic Surgery TELEPHONE VISIT (audio only) PROGRESS NOTE This is a telephone encounter initiated for an established patient. The patient, parent or guardian is not originating from a related Evaluation AND Management service provided within the previous 7 days nor leading to an Evaluation AND Management service or procedure within the next 24 hours or soonest available appointment. I have communicated my name and active licensure. The patient's identity and physical location were verified at the time of this visit. Either the patient or their legal direct customer service representative has been informed of the risks and benefits of -- and alternatives to -- treatment through a remote evaluation and consents to proceed with the evaluation remotely. Heidi Mtz has consented to this telephone encounter. Persons Present: patient Total Time Spent: 21-30 minutes Uzma Holguin APRN.[place] Part of this note was copied from previous note, all content has been individually reviewed, updated as necessary, and thoroughly reviewed. [facility] - OUTPATIENT THORACIC SURGERY CLINIC NOTE PT NAME: Heidi Mtz CLINIC NO: [id number] THORACIC SURGEON: Brandee Feliz M.D. DATE OF SERVICE: 03/03/2024 PRINCIPAL DX: Schwannoma SURGICAL HX: 10/27/2020: KRISHNANEY- Neurosurg T1-T3 posterior segmental instrumentation ([place]), T1-T3 posterolateral arthrodesis with local bone autograft, T1, T2, T3 right-sided costotransversectomy and extracavitary approach for resection and separation of spinal/paraspinal mass, use of operating microscope, use of intraoperative navigation, use of intraoperative neuromonitoring. 10/31/2020: Robotic-assisted resection of superior sulcus/thoracic inlet mass with mediastinum. Surgical Pathology: FINAL DIAGNOSIS 1. Mediastinal mass with superior and inferior margins, excisions (A-C) - Schwannoma. - Resection margins are negative for tumor. REASON FOR VISIT: CT Surveillance HPI: Heidi Mtz is a 78 year old female with a symptomatic large posterior mediastinal paraspinal mass with intra-foraminal extension, scheduled for second portion of staged procedure with Dr. Feliz on 10/31/20. First incidental discovered paraspinal mass with no symptoms. Met with thoracic surgery, decision made to observe. Over time, developed numbness in R arm, SOB, and back pain. Imaging with interval growth. Pain with staged/combined resection with neurosurgery. On 10/27/20, underwent T1-T4 posterior instrumented fusion, allograft. T2 laminectomy with pedicle takedown and separation of tumor with Dr Soto. On 10/31/2020 Dr Feliz performed a Robotic-assisted resection of superior sulcus/thoracic inlet mass with mediastinum. There were no vitals taken for this visit. 97.8 lbs REVIEW OF SYSTEMS GENERAL: No weight loss, malaise or fevers RESPIRATORY: Cough; sinus drainage GI: No nausea, vomiting, or diarrhea IMAGING/TESTS: CT Chest 03/02/2024: INTERVAL HISTORY: Ms Mtz is phoned today following CT scan of the chest that she had done yesterday. She has been doing well. She states that she has had some sinus drainage of late that has had her coughing. Otherwise doing well. No back pain. She states she has noted some heart palpitations at times when she is cutting her grass. She will discuss with her PCP. CT scan shows no evidence of new or recurrent disease. Previously seen LLL nodule has resolved. She will return in [address] chest. IMPRESSION: 78 year old female s/p Robotic-assisted resection of superior sulcus/thoracic inlet mass with mediastinum 10/31/[address] Feliz for schwannoma. DUARTE PLAN: - CT chest in 2 years at [place], [facility] next day Uzma Holguin APRN.[facility] 03-03-2024 History of Present illness Narrative Heart, Vascular & Thoracic [place] Department of Thoracic Surgery TELEPHONE VISIT (audio only) PROGRESS NOTE This is a telephone encounter initiated for an established patient. The patient, parent or guardian is not originating from a related Evaluation & Management service provided within the previous 7 days nor leading to an Evaluation & Management service or procedure within the next 24 hours or soonest available appointment. I have communicated my name and active licensure. The patient's identity and physical location were verified at the time of this visit. Either the patient or their legal direct customer service representative has been informed of the risks and benefits of -- and alternatives to -- treatment through a remote evaluation and consents to proceed with the evaluation remotely. Heidi Mtz has consented to this telephone encounter. Persons Present: patient Total Time Spent: 21-30 minutes Uzma Holguin APRN.PIANO REGULATOR Part of this note was copied from previous note, all content has been individually reviewed, updated as necessary, and thoroughly reviewed. [facility] - OUTPATIENT THORACIC SURGERY CLINIC NOTE PT NAME: Heidi Mtz CLINIC NO: [id number] THORACIC SURGEON: Brandee Feliz M.D. DATE OF SERVICE: 03/03/2024 PRINCIPAL DX: Schwannoma SURGICAL HX: 10/27/2020: JASON- Neurosurg T1-T3 posterior segmental instrumentation ([place]), T1-T3 posterolateral arthrodesis with local bone autograft, T1, T2, T3 right-sided costotransversectomy and extracavitary approach for resection and separation of spinal/paraspinal mass, use of operating microscope, use of intraoperative navigation, use of intraoperative neuromonitoring. 10/31/2020: Robotic-assisted resection of superior sulcus/thoracic inlet mass with mediastinum. Surgical Pathology: FINAL DIAGNOSIS 1. Mediastinal mass with superior and inferior margins, excisions (A-C) - Schwannoma. - Resection margins are negative for tumor. REASON FOR VISIT: CT Surveillance HPI: Heidi Mtz is a 78 year old female with a symptomatic large posterior mediastinal paraspinal mass with intra-foraminal extension, scheduled for second portion of staged procedure with Dr. Feliz on 10/31/20. First incidental discovered paraspinal mass with no symptoms. Met with thoracic surgery, decision made to observe. Over time, developed numbness in R arm, SOB, and back pain. Imaging with interval growth. Pain with staged/combined resection with neurosurgery. On 10/27/20, underwent T1-T4 posterior instrumented fusion, allograft. T2 laminectomy with pedicle takedown and separation of tumor with Dr Soto. On 10/31/2020 Dr Feliz performed a Robotic-assisted resection of superior sulcus/thoracic inlet mass with mediastinum. There were no vitals taken for this visit. 97.8 lbs REVIEW OF SYSTEMS GENERAL: No weight loss, malaise or fevers RESPIRATORY: Cough; sinus drainage GI: No nausea, vomiting, or diarrhea IMAGING/TESTS: CT Chest 03/02/2024: INTERVAL HISTORY: Ms Mtz is phoned today following CT scan of the chest that she had done yesterday. She has been doing well. She states that she has had some sinus drainage of late that has had her coughing. Otherwise doing well. No back pain. She states she has noted some heart palpitations at times when she is cutting her grass. She will discuss with her PCP. CT scan shows no evidence of new or recurrent disease. Previously seen LLL nodule has resolved. She will return in [address] chest. IMPRESSION: 78 year old female s/p Robotic-assisted resection of superior sulcus/thoracic inlet mass with mediastinum 10/31/[address] Feliz for schwannoma. DUARTE PLAN: - CT chest in 2 years at [place], next day Uzma Holguin APRN.PIANO REGULATOR documented in this encounter [facility] 03-03-2024 History of Present illness Narrative Patient offered a medical structural steel equipment erector for sensitive exam. Pt declined documented in this encounter [facility] 03-02-2024 History of Present illness Narrative Radiology Service Progress Note DATE OF SERVICE: March 02, 2024 TIME: 2:59 PM PATIENT IDENTITY VERIFICATION COMPLETED USING TWO (2) STANDARD IDENTIFIERS: Name and Date of confirmed by patient verbally. FALL SCREENING: Has the patient had 2 falls in the last year or 1 fall with injury or currently using an Ambulatory Assistive Device (Walker, Cane, Wheelchair, Crutches, etc.)? No PATIENT GENDER DATA: Female. status: : No status: NO. PATIENT RELEVANT IMPLANT DATA REVIEWED: Yes PATIENT PRESENTS WITH AN IMPLANTABLE OR ATTACHED ORDER MAKE UP CLERK: No ALLERGIES: Reviewed and unchanged CONTRAST ALLERGY: NO. EXAM: CT -CONTRAST INDUCED NEPHROPATHY RISK FACTORS: Patient age > 60 years CREATININE: Creatinine Date Value Ref Range Status 02/24/2024 0.75 0.58 - 0.96 mg/dL Final 11/19/2023 0.88 0.58 - 0.96 mg/dL Final 02/08/2022 0.76 0.58 - 0.96 mg/dL Final Estimated Glomerular Filtration Rate Date Value Ref Range Status 02/24/2024 81 >=60 mL/min/1.73m Final Comment: Estimated Glomerular Filtration Rate (eGFR) is calculated using the 2020 CKD-EPI creatinine equation. This equation utilizes serum creatinine, sex, and age as parameters. The creatinine assay has traceable calibration to isotope dilution-mass spectrometry. Refer to KDIGO guidelines for clinical interpretation. In patients with unstable renal function, e.g. those with acute kidney injury, the eGFR may not accurately reflect actual GFR. eGFR- (POCT) Date Value Ref Range Status 11/10/2021 >60 mL/min/1.73 m2 Final P.O.C.T. RESULTS: POC done: Yes, See Lab Tab March 02, 2024 TREATMENT: N/A PERIPHERAL IV DATA: Ambulatory: A peripheral IV was started in the Left antecubital site with a Angio cath: 22 gauge. RADIOLOGY DEPARTMENT: CT; Exam(s) Completed: Chest SIGNATURE: RUBIO Gutierrez) PATIENT NAME: Heidi Mtz DATE: March 02, 2024 TIME: 2:59 PM documented in this encounter [facility] 03-02-2024 Note HNO ID: [id number] Author: RADHA DO RT (R) Service: ? Author Type: Adjunct Physical Education Instructor Type: Progress Notes Filed: 03/02/2024 15:00 Note Text: Radiology Service Progress Note DATE OF SERVICE: March 02, 2024 TIME: 2:59 PM PATIENT IDENTITY VERIFICATION COMPLETED USING TWO (2) STANDARD IDENTIFIERS: Name and Date of confirmed by patient verbally. FALL SCREENING: Has the patient had 2 falls in the last year or 1 fall with injury or currently using an Ambulatory Assistive Device (Walker, Cane, Wheelchair, Crutches, etc.)? No PATIENT GENDER DATA: Female. status: : No status: NO. PATIENT RELEVANT IMPLANT DATA REVIEWED: Yes PATIENT PRESENTS WITH AN IMPLANTABLE OR ATTACHED ORDER MAKE UP CLERK: No ALLERGIES: Reviewed and unchanged CONTRAST ALLERGY: NO. EXAM: CT -CONTRAST INDUCED NEPHROPATHY RISK FACTORS: Patient age > 60 years CREATININE: Creatinine Date Value Ref Range Status 02/24/2024 0.75 0.58 - 0.96 mg/dL Final 11/19/2023 0.88 0.58 - 0.96 mg/dL Final 02/08/2022 0.76 0.58 - 0.96 mg/dL Final Estimated Glomerular Filtration Rate Date Value Ref Range Status 02/24/2024 81 >=60 mL/min/1.73m? Final Comment: Estimated Glomerular Filtration Rate (eGFR) is calculated using the 2020 CKD-EPI creatinine equation. This equation utilizes serum creatinine, sex, and age as parameters. The creatinine assay has traceable calibration to isotope dilution-mass spectrometry. Refer to KDIGO guidelines for clinical interpretation. In patients with unstable renal function, e.g. those with acute kidney injury, the eGFR may not accurately reflect actual GFR. eGFR- (POCT) Date Value Ref Range Status 11/10/2021 >60 mL/min/1.73 m2 Final P.O.C.T. RESULTS: POC done: Yes, See Lab Tab March 02, 2024 TREATMENT: N/A PERIPHERAL IV DATA: Ambulatory: A peripheral IV was started in the Left antecubital site with a Angio cath: 22 gauge. RADIOLOGY DEPARTMENT: CT; Exam(s) Completed: Chest SIGNATURE: RT Brenda(R) PATIENT NAME: Heidi Mtz DATE: March 02, 2024 TIME: 2:59 PM [facility] 01-21-2024 History of Present illness Narrative Chief Complaint Patient presents with Post Op Visit Blurred Vision HPI Heidi Mtz, a 78 y.o. female is present today for 1 month s/p Phacoemulsification with intraocular lens implant and CTR left eye (12/23/23). Asked about problems with loss of vision, glare, eye pain/irritation, flashes of light, floaters, excessive tearing, redness and discharge. Pt said vision OU is doing great! Pt said the left eye is not as clear but the stickiness she was having has gone away. Pt said about 3 weeks ago she noticed a little more floaters OU but feels like they have improved some. CURRENT OCULAR MEDICATIONS/TREATMENTS: No drops used at this time. Last edited by Ruddy Pfeiffer on 01/21/2024 1:18 PM. Referring Doctor: Dr. Barton Structural Steel Equipment Erector: Dr. Osman Kan O.D. [address] [place] [address] Assessment: - Was Moving to [facility] - Goal -2.00 - Getting new Rx at local optom - Very Happy w vision s/p YAG Right Eye (01/04/2021) T: Diam: 7.31; Ht: 0.59 L: Diam: 6.80; Ht: 0.68 (01/04/2022) T: Diam: 7.91; Ht: 0.61 L: Diam: 6.84; Ht: 0.75 (02/14/2023) T: Diam: 2.46; Ht: 0.97 L: Diam: 2.80; Ht: 0.75 Refraction Manifest Sphere Cylinder [place] Add Dist VA Right -3.75 +1.25 091 +2.50 20/20 Left -3.00 +0.25 078 +2.50 20/20 #) s/p Phacoemulsification with intraocular Lens implant and CTR for zonular weakness Left eye (12/23/2023) - [place]ley SY60WF 19.50 diopter (-2.72) - Doing well - IOP 22, will monitor - Ofloxacin 1 drop 4 times a day in the operative eye. Pred Forte 1 drop 4 times a day in the operative eye - Eye shield at the bedtime. No bending over or heavy lifting - (12/24/2023) corneal edema with CTR; slightly elevated IOP - (12/31/2023) Retina Flat. IOP good. No signs of infection - Stop Ofloxacin. Start PF taper 3,2,1 - Bending/Lifting restrictions for the first six weeks. RD precautions d/w patient at length - (01/03/2024) Add-on for blur and morning discharge left eye: no signs of infection. Vertical fold of cornea. Reviewed lens may have moved some forward, to back though grossly in good position. Can do HVF if she would like further exploration. - No swelling. Use Artificial tears for comfort. Warnings to call reviewed - No retinal issue to explain changes; no significant vf change - (01/21/2024) lens in good position. - ok to update glasses with manager non profit. #. Choroidal Nevus Left Eye - Slight elevation, even coloring, distinct border, small (0.5DD), 3 DD from [facility] within S/T arcade - No fluorescence on FAF - Reports many basal cell carcinomas on head - Squamous cell carcinomas on back and waistline - Hx of rectal cancer - Discussed referral to Dr. Blair for evaluation if any changes noted - Documented since 2010 (appears stable when compared with documentation) - (12/23/2018) Observe Left Eye; stable - (12/25/2019) Observe Left Eye; stable - (12/29/2020) Bscan done today - (12/29/2020) Observe Left Eye; Images Stable - (01/04/2022) Observe Left Eye, Imaging and exam stable, 1 year - (02/14/2023) Observe, stable on imaging and exam #. 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 In addition her vision is blurred in both eyes. - (01/04/2022) Repair by Dr. Grey - Patient happy #. s/p PEM/IOL/IVT Right Eye for Cataract Right Eye (Goal is -2.00; Hx of ERM) (06/29/2015) - AU00T0 20.00 (-2.54) - (10/22/2016) s/p Yag Right Eye - Doing well #. PVD Left Eye - No evidence of retinal detachment - No evidence of holes or tears by examination - Reviewed signs of retinal detachment including flashes, floaters, and loss of peripheral visual field - Return to clinic immediately with vision changes #. s/p 25gPPV/MP/ILM peel for ERM Right Eye (02/24/14) - Retina flat, blunted contour - VAcc Right Eye 20/20 #. s/p Yag Right Eye (10/22/2016) I, Adore Hummel, COA acted as a scribe for Anh Epps MD for this note of 01/21/2024 2:00 PM. I have reviewed the dictated documentation as scribed by Adore Hummel, and it accurately reflects the work performed and the decisions made. Anh Epps MD I saw and independently examined this patient today. I discussed my findings and the therapeutic plan with the patient. I agree with the history, physical examination, and medical decisions as outlined. I have reviewed the documentation and it accurately reflects the work performed and the decisions made. NEXT VISIT ORDERS Tropicamide 1% 1 drop both eyes Phenylephrine 2.5% 1 drop to both eyes Elliott applanation: Both Eyes OCT Macula: Both Eyes Photo and Red Free Left Eye (Nevus-Optos) B-scan nevus Left Eye (due January 2024) Follow-up 3 months REASON FOR VISIT Heidi Mtz presents to clinic today for a Post-Op Patient visit. Chief Complaint Post Op Visit; Blurred Vision HISTORY OF PRESENT ILLNESS HPI Heidi Mtz, a 78 y.o. female is present today for 1 month s/p Phacoemulsification with intraocular lens implant and CTR left eye (12/23/23). Asked about problems with loss of vision, glare, eye pain/irritation, flashes of light, floaters, excessive tearing, redness and discharge. Pt said vision OU is doing great! Pt said the left eye is not as clear but the stickiness she was having has gone away. Pt said about 3 weeks ago she noticed a little more floaters OU but feels like they have improved some. CURRENT OCULAR MEDICATIONS/TREATMENTS: No drops used at this time. Last edited by Ruddy Pfeiffer on 01/21/2024 1:18 PM. Allergies, medications & history reviewed & updated by Ruddy Pfeiffer REVIEW OF SYSTEMS Review of Systems 15 minutes of face to face time was spent with patient performing the production line technician work of this visit. documented in this encounter [facility] 01-03-2024 History of Present illness Narrative REASON FOR VISIT Heidi Mtz, 78 y.o. female presents to clinic today for a Post-Op Patient visit. Chief Complaint Blurred Vision; Post Op Visit HISTORY OF PRESENT ILLNESS HPI Heidi Mtz, a 78 y.o. female is present today as a post op patient for sticky left eye and foggy vision that started this AM. The patient presents 11 days s/p Phacoemulsification with intraocular Lens implant and CTR left eye (12-23-2023). Pt states that she woke up and her vision was foggy and felt like it was mattered over OS onlt. Pt washed her faces and got crust out of the left eye. Pt states that the fog is currently in a ring and centrally things are clear OS only. CURRENT OCULAR MEDICATIONS/TREATMENTS: PF QID OS Last edited by Holli Luis on 01/03/2024 1:38 PM. Allergies, medications & history reviewed & updated by Holli Luis NO REVIEW OF SYSTEMS PERFORMED DUE TO 90 DAY POST-OP PERIOD. >15+ minutes face to face production line technician time spent with patient. Chief Complaint Patient presents with Blurred Vision Post Op Visit HPI Heidi Mtz, a 78 y.o. female is present today as a post op patient for sticky left eye and foggy vision that started this AM. The patient presents 11 days s/p Phacoemulsification with intraocular Lens implant and CTR left eye (12-23-2023). Pt states that she woke up and her vision was foggy and felt like it was mattered over OS onlt. Pt washed her faces and got crust out of the left eye. Pt states that the fog is currently in a ring and centrally things are clear OS only. CURRENT OCULAR MEDICATIONS/TREATMENTS: PF QID OS Last edited by Holli Luis on 01/03/2024 1:38 PM. Referring Doctor: Dr. Barton Structural Steel Equipment Erector: Dr. Osman Kan O.D. [address] [place] [address] [place] [address] Assessment: - Was Moving to [facility] - Goal -2.00 - Getting new Rx at local optom - Very Happy w vision s/p YAG Right Eye (01/04/2021) T: Diam: 7.31; Ht: 0.59 L: Diam: 6.80; Ht: 0.68 (01/04/2022) T: Diam: 7.91; Ht: 0.61 L: Diam: 6.84; Ht: 0.75 (02/14/2023) T: Diam: 2.46; Ht: 0.97 L: Diam: 2.80; Ht: 0.75 #) s/p Phacoemulsification with intraocular Lens implant and CTR for zonular weakness Left eye (12/23/2023) - [place] SY60WF 19.50 diopter (-2.72) - Doing well - IOP 22, will monitor - Ofloxacin 1 drop 4 times a day in the operative eye - Pred Forte 1 drop 4 times a day in the operative eye - Eye shield at the bedtime - No bending over or heavy lifting - (12/24/2023) corneal edema with CTR; slightly elevated IOP - (12/31/2023) - Retina Flat - IOP good - No signs of infection - Stop Ofloxacin - Start PF taper 3,2,1 - Bending/Lifting restrictions for the first six weeks - RD precautions d/w patient at length - (01/03/2024) Add-on for blur and morning discharge left eye: no signs of infection. Vertical fold of cornea. Reviewed lens may have moved some forward, to back though grossly in good position. Can do HVF if she would like further exploration. - No swelling. Use Artificial tears for comfort. Warnings to call reviewed - No retinal issue to explain changes; no significant vf change #. Choroidal Nevus Left Eye - Slight elevation, even coloring, distinct border, small (0.5DD), 3 DD from [facility] within S[facility]T arcade - No fluorescence on FAF - Reports many basal cell carcinomas on head - Squamous cell carcinomas on back and waistline - Hx of rectal cancer - Discussed referral to Dr. Blair for evaluation if any changes noted - Documented since 2010 (appears stable when compared with documentation) - (12/23/2018) Observe Left Eye; stable - (12/25/2019) Observe Left Eye; stable - (12/29/2020) Bscan done today - (12/29/2020) Observe Left Eye; Images Stable - (01/04/2022) Observe Left Eye, Imaging and exam stable, 1 year - (02/14/2023) Observe, stable on imaging and exam #. 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 In addition her vision is blurred in both eyes. - (01/04/2022) Repair by Dr. Grey - Patient happy #. s/p PEM/IOL/IVT Right Eye for Cataract Right Eye (Goal is -2.00; Hx of ERM) (06/29/2015) - AU00T0 20.00 (-2.54) - (10/22/2016) s/p Yag Right Eye - Doing well #. PVD Left Eye - No evidence of retinal detachment - No evidence of holes or tears by examination - Reviewed signs of retinal detachment including flashes, floaters, and loss of peripheral visual field - Return to clinic immediately with vision changes #. s/p 25gPPV/MP/ILM peel for ERM Right Eye (02/24/14) - Retina flat, blunted contour - VAcc Right Eye 20/20 #. s/p Yag Right Eye (10/22/2016) I, WONG Beal acted as a scribe for Anh Epps MD for this note of 01/03/2024 2:30 PM. I have reviewed the dictated documentation as scribed by Adore Hummel, and it accurately reflects the work performed and the decisions made. Anh Epps MD I saw and independently examined this patient today. I discussed my findings and the therapeutic plan with the patient. I agree with the history, physical examination, and medical decisions as outlined. I have reviewed the documentation and it accurately reflects the work performed and the decisions made. NEXT VISIT ORDERS Tropicamide 1% 1 drop Left Eye Phenylephrine 2.5% 1 drop to Left Eye Elliott applanation: Both Eyes OCT Macula: Both Eyes Photo and Red Free Left Eye (Nevus-Optos) B-scan nevus Left Eye (due January 2024) Follow-up As scheduled for post op Auto/Mrx documented in this encounter [facility] 12-31-2023 History of Present illness Narrative Chief Complaint Patient presents with Post Op Visit HPI 1 week s/p Phacoemulsification with intraocular Lens implant and CTR left eye (12-23-2023) She reports the vision is improving and feels a little scratchy and sticky. Pred forte qid LEFT EYE Ofloxacin qid LEFT EYE Last edited by India Giraldo on 12/31/2023 1:22 PM. Referring Doctor: Dr. Barton Structural Steel Equipment Erector: Dr. Osman Kan O.D. [address] [place] [address] Assessment: - Was Moving to [facility] - Goal -2.00 - Getting new Rx at local optom - Very Happy w vision s/p YAG Right Eye (01/04/2021) T: Diam: 7.31; Ht: 0.59 L: Diam: 6.80; Ht: 0.68 (01/04/2022) T: Diam: 7.91; Ht: 0.61 L: Diam: 6.84; Ht: 0.75 (02/14/2023) T: Diam: 2.46; Ht: 0.97 L: Diam: 2.80; Ht: 0.75 #) s/p Phacoemulsification with intraocular Lens implant and CTR for zonular weakness Left eye (12/23/2023) - Westley SY60WF 19.50 diopter (-2.72) - Doing well - IOP 22, will monitor - Ofloxacin 1 drop 4 times a day in the operative eye - Pred Forte 1 drop 4 times a day in the operative eye - Eye shield at the bedtime - No bending over or heavy lifting - (12/24/2023) corneal edema with CTR; slightly elevated IOP - (12/31/2023) - Retina Flat - IOP good - No signs of infection - Stop Ofloxacin - Start PF taper 3,2,1 - Bending/Lifting restrictions for the first six weeks - RD precautions d/w patient at length #. Choroidal Nevus Left Eye - Slight elevation, even coloring, distinct border, small (0.5DD), 3 DD from [facility] within S/T arcade - No fluorescence on FAF - Reports many basal cell carcinomas on head - Squamous cell carcinomas on back and waistline - Hx of rectal cancer - Discussed referral to Dr. Blair for evaluation if any changes noted - Documented since 2010 (appears stable when compared with documentation) - (12/23/2018) Observe Left Eye; stable - (12/25/2019) Observe Left Eye; stable - (12/29/2020) Bscan done today - (12/29/2020) Observe Left Eye; Images Stable - (01/04/2022) Observe Left Eye, Imaging and exam stable, 1 year - (02/14/2023) Observe, stable on imaging and exam #. 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 In addition her vision is blurred in both eyes. - (01/04/2022) Repair by Dr. Grey - Patient happy #. s/p PEM/IOL/IVT Right Eye for Cataract Right Eye (Goal is -2.00; Hx of ERM) (06/29/2015) - AU00T0 20.00 (-2.54) - (10/22/2016) s/p Yag Right Eye - Doing well #. PVD Left Eye - No evidence of retinal detachment - No evidence of holes or tears by examination - Reviewed signs of retinal detachment including flashes, floaters, and loss of peripheral visual field - Return to clinic immediately with vision changes #. s/p 25gPPV/MP/ILM peel for ERM Right Eye (02/24/14) - Retina flat, blunted contour - VAcc Right Eye 20/20 #. s/p Yag Right Eye (10/22/2016) I, Adore Hummel, WONG acted as a scribe for Anh Epps MD for this note of 12/31/2023 1:36 PM. I have reviewed the dictated documentation as scribed by Adore Hummel, and it accurately reflects the work performed and the decisions made. Anh Epps MD I saw and independently examined this patient today. I discussed my findings and the therapeutic plan with the patient. I agree with the history, physical examination, and medical decisions as outlined. I have reviewed the documentation and it accurately reflects the work performed and the decisions made. NEXT VISIT ORDERS Tropicamide 1% 1 drop Left Eye Phenylephrine 2.5% 1 drop to Left Eye Elliott applanation: Both Eyes OCT Macula: Both Eyes Photo and Red Free Left Eye (Nevus-Optos) B-scan nevus Left Eye (due January 2024) Follow-up As scheduled for post op Auto/Mrx REASON FOR VISIT Heidi Mtz presents to clinic today for a Post-Op Patient visit. Chief Complaint Post Op Visit HISTORY OF PRESENT ILLNESS HPI 1 week s/p Phacoemulsification with intraocular Lens implant and CTR left eye (12-23-2023) Last edited by India Giraldo on 12/31/2023 1:17 PM. 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 Referring Physician: documented in this encounter [facility] 12-03-2023 Note HNO ID: [id number] Author: UZMA HOLGUIN APRN.PIANO REGULATOR Service: ? Author Type: Nurse Practitioner Type: Progress Notes Filed: 12/03/2023 16:02 Note Text: Part of this note was copied from previous note, all content has been individually reviewed, updated as necessary, and thoroughly reviewed. [facility] - OUTPATIENT THORACIC SURGERY CLINIC NOTE PT NAME: Heidi Mtz CLINIC NO: [id number] THORACIC SURGEON: Brandee Feliz M.D. DATE OF SERVICE: 12/03/2023 PRINCIPAL DX: Schwannoma SURGICAL HX: 10/27/2020: KRISHNANEY- Neurosurg T1-T3 posterior segmental instrumentation ([place]), T1-T3 posterolateral arthrodesis with local bone autograft, T1, T2, T3 right-sided costotransversectomy and extracavitary approach for resection and separation of spinal/paraspinal mass, use of operating microscope, use of intraoperative navigation, use of intraoperative neuromonitoring. 10/31/2020: Robotic-assisted resection of superior sulcus/thoracic inlet mass with mediastinum. Surgical Pathology: FINAL DIAGNOSIS 1. Mediastinal mass with superior and inferior margins, excisions (A-C) - Schwannoma. - Resection margins are negative for tumor. 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 Feliz on 10/31/20. First incidental discovered paraspinal mass with no symptoms. Met with thoracic surgery, decision made to observe. Over time, developed numbness in R arm, SOB, and back pain. Imaging with interval growth. Pain with staged/combined resection with neurosurgery. On 10/27/20, underwent T1-T4 posterior instrumented fusion, allograft. T2 laminectomy with pedicle takedown and separation of tumor with Dr Soto. On 10/31/2020 Dr Feliz performed a Robotic-assisted resection of superior sulcus/thoracic inlet mass with mediastinum. BP 167/88 Pulse 66 Resp 14 Ht 144.8 cm (4' 9 ) Wt 44 kg (97 lb) SpO2 95% BMI 20.99 kg/m? GENERAL no acute distress alert and oriented x3 HEENT normocephalic, head midline, oral mucous membranes moist HEART regular rate and rhythm S1-S2 normal, no murmur LUNGS clear to auscultation bilaterally, no rhonchi rales or wheezing ABDOMEN soft nontender, nondistended. Bowel sounds active x 4 quadrants EXTREMITIES no clubbing, cyanosis or edema MUSCULOSKELETAL gait within normal limits SKIN no rashes or petechiae IMAGING/TESTS: CT Chest 12/03/2023: IMPRESSION: Right upper paravertebral postoperative changes with no compelling CT evidence of recurrence. Left lower lobe new small nodular opacity, nonspecific, likely benign and to be assessed on follow up exam. INTERVAL HISTORY: Ms Mtz returns to clinic today following CT scan of the chest. She states that over the last few months she has been more fatigued. She had COVID in July, but feels this has been going on longer than the covid. Also has some tingling in her hands and sometimes in her feet. Has not had a follow up with Dr Overton in some time. Will get her back to see him. Weight is stable, but finds it difficult to gain. CT scan shows no evidence of new or recurrent disease. New small left lower lobe lung nodule noted which is most likely benign. Will repeat a CT scan in 3 months in [place] and follow up with a virtual visit. If the nodule has cleared, will then follow with next scan in 2 years. IMPRESSION: 77 year old female s/p Robotic-assisted resection of superior sulcus/thoracic inlet mass with mediastinum 10/31/[address] Feliz for schwannoma. New small LLL nodule PLAN: - CT chest in 3 months at [place], VV next day - f/u with dr Carmel Holguin APRN.[facility] 11-29-2023 Note HNO ID: [id number] Author: RADHA DO RT(R) Service: ? Author Type: Adjunct Physical Education Instructor Type: Progress Notes Filed: 11/29/2023 13:26 Note Text: Radiology Service Progress Note DATE OF SERVICE: November 29, 2023 TIME: 1:26 PM PATIENT IDENTITY VERIFICATION COMPLETED USING TWO (2) STANDARD IDENTIFIERS: Name and Date of confirmed by patient verbally. FALL SCREENING: Has the patient had 2 falls in the last year or 1 fall with injury or currently using an Ambulatory Assistive Device (Walker, Cane, Wheelchair, Crutches, etc.)? No PATIENT GENDER DATA: Female. status: : No status: NO. PATIENT RELEVANT IMPLANT DATA REVIEWED: Yes ALLERGIES: Reviewed and unchanged CONTRAST ALLERGY: NO. EXAM: CT -CONTRAST INDUCED NEPHROPATHY RISK FACTORS: Patient age > 60 years CREATININE: Creatinine Date Value Ref Range Status 11/19/2023 0.88 0.58 - 0.96 mg/dL Final 02/08/2022 0.76 0.58 - 0.96 mg/dL Final Creatinine (POCT) Date Value Ref Range Status 11/10/2021 0.70 0.7 - 1.4 mg/dL Final Estimated Glomerular Filtration Rate Date Value Ref Range Status 11/19/2023 67 >=60 mL/min/1.73m? Final Comment: Estimated Glomerular Filtration Rate (eGFR) is calculated using the 2020 CKD-EPI creatinine equation. This equation utilizes serum creatinine, sex, and age as parameters. The creatinine assay has traceable calibration to isotope dilution-mass spectrometry. Refer to KDIGO guidelines for clinical interpretation. In patients with unstable renal function, e.g. those with acute kidney injury, the eGFR may not accurately reflect actual GFR. eGFR- (POCT) Date Value Ref Range Status 11/10/2021 >60 mL/min/1.73 m2 Final P.O.C.T. RESULTS: POC done: Yes, See Lab Tab November 29, 2023 TREATMENT: N/A PERIPHERAL IV DATA: Ambulatory: A peripheral IV was started in the Left antecubital site with a Angio cath: 22 gauge. RADIOLOGY DEPARTMENT: CT; Exam(s) Completed: Chest SIGNATURE: RT Brenda(R) PATIENT NAME: Heidi Mtz DATE: November 29, 2023 TIME: 1:26 PM [facility] 09-21-2023 Note Procedure date: 08/26. Right Eye Quality was good. Findings include thickening without cystic edema. Interval change is same. Recommendation for management is to observe. Left Eye Quality was good. Findings include normal observations. Interval change is same. Recommendation for management is to observe. [facility] 09-21-2023 Note Procedure date: 08/26. Right Eye Quality was good. Findings include thickening without cystic edema. Interval change is same. Recommendation for management is to observe. Left Eye Quality was good. Findings include normal observations. Interval change is same. Recommendation for management is to observe. RADIOLOGY 09-20-2023 History of Present illness Narrative Chief Complaint Patient presents with Decreased Vision Double Vision HPI 77 year old female with CNV OS, Cataract OS here for 7 month follow up. Patient states she is having decreased VA with uneven double vision for the last month or so. She states that her OS is very Veiled . Haze over OS. Very poor vision with night driving. Terrible glare with headlights. She has rare floaters OU. Shadowing OS. No flashes. Patient wearing 5 year old glasses. Ocular Meds; AT's OU prn PCP: Leslye Bang MD Structural Steel Equipment Erector: [facility] Dr. Byers Last edited by Mona Mendiola MA on 09/20/2023 1:56 PM. Referring Doctor: Dr. Barton Structural Steel Equipment Erector: Dr. Osman Kan O.D. [address] [place] [address] Assessment: - Was Moving to [facility] - Goal -2.00 - Getting new Rx at local optom - Very Happy w vision s/p YAG Right Eye (01/04/2021) T: Diam: 7.31; Ht: 0.59 L: Diam: 6.80; Ht: 0.68 (01/04/2022) T: Diam: 7.91; Ht: 0.61 L: Diam: 6.84; Ht: 0.75 (02/14/2023) T: Diam: 2.46; Ht: 0.97 L: Diam: 2.80; Ht: 0.75 #. Cataract Left Eye - (12/29/2020) may also be contributing to visual issues. - (02/14/2023) some progression, would not update unless having difficulty with glasses and getting things balanced with the right eye. - (09/20/2023) - Affected Activities of daily living (ADLs) drive, read, perform daily activities - Discussed natural history and prognosis with patient - Discussed Risks, benefits, and alternatives to cataract surgery - informed consent obtained - Pt aware of possible need for glasses after surgery - We have discussed premium IOLs and the patient is not a good candidate - Anesthesia Type: Peribulbar block - Special Equipment: no - IOL Master obtained - I have personally viewed the refraction, axial length, and keratometry measurements of this patient - Refractive goal discussed: -2.00 - SE: Right Eye is -3.25 - AU00T0 19.50 Diopter (-2.72) Left Eye - Triamcinolone #. Choroidal Nevus Left Eye - Slight elevation, even coloring, distinct border, small (0.5DD), 3 DD from [facility] within S/T arcade - No fluorescence on FAF - Reports many basal cell carcinomas on head - Squamous cell carcinomas on back and waistline - Hx of rectal cancer - Discussed referral to Dr. Blair for evaluation if any changes noted - Documented since 2010 (appears stable when compared with documentation) - (12/23/2018) Observe Left Eye; stable - (12/25/2019) Observe Left Eye; stable - (12/29/2020) Bscan done today - (12/29/2020) Observe Left Eye; Images Stable - (01/04/2022) Observe Left Eye, Imaging and exam stable, 1 year - (02/14/2023) Observe, stable on imaging and exam #. 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 In addition her vision is blurred in both eyes. - (01/04/2022) Repair by Dr. Grey - Patient happy #. s/p PEM/IOL/IVT Right Eye for Cataract Right Eye (Goal is -2.00; Hx of ERM) (06/29/2015) - [id number] 20.00 (-2.54) - (10/22/2016) s/p Yag Right Eye - Doing well #. PVD Left Eye - No evidence of retinal detachment - No evidence of holes or tears by examination - Reviewed signs of retinal detachment including flashes, floaters, and loss of peripheral visual field - Return to clinic immediately with vision changes #. s/p 25gPPV/MP/ILM peel for ERM Right Eye (02/24/14) - Retina flat, blunted contour - VAcc Right Eye 20/20 #. s/p Yag Right Eye (10/22/2016) I, Adore Hummel, WONG acted as a scribe for Anh Epps MD for this note of 09/20/2023 3:19 PM. I have reviewed the dictated documentation as scribed by Adore Hummel, and it accurately reflects the work performed and the decisions made. Anh Epps MD I saw and independently examined this patient today. I discussed my findings and the therapeutic plan with the patient. I agree with the history, physical examination, and medical decisions as outlined. I have reviewed the documentation and it accurately reflects the work performed and the decisions made. NEXT VISIT ORDERS Tropicamide 1% 1 drop Both Eyes Phenylephrine 2.5% 1 drop to Both Eyes Elliott applanation: Both Eyes OCT Macula: Both Eyes (None until 1 month PO) Photo and Red Free Left Eye (Nevus-Optos) (None until 1 month PO) B-scan nevus Left Eye (due January 2024) Follow-up in surgery Left eye REASON FOR VISIT Heidi Mtz presents to clinic today for a Follow-Up Patient visit. Chief Complaint Decreased Vision; Double Vision HISTORY OF PRESENT ILLNESS HPI 77 year old female with CNV OS, Cataract OS here for 7 month follow up. Patient states she is having decreased VA with uneven double vision for the last month or so. She states that her OS is very Veiled . Haze over OS. Very poor vision with night driving. Terrible glare with headlights. She has rare floaters OU. Shadowing OS. No flashes. Patient wearing 5 year old glasses. Ocular Meds; AT's OU prn PCP: Leslye Bang MD Structural Steel Equipment Erector: [facility] Dr. Byers Last edited by Mona Mendiola MA on 09/20/2023 1:56 PM. 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 Referring Physician: documented in this encounter [facility] 02-14-2023 History of Present illness Narrative Chief Complaint Patient presents with Blurred Vision HPI 77 y.o. female here today for follow up appointment presenting with POH of Choroidal Nevus OS. Pt reports no changes in vision since last visit, but states she has been 'playing around with new glasses' because the glasses do not work with her cataracts OS>OD. Pt reports issues with glare OU and relates them to cataracts. Pt denies new flashes/floaters, vision distortions, vision loss. Using no gtts, no eye vitamins. PCP: Leslye Bang MD Structural Steel Equipment Erector: [facility] Dr. Byers Last edited by Maryjane Ndiaye on 02/14/2023 12:54 PM. Referring Doctor: Dr. Barton Structural Steel Equipment Erector: Dr. Osman Kan O.D. [address] [place] [address] Assessment: - Was Moving to [facility] - Goal -2.00 - Getting new Rx at local optom - Very Happy w vision s/p YAG Right Eye (01/04/2021) T: Diam: 7.31; Ht: 0.59 L: Diam: 6.80; Ht: 0.68 (01/04/2022) T: Diam: 7.91; Ht: 0.61 L: Diam: 6.84; Ht: 0.75 (02/14/2023) T: Diam: 2.46; Ht: 0.97 L: Diam: 2.80; Ht: 0.75 #. Choroidal Nevus Left Eye - Slight elevation, even coloring, distinct border, small (0.5DD), 3 DD from [facility]T arcade - No fluorescence on FAF - Reports many basal cell carcinomas on head - Squamous cell carcinomas on back and waistline - Hx of rectal cancer - Discussed referral to Dr. Blair for evaluation if any changes noted - Documented since 2010 (appears stable when compared with documentation) - (12/23/2018) Observe Left Eye; stable - (12/25/2019) Observe Left Eye; stable - (12/29/2020) Bscan done today - (12/29/2020) Observe Left Eye; Images Stable - (01/04/2022) Observe Left Eye, Imaging and exam stable, 1 year - (02/14/2023) Observe, stable on imaging and exam #. 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 In addition her vision is blurred in both eyes. - (01/04/2022) Repair by Dr. Grey - Patient happy #. s/p PEM/IOL/IVT Right Eye for Cataract Right Eye (Goal is -2.00; Hx of ERM) (06/29/2015) - (10/22/2016) s/p Yag Right Eye - Doing well #. Cataract Left Eye - (12/29/2020) may also be contributing to visual issues. - (02/14/2023) some progression, would not update unless having difficulty with glasses and getting things balanced with the right eye. #. PVD Left Eye - No evidence of retinal detachment - No evidence of holes or tears by examination - Reviewed signs of retinal detachment including flashes, floaters, and loss of peripheral visual field - Return to clinic immediately with vision changes #. s/p 25gPPV/MP/ILM peel for ERM Right Eye (02/24/14) - Retina flat, blunted contour - VAcc Right Eye 20/20 #. s/p Yag Right Eye (10/22/2016) I, Adore Hummel, COA acted as a scribe for Anh Epps MD for this note of 02/14/2023 1:56 PM. I have reviewed the dictated documentation as scribed by Adore Hummel, and it accurately reflects the work performed and the decisions made. Anh Epps MD I saw and independently examined this patient today. I discussed my findings and the therapeutic plan with the patient. I agree with the history, physical examination, and medical decisions as outlined. I have reviewed the documentation and it accurately reflects the work performed and the decisions made. NEXT VISIT ORDERS Tropicamide 1% 1 drop Both Eyes Phenylephrine 2.5% 1 drop to Both Eyes Elliott applanation: Both Eyes OCT Macula: Both Eyes Photo and Red Free Left Eye (Nevus-Optos) B-scan nevus Left Eye Follow-up 1 year REASON FOR VISIT Heidi Mtz presents to clinic today for a Follow-Up Patient visit. Chief Complaint Blurred Vision HISTORY OF PRESENT ILLNESS HPI 77 y.o. female here today for follow up appointment presenting with POH of Choroidal Nevus OS. Pt reports no changes in vision since last visit, but states she has been 'playing around with new glasses' because the glasses do not work with her cataracts OS>OD. Pt reports issues with glare OU and relates them to cataracts. Pt denies new flashes/floaters, vision distortions, vision loss. Using no gtts, no eye vitamins. PCP: Leslye Bang MD Last edited by Maryjane Ndiaye on 02/14/2023 12:53 PM. Allergies, medications & history reviewed & updated by Maryjane Ndiaye REVIEW OF SYSTEMS Review of Systems Eyes: Positive for visual disturbance. Respiratory: Negative for cough, shortness of breath and wheezing. 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 Referring Physician: documented in this encounter [facility] 02-15-2022 History of Present illness Narrative REASON FOR VISIT Heidi Mtz presents to clinic today for a Post-Op Patient visit. Chief Complaint Post Op Visit HISTORY OF PRESENT ILLNESS HPI 76 yr old female present today for s/p Right upper lid internal ptosis repair (9 mm MMCR) (12/15/21). Pt states things have went really well since last seen. Pt states she is able to notice an improvement and is very happy with results. Pt denies any pain or discomfort. Last edited by Carmencita Fournier on 02/15/2022 1:06 PM. (History) Allergies, medications & history reviewed & updated by Carmencita Fournier REVIEW OF SYSTEMS >10-15 minutes spent discussing post-operative instructions. >5-10 minutes was spent with patient updating allergies, medications, and medical history, assessing visual acuities, pupillary assessment and exterior photography. REASON FOR VISIT Heidi Mtz presents to clinic today for a Post-Op Patient visit. Chief Complaint Post Op Visit HISTORY OF PRESENT ILLNESS HPI 76 yr old female present today for s/p Right upper lid internal ptosis repair (9 mm MMCR) (12/15/21). Pt states things have went really well since last seen. Pt states she is able to notice an improvement and is very happy with results. Pt denies any pain or discomfort. Last edited by Carmencita Fournier on 02/15/2022 1:06 PM. (History) Allergies, medications & history reviewed & updated by Kody Grey MD REVIEW OF SYSTEMS >10-15 minutes spent discussing post-operative instructions. >5-10 minutes was spent with patient updating allergies, medications, and medical history, assessing visual acuities, pupillary assessment and exterior photography. Base Eye Exam Visual Acuity (Snellen - Linear) Right Left Dist cc 20/25 +1 20/20 Correction: Glasses Pupils Pupils APD Right PERRL None Left PERRL None Neuro/Psych Oriented x3: Yes Mood/Affect: Normal Slit Lamp and Fundus Exam External Exam Right Left External Normal 1+ temporal brow ptosis Palpebral fissure 10.5 mm 10 mm MRD1 4.5 mm 4 mm MRD2 6 mm 6 mm Superior scleral show 0 mm 0 mm Inferior scleral show 0 mm 0 mm Levator 17 mm 15 mm Lagophthalmos 0 mm 0 mm Exophthalmometry Right Left mm mm Slit Lamp Exam Right Left Lids/Lashes Excellent upper lid position, no lagophthalmos 2+ upper lid dermatochalasis Conjunctiva/Sclera White and quiet White and quiet Cornea Clear Clear Anterior Chamber Deep and quiet Deep and quiet Iris Round and reactive Round and reactive Lens PCIOL, open PC Nuclear sclerosis Vitreous s/p ppv Posterior vitreous detachment Assessment/Plan: Excellent result following R upper lid internal ptosis repair. - Photographs today. RTC prn. documented in this encounter [facility] 11-03-2021 History of Present illness Narrative Radiology Service Progress Note PATIENT NAME: Heidi Mtz DATE OF SERVICE: November 03, 2021 TIME: 8:02 AM PATIENT IDENTITY VERIFICATION COMPLETED USING TWO (2) IDENTIFIERS: Name and Date of confirmed by patient verbally. FALL SCREENING: Has the patient had 2 falls in the last year or 1 fall with injury or currently using an Ambulatory Assistive Device (Walker, Cane, Wheelchair, Crutches, etc.)? No PATIENT GENDER DATA: Female. status: : No status: NO. PATIENT RELEVANT IMPLANT DATA REVIEWED: Yes RADIOLOGY DEPARTMENT: General X-ray: Exam(s) Completed: Spine X-Ray(s): Thoracic PERIPHERAL IV DATA: Not applicable SIGNED BY: RT Raji(R) November 03, 2021 8:02 AM documented in this encounter [facility] 07-08-2019 History of Past i llness Narrative Problem Noted Date Diagnosed Date Resolved Date Other chest pain 07/08/2019 07/09/2019 Last Assessment & Plan: Assessment: - Chest pain described as soreness with associated SOB after walking dog - 2 baby ASA at home with no relief - R side soreness subsided in ED - Stress test 02/2016: normal - EKG: no acute changes - CT PE: negative - HS trop 12 x 2 - CK negative - 2 addition baby ASA in ED - TTP of area under L breast to L upper back - Not likely to be ACS but will r/o PLAN: - Tele - Cycle trops - If workup negative, follow up outpatient with Cardiology SOB (shortness of breath) 07/08/2019 Last Assessment & Plan: Assessment: - SOB with associated CP - SpO2 98% on RA PLAN: - Monitor Chest pain 07/08/2019 07/09/2019 documented as of this encounter (statuses as of 03/03/2024) [facility] History of Past illness Narrative* Problem Noted Date Diagnosed Date Resolved Date Other chest pain 07/08/2019 07/09/2019 Last Assessment & Plan: Assessment: - Chest pain described as soreness with associated SOB after walking dog - 2 baby ASA at home with no relief - R side soreness subsided in ED - Stress test 02/2016: normal - EKG: no acute changes - CT PE: negative - HS trop 12 x 2 - CK negative - 2 addition baby ASA in ED - TTP of area under L breast to L upper back - Not likely to be ACS but will r/o PLAN: - Tele - Cycle trops - If workup negative, follow up outpatient with Cardiology SOB (shortness of breath) 07/08/2019 Last Assessment & Plan: Assessment: - SOB with associated CP - SpO2 98% on RA PLAN: - Monitor Chest pain 07/08/2019 07/09/2019 documented as of this encounter (statuses as of 03/04/2024) [facility] No data available for this section [facility] Evaluation note* Diagnosis Postop check - Right Eye- Primary Follow-up examination, following unspecified surgery Paralytic ptosis, acquired, 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 [facility] Diagnosis 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 Epiretinal membrane (ERM) of right eye Nuclear sclerotic cataract of left eye Senile nuclear sclerosis [facility] Diagnosis Nuclear sclerotic cataract of left eye- Primary Senile nuclear sclerosis Epiretinal membrane (ERM) of right eye 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 [facility] Diagnosis Aftercare following surgery of a sensory organ- Primary Aftercare following surgery of the sense organs, NEC Epiretinal membrane (ERM) of right eye [facility] Diagnosis Aftercare following surgery of a sensory organ- Primary Aftercare following surgery of the sense organs, NEC Epiretinal membrane (ERM) of right eye 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 [facility] Diagnosis Aftercare following surgery of a sensory organ- Primary Aftercare following surgery of the sense organs, NEC 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 Epiretinal membrane (ERM) of right eye Visit for screening mammogram Other screening mammogram [facility] [place] [facility] Diagnosis Schwannoma of nerve of chest [facility] Visit for screening mammogram Other screening mammogram [facility] [place] [facility] Diagnosis 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 [facility] Diagnosis History of rectal cancer- Primary Personal history of malignant neoplasm of rectum, rectosigmoid junction, and anus [facility] [place] [facility] Diagnosis 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 Posterior vitreous detachment of left eye Vitreous degeneration Pseudophakia, left eye Lens replaced by other means [facility] Diagnosis Cervical spondylosis with myelopathy- Primary Spinal stenosis of cervical region Spinal stenosis in cervical region [facility] Diagnosis Spinal stenosis of cervical region Spinal stenosis in cervical region [facility] Diagnosis Abnormality of gait- Primary Decreased dexterity Lack of coordination [facility] Diagnosis Other chest pain- Primary Chest pain, unspecified type Dyspnea, unspecified type Elevated troponin Other abnormal blood chemistry SOB (shortness of breath) Shortness of breath GERD (gastroesophageal reflux disease) Esophageal reflux Chest pain Chest pain, unspecified Schwannoma- Primary Other benign neoplasm of connective and other soft tissue of unspecified site Postoperative pain Other acute postoperative pain Schwannoma Other benign neoplasm of connective and other soft tissue of unspecified site Pain, postoperative, acute Other acute postoperative pain Essential hypertension Unspecified essential hypertension History of rectal cancer Personal history of malignant neoplasm of rectum, rectosigmoid junction, and anus Pain, postoperative, acute Other acute postoperative pain Discharge planning issues Encounters for unspecified administrative purpose Ptosis of right eyelid Unspecified ptosis of eyelid Acute blood loss anemia Acute posthemorrhagic anemia Preoperative examination- Primary Preoperative examination, unspecified Schwannoma Other benign neoplasm of connective and other soft tissue of unspecified site Essential hypertension Unspecified essential hypertension Gastroesophageal reflux disease, unspecified whether esophagitis present PFO (patent foramen ovale) Ostium secundum type atrial septal defect History of rectal cancer Personal history of malignant neoplasm of rectum, rectosigmoid junction, and anus 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) documented in this encounter [facility] Discharge instructions No data available for this section [facility] Progress note No data available for this section [facility] Reason for referral (narrative)* Outpatient Procedure (Routine) - Authorized Specialty Diagnoses / Procedures Referred By Kt t Referred To Contact [facility] [place] Diagnoses History of rectal cancer Procedures COLONOSCOPY SCREENING COLONOSCOPY FLX DX W/COLLJ SPEC WHEN PFRMD Charles Pathak MD [address] [place] [address] [facility] Disease [place] [id number] Referral ID Status Reason Start Date Expiration Date Visits Requested Visits Authorized [id number] Authorized Auto-Generat ed Referral 04/09/2024 04/09/2025 1 1 [facility] Summary Purpose Family History No Family History Records FoundNo Family History Records FoundNo Family History Records FoundNo Family History Records FoundNo Family History Records FoundNo Family History Records FoundNo Family History Records FoundNo Family History Records Found Advance Directives Date Activated Date Inactivated Comments 11/06/2020 3:21 PM Date Activated Date Inactivated Comments 11/06/2020 3:21 PM Hospital Course Note HNO ID: [id number] Author: William Pitt Service: Hospital Medicine Author Type: Physician Type: Discharge Summary Filed: 07/09/2019 10:24 AM Note Text: DISCHARGE SUMMARY PATIENT NAME: Heidi Mtz Code Status: Not on file Highest Readmission Risk Score: 8 The 30 day readmissions risk score is derived from an internally validated risk model which evaluates patient level characteristics, utilization history, medication orders and lab results up until the day of discharge. Patients with a score of 40 or above are considered highest risk for readmission. Specific patient level drivers will be listed at the bottom of the summary. Admission Information Admission Information ADMIT DATE: 07/08/2019 DISCHARGE DATE: 07/09/2019 MY DOCTORS AND MEDICAL TEAM: My Main Hospital Doctor: Darion Cote) Yoandy Primary Care Provider: Leslye Bang MD My Medical Team Members: Treatment Team: Attending Provider: Darion Pitt MY CONDITION AT DISCHARGE: Stable REASON I WAS IN THE HOS (more content not included)... Reason for Referral Specialty Diagnoses / Procedures Referred By Contac t Referred To Contact Neurology Diagnoses Abnormality of gait Decreased dexterity Procedures CONSULT TO NEUROLOGY OFFICE/OUTPATIENT [facility] 60 MINUTES Maggy Sharp PA-C [address] [address] Referral ID Status Reason Start Date Expiration Date Visits Requested Visits Authorized [id number] Authorized PCP Requested Referral 06/23/2024 06/23/2025 1 1 Specialty Diagnoses / Procedures Referred By Contac t Referred To Contact MR IMAGING Diagnoses Spinal stenosis of cervical region Procedures MRI CERVICAL SPINE WO IVCON MRI SPINAL CANAL CERVICAL W/O CONTRAST Celia Olivier MD [address] [place] [address] [place] [address] Referral ID Status Reason Start Date Expiration Date Visits Requested Visits Authorized [id number] Pending Review Auto-Generat ed Referral 04/24/2024 05/24/2025 1 1 Specialty Diagnoses / Procedures Referred By Contac t Referred To Contact CT IMAGING Diagnoses Neoplasm of lung Procedures CT CHEST WO IVCON DIAGNOSTIC COMPUTED TOMOGRAPHY THORAX W/O CNTRST Uzma Holguin, ANDROID IOS DEVELOPER.PIANO REGULATOR [address] [place] [address] [place] [address] Referral ID Status Reason Start Date Expiration Date Visits Requested Visits Authorized [id number] Pending Review Auto-Generat ed Referral 03/03/2024 04/02/2025 1 1 Specialty Diagnoses / Procedures Referred By Contac t Referred To Contact Diagnoses Visit for screening mammogram Procedures MAMMO SCREENING WITH SHARONDA BILATERAL Mammography-Nain, Self-Requested [place] [address] Referral ID Status Reason Start Date Expiration Date V isits Requested Visits Authorized [id number] New Request 01/20/2024 02/13/2025 1 1 Additional Source Comments INFORMATION SOURCE (unrecogn ized section and content) DATE CREATED AUTHOR 05/12/2018 [facility] DATE CREATED AUTHOR AUTHOR'S ORGANIZ ATION 05/13/2018 [facility] DATE CREATED AUTHOR AUTHOR'S ORGANIZ ATION 06/06/2018 [facility] DATE CREATED AUTHOR AUTHOR'S ORGANIZ ATION 01/13/2019 [facility] DATE CREATED AUTHOR AUTHOR'S ORGANIZ ATION 07/16/[address] [facility] DATE CREATED AUTHOR AUTHOR'S ORGANIZ ATION 04/15/2022 [facility] ([place]) DATE CREATED AUTHOR AUTHOR'S ORGANIZ ATION 04/23/[address] [facility] DATE CREATED AUTHOR AUTHOR'S ORGANIZ ATION 06/13/2024 [facility] Reason for Visit (unrecogniz ed section and content) Reason Comments Post Op Visit Reason Comments Blurred Vision Reason Comments Decreased Vision Double Vision Reason Comments Blurred Vision Post Op Visit Reason Comments Post Op Visit Blurred Vision Reason Comments Radiology CT Specialty Diagnoses / Procedures Referred By Contac t Referred To Contact CT IMAGING Diagnoses Schwannoma of nerve of chest Procedures CT CHEST W IVCON DIAGNOSTIC COMPUTED TOMOGRAPHY THORAX W/CONTRAST Uzma Holguin, ANDROID IOS DEVELOPER.PIANO REGULATOR [address] [place] [address] [place] [address] Referral ID Status Reason Start Date Expiration Date V isits Requested Visits Authorized [id number] Closed Auto-Generate d Referral 12/03/2023 01/01/2025 1 1 Specialty Diagnoses / Procedures Referred By Contac t Referred To Contact Diagnoses Visit for screening mammogram Procedures MAMMO SCREENING WITH SHARONDA BILATERAL Mammography-Nain Self-Requested [place] [address] Referral ID Status Reason Start Date Expiration Date V isits Requested Visits Authorized [id number] New Request 01/20/2024 02/13/2025 1 1 Reason Comments Follow Up Reason Comments New Patient colonoscopy Specialty Diagnoses / Procedures Referred By Contac t Referred To Contact MR IMAGING Diagnoses Spinal stenosis of cervical region Procedures MRI CERVICAL SPINE WO IVCON MRI SPINAL CANAL CERVICAL W/O CONTRAST Celia Olivier MD [address] [place] [address] [place] [address] Referral ID Status Reason Start Date Expiration Date V isits Requested Visits Authorized [id number] Closed Auto-Generate d Referral 04/24/2024 05/24/2025 1 1 Care Teams (unrecognized sec tion and content) City Weighmaster Relationship Specialty Start Date End Date Leslye Bang MD [address] [place] [phone] PCP - General Family Medicine 12/27/20 City Weighmaster Relationship Specialty Start Date End Date Leslye Bang MD [address] [place] [phone] PCP - General Family Medicine 12/27/20 City Weighmaster Relationship Specialty Start Date End Date Leslye Bang MD [address] [place] [phone] PCP - General Family Medicine 12/27/20 City We[employer]master Relationship Specialty Start Date End Date Leslye Bang MD [address] [place] [phone] PCP - General Family Medicine 12/27/20 [facility] [address] [place] [address] Optometry 09/23/23 City Weighmaster Relationship Specialty Start Date End Date Leslye Bang MD [address] [place] [phone] PCP - General Family [facility] 12/27/20 [facility] [place] [address] Optometry 09/23/23 City Weighmaster Relationship Specialty Start Date End Date Leslye Bang MD [address] [place] [phone] PCP - General [facility] 12/27/20 [facility] [address] [place] [phone] Optometry 09/23/23 City Weighmaster Relationship Specialty Start Date End Date Brandee Feliz MD, PhD [address] [place] [address] Referring Thoracic Surgery 11/01/20 Brandee Feliz MD, PhD [address] [place] [address] Home Care Provider Thoracic Surgery 11/04/20 Veronica Martinez, RN [address] [place] [address] Flange Machine Operator Post Acute Care 11/04/20 City Weighmaster Relationship Specialty Start Date End Date Leslye Bang MD [address] [place] [phone] PCP - General Family Medicine 12/27/20 India Villagomez OD [address] [place] [address] Optometry 09/23/23 City Weighmaster Relationship Specialty Start Date End Date Brandee Feliz MD, PhD [address] [place] [address] Referring Thoracic Surgery 11/01/20 Brandee Feliz MD, PhD [address] [place] [address] Home Care Provider Thoracic Surgery 11/04/20 Veronica Martinez RN [address] [facility] [place] [address] Flange Machine Operator Post Acute Care 11/04/20 City Weighmaster Relationship Specialty Start Date End Date Brandee Feliz MD, PhD [address] [place] [address] Referring Thoracic Surgery 11/01/20 Brandee Feliz MD, PhD [address] [place] [address] Home Care Provider Thoracic Surgery 11/04/20 Veronica Martinez RN [address] [place] [address] Flange Machine Operator Post Acute Care 11/04/20 City Weighmaster Relationship Specialty Start Date End Date Brandee Feliz MD, PhD [address] [place], [place] [phone] Referring Thoracic Surgery 11/01/20 Brandee Feilz MD, PhD [address] [place] [address] Home Care Provider Thoracic Surgery 11/04/20 Veronica Martinez, RN [address] [place], [place] [phone] Flange Machine Operator Post Acute Care 11/04/20 City Weighmaster Relationship Specialty Start Date End Date Leslye Bang MD [address] [place] [phone] PCP - General Family Medicine 12/27/20 India Villagomez OD [address] [place] [address] Optometry 09/23/23 City Weighmaster Relationship Specialty Start Date End Date Brandee Feliz MD, PhD [address] [place] [address] Referring Thoracic Surgery 11/01/20 Brandee Feliz MD, PhD [address] [place] [address] Home Care Provider Thoracic Surgery 11/04/20 Veronica Martinez RN [address] [facility] [place], [place] [phone] Flange Machine Operator Post Acute Care 11/04/20 City Weighmaster Relationship Specialty Start Date End Date Brandee Feliz MD, PhD [address] [place] [address] Referring Thoracic Surgery 11/01/20 Brandee Feliz MD, PhD [address] [place], [place] [phone] Home Care Provider Thoracic Surgery 11/04/20 Veronica Martinez, LASHANDA [address] [place], [place] [phone] Flange Machine Operator Post Acute Care 11/04/20 City Weighmaster Relationship Specialty Start Date End Date Brandee Feliz MD, PhD [address] [place], [place] [phone] Referring Thoracic Surgery 11/01/20 Brandee Feliz MD, PhD [address] [place], [place] [phone] Home Care Provider Thoracic Surgery 11/04/20 Veronica Martinez, LASHANDA [address] [place], [place] [phone] Flange Machine Operator Post Acute Care 11/04/20 Source Comments (unrecognize d section and content) In the event this informatio n is protected by the Federal Confidentiality of Alcohol and Drug Abuse Patient Records regulations: The Federal rules restrict any use of the information to criminally investigate or prosecute any alcohol or drug abuse patient.[facility] the event this information is protected by the Federal Confidentiality of Alcohol and Drug Abuse Patient Records regulations: The Federal rules restrict any use of the information to criminally investigate or prosecute any alcohol or drug abuse patient.[facility] the event this information is protected by the Federal Confidentiality of Alcohol and Drug Abuse Patient Records regulations: The Federal rules restrict any use of the information to criminally investigate or prosecute any alcohol or drug abuse patient.[facility] the event this information is protected by the Federal Confidentiality of Alcohol and Drug Abuse Patient Records regulations: The Federal rules restrict any use of the information to criminally investigate or prosecute any alcohol or drug abuse patient.[facility] the event this information is protected by the Federal Confidentiality of Alcohol and Drug Abuse Patient Records regulations: The Federal rules restrict any use of the information to criminally investigate or prosecute any alcohol or drug abuse patient.[facility] the event this information is protected by the Federal Confidentiality of Alcohol and Drug Abuse Patient Records regulations: The Federal rules restrict any use of the information to criminally investigate or prosecute any alcohol or drug abuse patient.[facility] Campus[facility] the event this information is protected by the Federal Confidentiality of Alcohol and Drug Abuse Patient Records regulations: The Federal rules restrict any use of the information to criminally investigate or prosecute any alcohol or drug abuse patient.[facility] CampusIn the event this information is protected by the Federal Confidentiality of Alcohol and Drug Abuse Patient Records regulations: The Federal rules restrict any use of the information to criminally investigate or prosecute any alcohol or drug abuse patient.[facility] CampusIn the event this information is protected by the Federal Confidentiality of Alcohol and Drug Abuse Patient Records regulations: The Federal rules restrict any use of the information to criminally investigate or prosecute any alcohol or drug abuse patient.[facility] FOR RECORDS PERTAINING TO PATIENTS WHO ARE OR HAVE BEEN ENROLLED IN A CHEMICAL DEPENDENCY/SUBSTANCEABUSE PROGRAM, SOME INFORMATION MAY BE OMITTED. This clinical summary was aggregated from multiple sources. Caution should be exercised in using it in the provision of clinical care. This summary normalizes information from multiple sources, and as a consequence, information in this document may materially change the coding, format and clinical context of patient data. In addition, data may be omitted in some cases. CLINICAL DECISIONS SHOULD BE BASED ON THE PRIMARY CLINICAL RECORDS. [facility]. provides no warranty or guarantee of the accuracy or completeness of information in this document.
== END | disposition home or self-care (01) ==
LOC: MFPLAB 15:47
PROVIDERS: PCP Family Medicine; Referring Provider Family Medicine; Visit Provider Family Medicine
DX: R39.9 Unspecified symptoms and signs involving the genitourinary system (principal)
CPT/HCPCS: 81001

== ENCOUNTER → 2024-09-28 | Outpatient (CLI) | payer MEDICARE, OTHER, SELFPAY ==
[2024-09-28 15:16] LABS: Color, Urine Yellow (Yellow); Glucose, Dipstick Normal (Normal); Ketone-Dipstick Negative (Negative); Leukocyte Esterase-Dipstick 500 /ul (Negative); Nitrite-Dipstick Positive (Negative); Occult Blood-Urine 250 /ul (Negative); Protein-Dipstick 30 mg/dl (Negative); Specific Gravity, Urine 1.015 (1.002-1.030); Urine Bilirubin Dipstick Negative (Negative); Urine Clarity Sl. Cloudy (Clear); Urine Urobilinogen Normal (Normal)
== END | disposition home or self-care (01) ==
LOC: MFPLAB 11:53
PROVIDERS: PCP Family Medicine; Visit Provider Family Medicine
DX: R39.9 Unspecified symptoms and signs involving the genitourinary system (principal)
CPT/HCPCS: 81002; 87077; 87086; 87088; 87186

== ENCOUNTER → 2024-11-13 | Outpatient (CLI) | payer MEDICARE, OTHER, SELFPAY ==
[2024-11-19 15:07] LABS: Acetylcholine Receptor Binding < 0.03 nmol/L (0.00-0.24)
== END | disposition home or self-care (01) ==
LOC: MFPLAB 11:39
PROVIDERS: PCP Family Medicine; Referring Provider Family Medicine; Visit Provider Family Medicine
DX: H53.2 Diplopia (principal)
CPT/HCPCS: 36415; 84238

== ENCOUNTER → 2024-12-07 | Outpatient (CLI) | payer MEDICARE, OTHER, SELFPAY | END | disposition home or self-care (01) | LOC: MFPLAB 13:36 → LABSPEC 13:37 | PROVIDERS: PCP Family Medicine; Referring Provider Family Medicine; Visit Provider Family Medicine | DX: R39.9 Unspecified symptoms and signs involving the genitourinary system (principal) | CPT/HCPCS: 87086 ==

== ENCOUNTER → 2024-12-15 | Outpatient (CLI) | payer MEDICARE, OTHER, SELFPAY ==
--- NOTE | 2024-12-15 16:31 | MRI_ITS ---
STUDY: MRI BRAIN WITH AND WITHOUT CONTRAST REASON FOR EXAM: Female, 78 years old. Dystonic kinesia, double vision, headache, history of schwannoma in thoracic spine, hx of colon cancer TECHNIQUE: Multiplanar multisequence imaging of the brain was performed without and following the administration of intravenous contrast. COMPARISON: Noncontrast head CT 06/28/2024 FINDINGS: The ventricles, cisterns, and sulci are within normal limits for patients age. There is no restricted diffusion to suggest acute ischemia or infarction. No succeptibility artifict to suggest intracranial hemorrhage or mineralization. Major intracranial signal voids are preserved. There is no midline shift, mass effect, or extra axial fluid collections are seen. No CP angle or IAC mass is seen. The orbits are unremarkable. The sella turcica and craniovertebral junction are within normal limits. The visualized paranasal sinuses are clear. The mastoid air cells are clear. No abnormal enhancement is seen. MRI/Brain W/WO Contrast IMPRESSION: No intracranial hemorrhage, acute infarct, or space occupying lesion seen. Electronically Signed: Jayce Miguel MD at 20:07 EST ,
== END | disposition home or self-care (01) ==
LOC: MRI 16:15
PROVIDERS: PCP Family Medicine; Referring Provider Family Medicine; Visit Provider Family Medicine
DX: H53.2 Diplopia (principal)
CPT/HCPCS: 70553; A9575

== ENCOUNTER → 2025-01-15 | Outpatient (CLI) | payer MEDICARE, OTHER, SELFPAY ==
[2025-01-15 18:26] LABS: Anion Gap 3 (5-15); BUN 20 mg/dL (7-18); Calcium,Total 9.3 mg/dL (8.5-10.1); Chloride 108 mmol/L (98-107); Creatinine, Serum 0.69 mg/dL (0.55-1.02); EST Glomerular Filtration Rate 87 mL/min (>60); Est Glom Filt Rate - Afr Amer 105 mL/min (>60); Glucose 89 mg/dL (74-106); Potassium 4.4 mmol/L (3.5-5.1); Sodium Level 141 mmol/L (136-145)
== END | disposition home or self-care (01) ==
LOC: MFPLAB 16:31
PROVIDERS: PCP Family Medicine; Referring Provider Family Medicine; Visit Provider Family Medicine
DX: I10 Essential (primary) hypertension (principal)
CPT/HCPCS: 36415; 80048

== ENCOUNTER → 2025-01-27 | Outpatient (CLI) | payer MEDICARE, OTHER, SELFPAY ==
--- NOTE | 2025-01-27 11:15 | RAD_ITS ---
PROCEDURE: CHEST PA AND LATERAL REASON FOR EXAM: bronchitis wheezing TECHNIQUE: PA and lateral views of the chest were obtained COMPARISON: 07/28/2019 FINDINGS: Heart: Unremarkable. Mediastinum: Atherosclerosis Lungs/pleura: Hyper lucency in the apices and mild interstitial prominence are similar. Previous dense right apical opacity no longer visualized. No effusion or visible pneumothorax. Bones: Demineralization. Interval cervicothoracic posterior spinal fusion. Trace thoracic levoscoliosis. Lines and support devices: None. RAD/Chest PA and Lateral IMPRESSION: 1. No visible acute cardiopulmonary findings. 2. Suspect emphysema. Consider outpatient lung cancer screening per the below USPSTF guidelines. 3. Additional description as above. The USPSTF recommends annual screening for lung cancer with low-dose computed t omography (LDCT) in adults aged 50 to 80 years who have a 20 pack-year smoking history and currently smoke or have quit within the past 15 years. Reading Location: [id number]
== END | disposition home or self-care (01) ==
LOC: MTRAD 11:15
PROVIDERS: PCP Family Medicine
DX: J40 Bronchitis, not specified as acute or chronic (principal)
CPT/HCPCS: 71046

== ENCOUNTER → 2025-07-29 | Outpatient (CLI) | payer MEDICARE, OTHER, SELFPAY ==
[2025-07-29 12:37] LABS: Hematocrit 40.9 % (37-47); Hemoglobin 13.2 g/dL (12.0-15.0); Immature Granulocytes Count 0.010 X10^3/uL (0.0-0.0); Mean Corp Hgb Conc 32.3 g/dL (32-36); Mean Corpuscular Volume 86.8 fL (81-99); Mean Platelet Vol. 10.7 fl (6.2-12.0); NRBC Flagged by Analyzer 0 % (0-5); Platelet Count 246 K/mm3 (150-450); RBC Distribution Width CV 14.6 % (11.6-14.6); RBC Distribution Width SD 46.7 fl (35.1-43.9); Red Blood Count 4.71 M/mm3 (4.2-5.4); White Blood Count 5.3 K/mm3 (4.4-11.0)
[2025-07-29 13:27] LABS: AST(SGOT) 34 U/L (<=31); Alanine Aminotransfer ALT/SGPT 21 U/L (<=34); Albumin, Serum 4.1 g/dL (3.4-4.8); Alkaline Phosphatase 89 U/L (35-104); Anion Gap 9 (5-15); BUN 19 mg/dL (4-19); BUN/Creat Ratio 27.2 RATIO (10-20); Calcium,Total 9.6 mg/dL (7.6-11.0); Carbon Dioxide 27.6 mmol/L (21.0-32.0); Chloride 105 mmol/L (98-108); Cholesterol 193 mg/dL (<=200); Globulin 2.9 g/dL (2.2-4.2); Glucose 94 mg/dL (70-99); Low Density Lipoprotein Calc. 89 mg/dL; Potassium 5.2 mmol/L (3.3-5.1); Triglycerides 91 mg/dL; Very Low Density Lipoprotein 18 mg/dL (5-40); Vitamin D,25 Hydroxy 37.2 ng/mL (30-100); cholesterol:hdl ratio screen 2.24
[2025-07-29 14:03] LABS: Iron 72 ug/dL (50-170); Iron Binding Capacity,Total 298 ug/dL (250-450); Iron Binding Capacity,Unsat 226 ug/dL (228-428)
== END | disposition home or self-care (01) ==
LOC: MFPLAB 10:54
PROVIDERS: PCP Family Medicine; Visit Provider Family Medicine
DX: D64.9 Anemia, unspecified (principal); Z13.220 Encounter for screening for lipoid disorders; R53.83 Other fatigue; I10 Essential (primary) hypertension
CPT/HCPCS: 36415; 80053; 80061; 82306; 83540; 83550; 84443; 85025

== ENCOUNTER → 2025-08-03 | Outpatient (CLI) | payer MEDICARE, OTHER, SELFPAY ==
--- NOTE | 2025-08-03 15:34 | RAD_ITS ---
PROCEDURE: LUMBAR SPINE 2 OR 3 VIEWS 08/03/2025 REASON FOR EXAM: R FLANK PAIN/BACK PAIIN S/P FALL ON L, KNOWN OSTEOPROSIS TECHNIQUE: Procedure Code: RADSPLL Modality: DX Procedure: LUMBAR SPINE 2 OR 3 VIEWS FINDINGS: No evidence of acute fracture or dislocation. Dextroscoliosis. [id number] degenerative changes of the visualized spine. Grade 1 anterolisthesis of L4 on L5. RAD/Lumbar Spine 2 or 3 Views IMPRESSION: Scoliosis. Spondylosis. Spondylolisthesis. Reading Location: [id number]
--- NOTE | 2025-08-03 15:34 | RAD_ITS ---
PROCEDURE: THORACIC SPINE 2 VIEWS 08/03/2025 REASON FOR EXAM: R FLANK PAIN/BACK PAIIN S/P FALL ON L, KNOWN OSTEOPROSIS TECHNIQUE: Procedure Code: RADSPT2 Modality: DX Procedure: THORACIC SPINE 2 VIEWS COMPARISON: 06/28/2024. FINDINGS: No evidence acute fracture or dislocation. Cervicothoracic fusion. Levoscoliosis. Moderate degenerative changes of the thoracic spine. RAD/Thoracic Spine 2 Views IMPRESSION: Scoliosis. Spondylosis. Reading Location: [id number]
== END | disposition home or self-care (01) ==
LOC: MTRAD 15:34
PROVIDERS: PCP Family Medicine; Referring Provider Family Medicine; Visit Provider Family Medicine
DX: M54.9 Dorsalgia, unspecified (principal); M81.0 Age-related osteoporosis without current pathological fracture; R10.9 Unspecified abdominal pain; W19.XXXA Unspecified fall, initial encounter
CPT/HCPCS: 72070; 72100

== ENCOUNTER → 2025-08-13 | Outpatient (CLI) | payer MEDICARE, OTHER, SELFPAY ==
[2025-08-13 11:04] LABS: AST(SGOT) 26 U/L (<=31); Alanine Aminotransfer ALT/SGPT 19 U/L (<=34); Albumin, Serum 4.1 g/dL (3.4-4.8); Alkaline Phosphatase 102 U/L (35-104); Anion Gap 11 (5-15); BUN 19 mg/dL (4-19); BUN/Creat Ratio 24.1 RATIO (10-20); Calcium,Total 9.5 mg/dL (7.6-11.0); Carbon Dioxide 27.2 mmol/L (21.0-32.0); Chloride 104 mmol/L (98-108); Globulin 3.1 g/dL (2.2-4.2); Glucose 111 mg/dL (70-99); Potassium 5.4 mmol/L (3.3-5.1)
== END | disposition home or self-care (01) ==
LOC: MFPLAB 09:06
PROVIDERS: PCP Family Medicine; Visit Provider Family Medicine
DX: E87.5 Hyperkalemia (principal)
CPT/HCPCS: 36415; 80053

== ENCOUNTER → 2025-08-30 | Outpatient (CLI) | payer MEDICARE, OTHER, SELFPAY ==
[2025-08-30 21:27] LABS: AST(SGOT) 30 U/L (<=31); Alanine Aminotransfer ALT/SGPT 17 U/L (<=34); Albumin, Serum 4.1 g/dL (3.4-4.8); Alkaline Phosphatase 98 U/L (35-104); Anion Gap 11 (5-15); BUN 19 mg/dL (4-19); BUN/Creat Ratio 25.9 RATIO (10-20); Calcium,Total 9.7 mg/dL (7.6-11.0); Carbon Dioxide 27.7 mmol/L (21.0-32.0); Chloride 104 mmol/L (98-108); Globulin 2.9 g/dL (2.2-4.2); Glucose 91 mg/dL (70-99); Potassium 4.8 mmol/L (3.3-5.1)
== END | disposition home or self-care (01) ==
LOC: MFPLAB 15:42
PROVIDERS: PCP Family Medicine; Visit Provider Family Medicine
DX: E87.5 Hyperkalemia (principal)
CPT/HCPCS: 36415; 80053

== ENCOUNTER → 2025-10-19 | Outpatient (CLI) | payer MEDICARE, OTHER, SELFPAY ==
--- NOTE | 2025-10-19 11:24 | RAD_ITS ---
EXAM: XR Right Shoulder Complete, 2 or More Views CLINICAL INDICATION: RIGHT SHOULDER INJURY TECHNIQUE: Two or more views of the right shoulder. COMPARISON: No relevant prior studies available. FINDINGS: BONES/JOINTS: Mild degenerative change of the acromioclavicular and glenohumeral joints. No acute fracture. No dislocation. SOFT TISSUES: Soft tissue swelling. Next. RAD/Shoulder min 2 Views IMPRESSION: Degenerative changes as above. Reading Location: [id number]
== END | disposition home or self-care (01) ==
LOC: MTRAD 11:24
PROVIDERS: PCP Family Medicine; Referring Provider Family Medicine; Visit Provider Family Medicine
DX: S49.91XA Unspecified injury of right shoulder and upper arm, initial encounter (principal)
CPT/HCPCS: 73030

== ENCOUNTER 2025-11-23 15:42 | Outpatient (CLI) | payer MEDICARE, OTHER, SELFPAY ==
[2025-11-23 17:50] LABS: Hematocrit 42.9 % (37-47); Hemoglobin 14.0 g/dL (12.0-15.0); Mean Corp Hgb Conc 32.6 g/dL (32-36); Mean Corpuscular Volume 86.7 fL (81-99); Mean Platelet Vol. 11.0 fl (6.2-12.0); Platelet Count 265 K/mm3 (150-450); RBC Distribution Width CV 13.9 % (11.6-14.6); RBC Distribution Width SD 44.4 fl (35.1-43.9); Red Blood Count 4.95 M/mm3 (4.2-5.4); White Blood Count 6.5 K/mm3 (4.4-11.0)
[2025-11-23 18:22] LABS: Ferritin 64 ng/mL (22-378); Pro- Brain NATRIURETIC PEPTIDE 174 pg/mL (<=1800)
[2025-11-23 19:08] LABS: Iron 56 ug/dL (50-170); Iron Binding Capacity,Total 328 ug/dL (250-450); Iron Binding Capacity,Unsat 272 ug/dL (228-428)
== END 2025-11-23 23:59 | disposition home or self-care (01) ==
LOC: MFPLAB 15:43
PROVIDERS: PCP Family Medicine; Referring Provider Family Medicine; Visit Provider Family Medicine
DX: Z86.2 Personal history of diseases of the blood and blood-forming organs and certain disorders involving the immune mechanism (principal)
CPT/HCPCS: 36415; 82728; 83540; 83550; 83880; 85027